=== PATIENT | male | born 1965 | race Caucasian/White ===

== ENCOUNTER 2016-12-02 18:53 | Emergency (ER) | payer OTHER ==
[~2016-12-02] VITALS: Ht 175.3 cm; Wt 75.0 kg
[~2016-12-02 18:53] MED LIST: GABA600T PO; HYDR-3533 PO; LANTINJ SQ
[2016-12-02 18:55] VITALS: BP 154/84; PULSE 89; RESP 20; TEMP 98.2; O2SAT 99
[2016-12-02] MEDS ORDERED: LEVEMIR SQ (23:07)
[2016-12-02] MEDS ORDERED: LYRI200C PO (23:07)
[2016-12-02] MEDS ORDERED: DULO1CAP2 PO (23:07)
--- NOTE | 2016-12-02 23:07 | PD ---
HPI Chief Complaint: Medical Clearance Time Seen by Provider: 22:46 Travel History International Travel<30 days: No Contact w/Intl Traveler<30days: No Traveled to known affect area: No History of Present Illness HPI 51-year-old male requesting refill for Cymbalta, Lyrica, Levemir. Patient has history of diabetes and diabetic neuropathy, cervical stenosis. Patient recently moved to [facility] and does not have a local physician. Patient ran out of his medication for the past 2 days. Patient denies any headache. Patient denies any chest pain or shortness of breath. Patient denies abdominal pain. Patient denies any recent injury. Patient denies any fever chills. PFSH Past Medical History Arthritis: No Asthma: No Autoimmune Disease: No Cardiovascular Problems: No COPD: No Cerebrovascular Accident: No Diabetes: Yes Diminished Hearing: No Gastrointestinal Disorders: No Kidney Stones: No Psychiatric: No Renal Failure: No Seizures: No Sleep Apnea: No PNEUMOCCOCAL Vaccine (Year): 3 Past Surgical History Other Surgery: Yes (RIGHT HAND) Social History Alcohol Use: No (quit last year) Tobacco Use: Yes (0.5 ppd) Substance Use: Yes (marijuana) Allergies-Medications (Allergen,Severity, Reaction): Coded Allergies: White Fish (Verified Allergy, Severe, 02/14/16) Reported Meds & Prescriptions Reported Meds & Active Scripts Active Lortab 5 mg/325 mg (Hydrocodone/Acetaminophen 5 mg/325 mg) 1 Tab 1 Tab PO Q6H PRN Reported Lantus Solostar Pen (Insulin Glargine) 100 Units/Ml Pen 12 Units SQ BID Gabapentin 600 Mg Tab 600 Mg PO BID Review of Systems General / Constitutional: No: Fever Eyes: No: Visual changes HENT: No: Headaches Cardiovascular: No: Chest Pain or Discomfort Respiratory: No: Shortness of Breath Gastrointestinal: No: Abdominal Pain Genitourinary: No: Dysuria Musculoskeletal: No: Pain Skin: No Rash Neurologic: No: Weakness Psychiatric: No: Depression Endocrine: No: Polydipsia Hematologic/Lymphatic: No: Easy Bruising Physical Exam Narrative GENERAL: Well-nourished, well-developed patient. SKIN: Focused skin assessment warm/dry. HEAD: Normocephalic. EYES: No scleral icterus. No injection or drainage. NECK: Supple, trachea midline. No JVD or lymphadenopathy. CARDIOVASCULAR: Regular rate and rhythm without murmurs, gallops, or rubs. RESPIRATORY: Breath sounds equal bilaterally. No accessory muscle use. GASTROINTESTINAL: Abdomen soft, non-tender, nondistended. MUSCULOSKELETAL: No cyanosis, or edema. BACK: Nontender without obvious deformity. No CVA tenderness. Neurologic exam: Patient's awake alert oriented 3. Patient moves all extremity well. Data Data Last Documented VS Vital Signs Date Time Temp Pulse Resp B/P Pulse Ox O2 Delivery O2 Flow Rate FiO2 12/02/16 18:55 98.2 89 20 154/84 99 MDM Medical Decision Making Medical Screen Exam Complete: Yes Emergency Medical Condition: Yes Differential Diagnosis Differential diagnosis including medication refill, hyperglycemia, DKA. Narrative Course 51-year-old male with history diabetes and diabetic neuropathy requesting refill medications. I advised patient that we'll refill 2 weeks of medications for him and advised patient to follow up with local physician for further refill and follow-up. Accu-Chek blood sugar in the ED is 101. Diagnosis Primary Impression: History of diabetes mellitus Additional Impression: Diabetic neuropathy Qualified Code: E08.43 - Diabetic autonomic neuropathy associated with diabetes mellitus due to underlying condition Patient Instructions: General Instructions Med/Other Pt SpecificInfo: Prescription(s) given Scripts Insulin Detemir Inj (Levemir Inj)1,000 unit/ 10 ML Vial16 Units SQ BID #10 VIAL Ref 0 Do not mix with any other Insulin. Prov:Enrique Dominguez MD 12/02/16 Pregabalin (Lyrica)200 Mg Bqw239 Mg PO BID #28 CAP Ref 0 Prov:Enrique Dominguez MD 12/02/[address] 30 Mg Capdr30 Mg PO DAILY #14 CAP Ref 0 Prov:Enrique Dominguez MD 12/02/16 Disposition: 01 DISCHARGE HOME Condition: Stable Enrique Dominguez MD December 02, 2016 23:07
== END 2016-12-02 23:25 | disposition home or self-care (01) ==
LOC: NEPD 18:53
DX: E11.40 Type 2 diabetes mellitus with diabetic neuropathy, unspecified (principal); F17.210 Nicotine dependence, cigarettes, uncomplicated
CPT/HCPCS: 99281

== ENCOUNTER 2017-11-04 11:28 | Inpatient (IN) | payer MEDICARE, MEDICAID ==
[~2017-11-04] VITALS: Ht 180.3 cm; Wt 74.1 kg
[2017-11-04] VITALS (9 sets, daily range): BP systolic 154–213; BP diastolic 75–100; PULSE 74–88; RESP 16–20; TEMP 98.4; O2SAT 94–96
[~2017-11-04 11:28] MED LIST changes: +DULO1CAP2 PO; -LANTINJ SQ; +LEVEMIR SQ; +LYRI200C PO
--- NOTE | 2017-11-04 12:09 | RADRPT ---
EXAM DATE/TIME: 11/04/2017 12:01 [facility] COMPARISON: No previous studies available for comparison. INDICATIONS : Chest pain and shortness of breath. MEDICAL HISTORY : Hypertension. SURGICAL HISTORY : None. ENCOUNTER: Initial ACUITY: 2 weeks PAIN SCORE: 3/10 LOCATION: Bilateral chest FINDINGS: PA and lateral views of the chest demonstrate a normal-sized cardiac silhouette. There is no effusion , consolidation, or pneumothorax. The bones and soft tissues demonstrate no acute abnormality. CONCLUSION: No acute cardiopulmonary abnormality is identified. Mohit Casanova MD on November 04, 2017 at 12:07 Board Certified Radiologist. This report was verified electronically.
[2017-11-04 12:41] LABS: AUTOMATED NEUTROPHIL # 2.3 TH/MM3 (1.8-7.7); BASOPHIL % 0.7 % (0.0-2.0); EOSINOPHIL % 1.1 % (0.0-4.0); HEMOGLOBIN 13.2 GM/DL (13.0-17.0); LYMPH % 20.2 % (9.0-44.0); LYMPHOCYTE # 0.7 TH/MM3 (1.0-4.8); MEAN CELL VOLUME 89.9 FL (80.0-100.0); MEAN CORPUSCULAR HEMOGLOBIN 29.8 PG (27.0-34.0); MEAN CORPUSCULAR HGB CONC 33.1 % (32.0-36.0); MEAN PLATELET VOLUME 9.7 FL (7.0-11.0); MONO % 14.2 % (0.0-8.0); MONOCYTE # 0.5 TH/MM3 (0-0.9); NEUT % 63.8 % (16.0-70.0); PLATELET COUNT 107 TH/MM3 (150-450); RED BLOOD COUNT 4.45 MIL/MM3 (4.50-5.90); RED CELL DISTRIBUTION WIDTH 14.4 % (11.6-17.2); WHITE BLOOD COUNT 3.6 TH/MM3 (4.0-11.0)
[2017-11-04 12:48] LABS: INTERNATIONAL NORMALIZED RATIO 1.1 RATIO
[2017-11-04 13:01] LABS: BICARBONATE 26.4 MEQ/L (21.0-32.0); BLOOD UREA NITROGEN 27 MG/DL (7-18); CALCIUM 8.2 MG/DL (8.5-10.1); CHLORIDE 105 MEQ/L (98-107); CREATININE 1.87 MG/DL (0.60-1.30); GLOMERULAR FILTRATION RATE 38 ML/MIN (>89); GLUCOSE,RANDOM 104 MG/DL (74-106); SODIUM (NA) 138 MEQ/L (136-145)
[2017-11-04 13:04] LABS: TROPONIN I 0.06 NG/ML (0.02-0.05)
--- NOTE | 2017-11-04 13:11 | PD ---
HPI Chief Complaint: Cardiac Complaint Time Seen by Provider: 12:55 Travel History International Travel<30 days: No Contact w/Intl Traveler<30days: No Traveled to known affect area: No History of Present Illness HPI 52-year-old male that presents to the ED for evaluation of chest pain. Patient has had chest pain for the past 2 weeks. Per patient comes and goes but seems to get worse with cough. Per patient he was seen by his primary care doctor today for evaluation of this this is been having cough and congestion and he thought he might just be bronchitis and he needed an antibiotic. Apparently the doctor did an EKG that was abnormal and told to come here. Patient has any history of heart disease. He states that he has had a stress test about a year or more ago. Has no solution designer. Has not taken aspirin today. He does have a history of diabetes and smoking. No recent travel. Pain is mostly to the right side of the chest. Per patient yesterday he had an episode of numbness and tingling to the right side of his body but this has since gone away. Per patient currently she still has chest pain in the chest pain is sharp 7 out of 10. Does not take any nitroglycerin. States having a little cough and congestion which she attributes to the symptoms. No history of headache or blurry vision or double vision. Has an allergy to fish. PFSH Past Medical History Arthritis: Yes Asthma: No Autoimmune Disease: No Cardiovascular Problems: No COPD: No Cerebrovascular Accident: No Diabetes: Yes Patient Takes Glucophage: No Diminished Hearing: No Gastrointestinal Disorders: No Hypertension: Yes Kidney Stones: No Musculoskeletal: Yes Psychiatric: No Renal Failure: No Seizures: No Sleep Apnea: No PNEUMOCCOCAL Vaccine (Year): 3 Past Surgical History Other Surgery: Yes (RIGHT HAND) Social History Alcohol Use: Yes (occu 4 days ago) Tobacco Use: Yes (1/2 ppd) Substance Use: No Allergies-Medications (Allergen,Severity, Reaction): Coded Allergies: Fish Containing Products (Unverified Allergy, Severe, 03/01/17) Reported Meds & Prescriptions Reported Meds & Active Scripts Active Levemir Inj (Insulin Detemir) 1,000 unit/ 10 ML Vial 16 Units SQ BID Do not mix with any other Insulin. Lyrica (Pregabalin) 200 Mg Cap 200 Mg PO BID Duloxetine DR (Duloxetine HCl) 30 Mg Capdr 30 Mg PO DAILY Review of Systems Except as stated in HPI: all other systems reviewed are Neg Physical Exam Narrative GENERAL: SKIN: Warm and dry. HEAD: Atraumatic. Normocephalic. EYES: Pupils equal and round. No scleral icterus. No injection or drainage. ENT: No nasal bleeding or discharge. Mucous membranes pink and moist. Tongue is midline. No uvula deviation. NECK: Trachea midline. No JVD. CARDIOVASCULAR: Regular rate and rhythm. No murmurs, S3, S4. RESPIRATORY: No accessory muscle use. Clear to auscultation. Breath sounds equal bilaterally. GASTROINTESTINAL: Abdomen soft, non-tender, nondistended. Hepatic and splenic margins not palpable. MUSCULOSKELETAL: Extremities without clubbing, cyanosis, or edema. No obvious deformities. Full range of motion of the upper and lower extremities bilaterally. 2+ pulses bilaterally. NEUROLOGICAL: Awake and alert. No obvious cranial nerve deficits. Motor grossly within normal limits. Five out of 5 muscle strength in the arms and legs. Normal speech. PSYCHIATRIC: Appropriate mood and affect; insight and judgment normal. Data Data Last Documented VS Vital Signs Date Time Temp Pulse Resp B/P (MAP) Pulse Ox O2 Delivery O2 Flow Rate FiO2 11/04/17 14:09 176/88 (117) 11/04/17 13:05 80 18 96 Room Air 11/04/17 11:45 98.4 Orders Orders Electrocardiogram (11/04/17 11:49) Complete Blood Count With Diff (11/04/17 11:49) Basic Metabolic Panel (Bmp) (11/04/17 11:49) Ckmb (Isoenzyme) Profile (11/04/17 11:49) Troponin I (11/04/17 11:49) Iv Access Insert/Monitor (11/04/17 11:49) Ecg Monitoring (11/04/17 11:49) Oxygen Administration (11/04/17 11:49) Oximetry (11/04/17 11:49) Chest, Pa & Lat (11/04/17 ) Act Partial Throm Time (Ptt) (11/04/17 11:49) Prothrombin Time / Inr (Pt) (11/04/17 11:49) D-Dimer (11/04/17 13:02) Ct Brain W/O Iv Contrast(Rout) (11/04/17 ) Aspirin (Aspirin) (11/04/17 13:15) CKMB (11/04/17 12:35) CKMB% (11/04/17 12:35) Nitroglycerin Sl (Nitrostat Sl) (11/04/17 13:15) Ventilation & Perfusion Scan (11/04/17 ) Nitroglycerin 2% Oint (Nitroglycerin 2% (11/04/17 13:30) Nitroglycerin-D5w 50 Mg/250 Ml (Nitrogly (11/04/17 14:00) Admit To Inpatient (11/04/17 ) Vital Signs (Adult) Q4H (11/04/17 15:12) Activity Oob Ad Marie (11/04/17 15:12) Hand Ii Blocker / Telemetry .CONTINUOUS (11/04/17 15:12) Intake + Output JACOBO.QSHIFT (11/04/17 15:12) Notify Dr: Other (11/04/17 15:12) Diet Npo (11/04/17 Dinner) Sodium Chloride 0.9% Flush (Ns Flush) (11/04/17 15:15) Sodium Chloride 0.9% Flush (Ns Flush) (11/04/17 21:00) Ondansetron Inj (Zofran Inj) (11/04/17 15:15) Basic Metabolic Panel (Bmp) (11/05/17 06:00) Complete Blood Count With Diff (11/05/17 06:00) Creatine Kinase (Cpk) (11/04/17 15:12) Creatine Kinase (Cpk) (11/04/17 21:12) Troponin I (11/04/17 15:12) Troponin I (11/04/17 21:12) Electrocardiogram (11/04/17 15:12) Electrocardiogram (11/04/17 21:12) Heparin Inj (Heparin Inj) (11/04/17 15:15) Scd Bilateral/Knee High JACOBO.BID (11/04/17 15:12) Naloxone Inj (Narcan Inj) (11/04/17 15:15) Docusate Sodium-Senna (Tasha-Colace) (11/04/17 21:00) Magnesium Hydroxide Liq (Milk Of Magnesi (11/04/17 15:15) Sennosides (Senokot) (11/04/17 15:15) Bisacodyl Supp (Dulcolax Supp) (11/04/17 15:15) Lactulose Liq (Lactulose Liq) (11/04/17 15:15) Inpatient Certification (11/04/17 ) Dulneo Carroll (Reynaldo Carroll) (11/05/17 09:00) Insulin Detemir Inj (Levemir Inj) (11/04/17 21:00) Pregabalin (Lyrica) (11/04/17 21:00) Bedside Glucose JACOBO.CSUGAR (11/04/17 15:15) Blood Glucose Goal (Criteria) (11/04/17 15:15) Hypoglycemia 70 Mg/Dl Or < (11/04/17 15:15) Notify Dr: Other (11/04/17 15:15) Dextrose 50% In Naveed (Vial) Inj (D50w (Vi (11/04/17 15:15) Glucagon Inj (Glucagon Inj) (11/04/17 15:15) Insulin Aspart Supplemtl Scale (Novolog (11/04/17 17:00) Morphine Inj (Morphine Inj) (11/04/17 15:30) Aspirin Ec (Ecotrin Ec) (11/05/17 09:00) Admit Order (Ed Use Only) (11/04/17 15:22) Labs Laboratory Tests Test 11/04/17 12:35 White Blood Count 3.6 TH/MM3 Red Blood Count 4.45 MIL/MM3 Hemoglobin 13.2 GM/DL Hematocrit 40.0 % Mean Corpuscular Volume 89.9 FL Mean Corpuscular Hemoglobin 29.8 PG Mean Corpuscular Hemoglobin Concent 33.1 % Red Cell Distribution Width 14.4 % Platelet Count 107 TH/MM3 Mean Platelet Volume 9.7 FL Neutrophils (%) (Auto) 63.8 % Lymphocytes (%) (Auto) 20.2 % Monocytes (%) (Auto) 14.2 % Eosinophils (%) (Auto) 1.1 % Basophils (%) (Auto) 0.7 % Neutrophils # (Auto) 2.3 TH/MM3 Lymphocytes # (Auto) 0.7 TH/MM3 Monocytes # (Auto) 0.5 TH/MM3 Eosinophils # (Auto) 0.0 TH/MM3 Basophils # (Auto) 0.0 TH/MM3 CBC Comment DIFF FINAL Differential Comment Prothrombin Time 11.0 SEC Prothromb Time International Ratio 1.1 RATIO Activated Partial Thromboplast Time 30.9 SEC D-Dimer Quantitative (PE/DVT) 1.21 MG/L FEU Blood Urea Nitrogen 27 MG/DL Creatinine 1.87 MG/DL Random Glucose 104 MG/DL Calcium Level 8.2 MG/DL Sodium Level 138 MEQ/L Potassium Level 3.8 MEQ/L Chloride Level 105 MEQ/L Carbon Dioxide Level 26.4 MEQ/L Anion Gap 7 MEQ/L Estimat Glomerular Filtration Rate 38 ML/MIN Total Creatine Kinase 207 U/L Creatine Kinase MB 8.5 NG/ML Troponin I 0.06 NG/ML MDM Medical Decision Making Medical Screen Exam Complete: Yes Emergency Medical Condition: Yes Medical Record Reviewed: Yes Interpretation(s) CBC & BMP Diagram 11/04/17 12:35 Calcium Level 8.2 L Last Impressions Head CT 11/04/17 0000 Signed Impressions: Service Date/Time: Saturday, November 04, 2017 13:18 - CONCLUSION: Negative for acute process Santi Melchor MD FACR Chest X-Ray 11/04/17 0000 Signed Impressions: Service Date/Time: Saturday, November 04, 2017 12:01 - CONCLUSION: No acute cardiopulmonary abnormality is identified. Mohit Casanova MD troponin of 0.06 d-dimmer elevated CK WNL EKG shows sinus rhythm with no sign of acute ischemia or arrythmia read by me and attending. some depressions noted. Differential Diagnosis Chest pain versus atypical chest pain versus ACS versus NSTEMI versus STEMI versus bronchitis versus CVA versus PE Narrative Course 52-year-old male that presents to the ED for evaluation of chest pain. Patient was properly examined and was found to have signs and symptoms concerning for ACS. Labs and imaging order. Labs and imaging were positive for positive troponin and d-dimer. VQ scan was ordered. Patient appears to be in acute kidney injury. Recommendation at this time is for admission. My attending evaluated him and recommends nitro drip. Patient already given aspirin and nitroglycerin while patient was in the room. Accommodations for admission further eval. My attending spoke with Dr. Easley who agrees to admission. Patient was admitted. Procedures EKG Prior to Arrival: Yes Diagnosis Primary Impression: Chest pain in adult Additional Impressions: Troponin level elevated Hypertension Qualified Codes: I10 - Essential (primary) hypertension Admitting Information Admitting Physician Requests: Admit Francisco Javier Heard Nov 04, 2017 13:10
[2017-11-04] MEDS ORDERED: NITROGLYCERIN 0.4 MG SL 25 TABS/BTL SL ONE (13:15)
[2017-11-04] MEDS ORDERED: ASPIRIN 325 MG TAB PO ONE (13:15)
--- NOTE | 2017-11-04 13:27 | RADRPT ---
EXAM DATE/TIME: 11/04/2017 13:18 [facility] COMPARISON: No previous studies available for comparison. INDICATIONS : Right sided numbness with dizziness. RADIATION DOSE: 35.53 CTDIvol (mGy) MEDICAL HISTORY : Hypertension. diabetes SURGICAL HISTORY : None. ENCOUNTER: Initial ACUITY: 1 day PAIN SCALE: 0/10 LOCATION: cranial TECHNIQUE: Multiple contiguous axial images were obtained of the head. Using automated exposure control and adj ustment of the mA and/or kV according to patient size, radiation dose was kept as low as reasonably a chievable to obtain optimal diagnostic quality images. DICOM format image data is available electro nically for review and comparison. FINDINGS: CEREBRUM: The ventricles are normal for age. No evidence of midline shift, mass lesion, hemorrhage or acute in farction. No extra-axial fluid collections are seen. POSTERIOR FOSSA: The cerebellum and brainstem are intact. The 4th ventricle is midline. The cerebellopontine angle i s unremarkable. EXTRACRANIAL: The visualized portion of the orbits is intact. SKULL: The calvaria is intact. No evidence of skull fracture. CONCLUSION: Negative for acute process Santi Melchor MD FACR on November 04, 2017 at 13:24 Board Certified Radiologist. This report was verified electronically.
[2017-11-04] MEDS ORDERED: NITROGLYCERIN 2% OINT 1 GM PACKET TOPICAL ONE (13:30)
[2017-11-04] MEDS ORDERED: NITROGLYCERIN-D5W 50 MG/250 ML 250 ML IV PRN ×2 (14:00→16:15)
--- NOTE | 2017-11-04 14:01 | PD ---
Physical Exam Narrative I, Dr. Piper, have reviewed the advance practice practitioner's documentation and am in agreement, met with the patient face to face, made the diagnosis, and the medical decision making was done by me. *My assessment and Findings: ACS vs. Pneumonia vs. bronchitis vs. TIA 52yo M here because he was sent by his doctor's office for abnormal EKG. Pt had chest pain that is across his chest for 2 weeks. Pain is pressure like and constant. Associated with sob and worst with cough, and bending down. Pt also said his right side was weak and numb yesterday but now has improved. Said he had right facial, right arm and right leg weakness and numbness that has resolved. Just a little tingling in right hand. Pt does not have any geoscientist and denies any heart attack or stroke. Labs reviewed, WBC 3.6. Mild thrombocytopenia at 107,000. BUN/creatinine elevated at 27/1.87 which is new from prior. Troponin mildly elevated at 0.06. D-dimer elevated. Unable to do CT angio due to elevated creatinine so VQ scan ordered. CXR negative. CT brain negative. Pt's chest pain is very atypical although EKG is concerning for ischemia. Troponin may be elevated secondary to ROCIO. Will consult cardiology. BP is still very elevated so will place pt on nitroglycerin drip and reevaluate chest pain. Discussed patient with geoscientist Dr. Reeder and he feels the this is LVH pattern. Discussed with Dr. Savage and accepted to her service. Data Data Last Documented VS Vital Signs Date Time Temp Pulse Resp B/P (MAP) Pulse Ox O2 Delivery O2 Flow Rate FiO2 11/04/17 14:09 176/88 (117) 11/04/17 13:05 80 18 96 Room Air 11/04/17 11:45 98.4 Orders Orders Electrocardiogram (11/04/17 11:49) Complete Blood Count With Diff (11/04/17 11:49) Basic Metabolic Panel (Bmp) (11/04/17 11:49) Ckmb (Isoenzyme) Profile (11/04/17 11:49) Troponin I (11/04/17 11:49) Iv Access Insert/Monitor (11/04/17 11:49) Ecg Monitoring (11/04/17 11:49) Oxygen Administration (11/04/17 11:49) Oximetry (11/04/17 11:49) Chest, Pa & Lat (11/04/17 ) Act Partial Throm Time (Ptt) (11/04/17 11:49) Prothrombin Time / Inr (Pt) (11/04/17 11:49) D-Dimer (11/04/17 13:02) Ct Brain W/O Iv Contrast(Rout) (11/04/17 ) Aspirin (Aspirin) (11/04/17 13:15) CKMB (11/04/17 12:35) CKMB% (11/04/17 12:35) Nitroglycerin Sl (Nitrostat Sl) (11/04/17 13:15) Ventilation & Perfusion Scan (11/04/17 ) Nitroglycerin 2% Oint (Nitroglycerin 2% (11/04/17 13:30) Nitroglycerin-D5w 50 Mg/250 Ml (Nitrogly (11/04/17 14:00) Vital Signs (Adult) Q4H (11/04/17 15:12) Activity Oob Ad Marie (11/04/17 15:12) Glass Wool Blanket Machine Feeder / Telemetry .CONTINUOUS (11/04/17 15:12) Intake + Output JACOBO.QSHIFT (11/04/17 15:12) Notify Dr: Other (11/04/17 15:12) Sodium Chloride 0.9% Flush (Ns Flush) (11/04/17 15:15) Sodium Chloride 0.9% Flush (Ns Flush) (11/04/17 21:00) Ondansetron Inj (Zofran Inj) (11/04/17 15:15) Basic Metabolic Panel (Bmp) (11/05/17 06:00) Complete Blood Count With Diff (11/05/17 06:00) Creatine Kinase (Cpk) (11/04/17 15:12) Creatine Kinase (Cpk) (11/04/17 21:12) Troponin I (11/04/17 15:12) Troponin I (11/04/17 21:12) Electrocardiogram (11/04/17 15:12) Electrocardiogram (11/04/17 21:12) Heparin Inj (Heparin Inj) (11/04/17 15:15) Scd Bilateral/Knee High JACOBO.BID (11/04/17 15:12) Naloxone Inj (Narcan Inj) (11/04/17 15:15) Docusate Sodium-Senna (Tasha-Colace) (11/04/17 21:00) Magnesium Hydroxide Liq (Milk Of Magnesi (11/04/17 15:15) Sennosides (Senokot) (11/04/17 15:15) Bisacodyl Supp (Dulcolax Supp) (11/04/17 15:15) Lactulose Liq (Lactulose Liq) (11/04/17 15:15) Duloxetine Dr (Reynaldo Carroll) (11/05/17 09:00) Insulin Detemir Inj (Levemir Inj) (11/04/17 21:00) Pregabalin (Lyrica) (11/04/17 21:00) Bedside Glucose JACOBO.CSUGAR (11/04/17 15:15) Blood Glucose Goal (Criteria) (11/04/17 15:15) Hypoglycemia 70 Mg/Dl Or < (11/04/17 15:15) Notify Dr: Other (11/04/17 15:15) Dextrose 50% In Naveed (Vial) Inj (D50w (Vi (11/04/17 15:15) Glucagon Inj (Glucagon Inj) (11/04/17 15:15) Insulin Aspart Supplemtl Scale (Novolog (11/04/17 17:00) Morphine Inj (Morphine Inj) (11/04/17 15:30) Aspirin Ec (Ecotrin Ec) (11/05/17 09:00) Admit Order (Ed Use Only) (11/04/17 15:22) Labs Laboratory Tests Test 11/04/17 12:35 White Blood Count 3.6 TH/MM3 Red Blood Count 4.45 MIL/MM3 Hemoglobin 13.2 GM/DL Hematocrit 40.0 % Mean Corpuscular Volume 89.9 FL Mean Corpuscular Hemoglobin 29.8 PG Mean Corpuscular Hemoglobin Concent 33.1 % Red Cell Distribution Width 14.4 % Platelet Count 107 TH/MM3 Mean Platelet Volume 9.7 FL Neutrophils (%) (Auto) 63.8 % Lymphocytes (%) (Auto) 20.2 % Monocytes (%) (Auto) 14.2 % Eosinophils (%) (Auto) 1.1 % Basophils (%) (Auto) 0.7 % Neutrophils # (Auto) 2.3 TH/MM3 Lymphocytes # (Auto) 0.7 TH/MM3 Monocytes # (Auto) 0.5 TH/MM3 Eosinophils # (Auto) 0.0 TH/MM3 Basophils # (Auto) 0.0 TH/MM3 CBC Comment DIFF FINAL Differential Comment Prothrombin Time 11.0 SEC Prothromb Time International Ratio 1.1 RATIO Activated Partial Thromboplast Time 30.9 SEC D-Dimer Quantitative (PE/DVT) 1.21 MG/L FEU Blood Urea Nitrogen 27 MG/DL Creatinine 1.87 MG/DL Random Glucose 104 MG/DL Calcium Level 8.2 MG/DL Sodium Level 138 MEQ/L Potassium Level 3.8 MEQ/L Chloride Level 105 MEQ/L Carbon Dioxide Level 26.4 MEQ/L Anion Gap 7 MEQ/L Estimat Glomerular Filtration Rate 38 ML/MIN Total Creatine Kinase 207 U/L Creatine Kinase MB 8.5 NG/ML Troponin I 0.06 NG/ML MDM Supervised Visit with GINGER: Yes Interpretation(s) EKG: NSR 81bpm. Normal axis. 1mm ST elevation V1. Mild ST depression V5, V6. This is new from prior. EKG unchanged from EKG done in clinic. Machelle Piper DO Nov 04, 2017 14:01
[2017-11-04] MEDS ORDERED: NALOXONE HCL 0.4 MG/ML AMP IV PUSH PRN (15:15)
[2017-11-04] MEDS: HEPARIN SODIUM - SQ 10,000 UNITS/ML VIAL SQ SCH (15:15)
[2017-11-04] MEDS ORDERED: GLUCAGON 1 MG/ML VIAL OTHER PRN (15:15)
[2017-11-04] MEDS ORDERED: SODIUM CHLORIDE 0.9% FLUSH 10 ML FLUSH IV FLUSH PRN (15:15)
[2017-11-04] MEDS ORDERED: ONDANSETRON HCL 4 MG/2 ML VIAL IVP PRN (15:15)
[2017-11-04] MEDS ORDERED: BISACODYL 10 MG SUPP RECTAL PRN (15:15)
[2017-11-04] MEDS ORDERED: PHARMACY NEEDS HT/WT ENTERED INTO MEDITECH OTHER SCH (15:15)
[2017-11-04] MEDS ORDERED: MAGNESIUM HYDROXIDE SUSP 30 ML CUP PO PRN (15:15)
[2017-11-04] MEDS ORDERED: LACTULOSE SYRUP 20 GM/30 ML CUP PO PRN (15:15)
[2017-11-04] MEDS ORDERED: SENNOSIDES 8.6 MG TAB PO PRN (15:15)
[2017-11-04] MEDS ORDERED: DEXTROSE 50% IN WATER 50 ML VIAL(D50) IV PUSH PRN (15:15)
--- NOTE | 2017-11-04 15:49 | RADRPT ---
EXAM DATE/TIME: 11/04/2017 14:19 [facility] COMPARISON: CHEST PA & LAT, November 04, 2017, 12:01. INDICATIONS : Right sided chest pain for two weeks with dyspnea. DOSE: 1.2 mCi Tc99m DTPA 8.8 mCi Tc99m MAA MEDICAL HISTORY : Diabetes mellitus type 2. Hypertension. SURGICAL HISTORY : Right hand. ENCOUNTER: Initial ACUITY: 2 weeks PAIN SCALE: 4/10 LOCATION: Right chest TECHNIQUE: Following five minutes of tidal breathing of DTPA aerosol, planar images of the lungs were performed in eight projections. The patient was then injected with MAA, and eight-view perfusion scan was perf ormed. FINDINGS: There is a homogeneous pattern of aerosol delivery to the periphery of both lungs. No focal ventilat ory defects are seen. The perfusion lung scan demonstrates a homogenous pattern of uptake in both lungs. No segmental or s ubsegmental defects are seen. CONCLUSION: Low probability scan for pulmonary embolism Mohit Milan MD on November 04, 2017 at 15:43 Board Certified Radiologist. This report was verified electronically.
[2017-11-04] MEDS: INSULIN ASPART SUPPLEMENTAL SCALE SQ SCH ×2 (16:42→23:19)
[2017-11-04 17:17] LABS: TROPONIN I 0.05 NG/ML (0.02-0.05)
--- NOTE | 2017-11-04 20:00 | HHI.HP ---
[facility] Service [facility] Primary Care Physician Non-Staff Admission Diagnosis chest pain, positive troponin, hypertension Diagnoses: (1) Chest pain Diagnosis: Principal (2) HTN (hypertension) Diagnosis: Principal (3) Abnormal EKG Diagnosis: Principal (4) DM (diabetes mellitus) Diagnosis: Principal (5) Tobacco abuse Diagnosis: Principal Travel History International Travel<30 Days: No Contact w/Intl Traveler <30 Da: No Traveled to Known Affected Are: No History of Present Illness This is a 52-year-old male with a PMH of HTN, DM and Tobacco Abuse who was referred to the ER by his PCP for eval of chest pain and abnormal EKG. Per patient he's had ongoing congestion and non-productive cough for approx 2wks. Symptoms progressive, now associated w/ chest pain. Pain is substernal, 8/10, constant, sharp, worse w/ lying down. Went to PCP to get Rx for Z-pack and had abnormal EKG at which time he was referred to the ER. Reports no improvement w / NTG. No h/o CAD. On arrival, BP 190/91, HR 84, O2 sat 96% on RA, Afebrile. CBC essentially unremarkable, platelets 107, previously 136 on 02/14/2016. Creatinine 1.87, previously 0.84 on 02/14/2016. Troponin 0.06. D-dimer 1.21. INR 1.1. CXR with no acute findings. CT Head negative. V/Q Scan low probability for PE. Review of Systems Except as stated in HPI: all other systems reviewed are Neg ROS: 14 point review of systems otherwise negative. Past Family Social History Past Medical History PMH: HTN, DM and Tobacco Abuse Past Surgical History PAST SURGICAL HISTORY: Right Hand Surgery Allergies: Coded Allergies: Fish Containing Products (Unverified Allergy, Severe, 03/01/17) Family History PAST FAMILY HISTORY: Reviewed. No h/o DM or CAD Social History PAST SOCIAL HISTORY: Occasional alcohol. Smokes 1/2ppd. Negative for drugs. Physical Exam Vital Signs Vital Signs Date Time Temp Pulse Resp B/P (MAP) Pulse Ox O2 Delivery O2 Flow Rate FiO2 4/20/18 16:09 74 18 154/75 (101) 94 Room Air 11/04/17 14:09 176/88 (117) 11/04/17 13:29 196/91 (126) 11/04/17 13:05 80 18 213/100 (137) 96 Room Air 11/04/17 13:05 97 Room Air 11/04/17 11:45 98.4 84 16 190/91 (124) 96 Physical Exam PE: GENERAL: Middle-aged white male in no acute distress. +wet cough. Family at bedside. HEENT: PERRLA, EOMI. No scleral icterus or conjunctival pallor. No lid lag or facial droop. CARDIOVASCULAR: Regular rate and rhythm. No obvious murmurs to auscultation. No chest tenderness to palpation. RESPIRATORY: No obvious rhonchi or wheezing. Clear to auscultation. Breath sounds equal bilaterally. GASTROINTESTINAL: Abdomen soft, non-tender, nondistended. BS normal. MUSCULOSKELETAL: Extremities without clubbing, cyanosis, or edema. No obvious deformities. NEUROLOGICAL: Awake, alert and oriented x4. No focal neurologic deficits. Moving both upper and lower extremities spontaneously. Laboratory Laboratory Tests Test 11/04/17 12:35 11/04/17 16:34 White Blood Count 3.6 Red Blood Count 4.45 Hemoglobin 13.2 Hematocrit 40.0 Mean Corpuscular Volume 89.9 Mean Corpuscular Hemoglobin 29.8 Mean Corpuscular Hemoglobin Concent 33.1 Red Cell Distribution Width 14.4 Platelet Count 107 Mean Platelet Volume 9.7 Neutrophils (%) (Auto) 63.8 Lymphocytes (%) (Auto) 20.2 Monocytes (%) (Auto) 14.2 Eosinophils (%) (Auto) 1.1 Basophils (%) (Auto) 0.7 Neutrophils # (Auto) 2.3 Lymphocytes # (Auto) 0.7 Monocytes # (Auto) 0.5 Eosinophils # (Auto) 0.0 Basophils # (Auto) 0.0 CBC Comment DIFF FINAL Differential Comment Prothrombin Time 11.0 Prothromb Time International Ratio 1.1 Activated Partial Thromboplast Time 30.9 D-Dimer Quantitative (PE/DVT) 1.21 Blood Urea Nitrogen 27 Creatinine 1.87 Random Glucose 104 Calcium Level 8.2 Sodium Level 138 Potassium Level 3.8 Chloride Level 105 Carbon Dioxide Level 26.4 Anion Gap 7 Estimat Glomerular Filtration Rate 38 Total Creatine Kinase 207 172 Creatine Kinase MB 8.5 Troponin I 0.06 0.05 Result Diagram: 11/04/17 1235 11/04/17 1235 Caprinfloyd VTE Risk Assessment Jose Davidrini VTE Risk Assessment: No/Low Risk (score <= 1) Caprini Risk Assessment Model Point Value = 1 Point Value = 2 Point Value = 3 Point Value = 5 Age 41-60 Minor surgery BMI > 25 kg/m2 Swollen legs Varicose veins or History of unexplained or recurrent spontaneous Oral contraceptives or hormone replacement Sepsis (< 1 month) Serious lung disease, including pneumonia (< 1 month) Abnormal pulmonary function Acute myocardial infarction Congestive heart failure (< 1 month) History of inflammatory bowel disease Medical patient at bed rest Age 61-74 Arthroscopic surgery Major open surgery (> 45 min) Laparoscopic surgery (> 45 min) Malignancy Confined to bed (> 72 hours) Immobilizing plaster cast Central venous access Age >= 75 History of VTE Family history of VTE Factor V Leiden Prothrombin [id number] Lupus anticoagulant Anticardiolipin antibodies Elevated serum homocysteine Heparin-induced thrombocytopenia Other congenital or acquired thrombophilia Stroke (< 1 month) Elective arthroplasty Hip, pelvis, or leg fracture Acute spinal cord injury (< 1 month) Prophylaxis Regimen Total Risk Factor Score Risk Level Prophylaxis Regimen 0-1 Low Early ambulation 2 Moderate Order ONE of the following: *Sequential Compression Device (SCD) *Heparin 5000 units SQ BID 3-4 Higher Order ONE of the following medications: *Heparin 5000 units SQ TID *Enoxaparin/Lovenox 40 mg SQ daily (WT < 150 kg, CrCl > 30 mL/min) *Enoxaparin/Lovenox 30 mg SQ daily (WT < 150 kg, CrCl > 10-29 mL/min) *Enoxaparin/Lovenox 30 mg SQ BID (WT < 150 kg, CrCl > 30 mL/min) AND/OR *Sequential Compression Device (SCD) 5 or more Highest Order ONE of the following medications: *Heparin 5000 units SQ TID (Preferred with Epidurals) *Enoxaparin/Lovenox 40 mg SQ daily (WT < 150 kg, CrCl > 30 mL/min) *Enoxaparin/Lovenox 30 mg SQ daily (WT < 150 kg, CrCl > 10-29 mL/min) *Enoxaparin/Lovenox 30 mg SQ BID (WT < 150 kg, CrCl > 30 mL/min) AND *Sequential Compression Device (SCD) Assessment and Plan Problem List: (1) Chest pain ICD Code: R07.9 - Chest pain, unspecified (2) Abnormal EKG ICD Code: R94.31 - Abnormal electrocardiogram [ECG] [EKG] (3) HTN (hypertension) ICD Code: I10 - Essential (primary) hypertension (4) DM (diabetes mellitus) ICD Code: E11.9 - Type 2 diabetes mellitus without complications (5) Tobacco abuse ICD Code: Z72.0 - Tobacco use Assessment and Plan A/P: 1. Chest Pain: w/ associated cough/congestion, worse when lying down, CXR w/ no acute findings, images reviewed by me. Initial trop 0.06, repeat trop 0.05. Will admit for Observation, Telemetry, check serial cardiac enzymes for trend. ASA, Statin, Metoprolol. Check Lipid Profile. Reports no improvement w / NTG and c/o headache, will hold. Morphine prn. 2. Abnormal EKG: referred to ER for abnormal outpatient EKG in PCP office, EKG here w/ some ST depressions, but no elevations to suggest acute ischemia. Will repeat EKG w/ next set of trop. Consult Cardiology for further recommendations in light of chest pain and abnormal EKG. Multiple risk factors including HTN, DM and Tobacco Abuse. 3. HTN: Uncontrolled. BP 200's on arrival, start Metoprolol, monitor BP, antihypertensives as needed. 4. DM: Sliding scale w/ Accu-Cheks. Check Hgb A1c, resume home Insulin. 5. Tobacco Abuse: Pt counselled. Ativan prn if needed. No NicoDerm to avoid vasoconstriction. 6. DVT Prophylaxis: Heparin sq 7. Social work for DC planning as needed. 8. Case discussed at length with the ER physician, lab/record/imaging reviewed by me. Leah Guadarrama MD Nov 04, 2017 20:00
[2017-11-04] MEDS ORDERED: RESP: ALBUTEROL 2.5 MG/IPRATROPIUM 0.5 MG NEB (PRN) NEB (20:15)
[2017-11-04] MEDS: DOCUSATE SODIUM 50 MG/SENNA 8.6 MG TAB PO SCH (21:00)
[2017-11-04 22:56] LABS: TROPONIN I 0.05 NG/ML (0.02-0.05)
[2017-11-04] MEDS: PREGABALIN 100 MG CAP PO SCH (23:17)
[2017-11-04] MEDS: guaiFENesin E.R. 600 MG TAB PO SCH (23:17)
[2017-11-04] MEDS: INSULIN DETEMIR 100 UNITS/ML VIAL SQ SCH (23:18)
[2017-11-04] MEDS: SODIUM CHLORIDE 0.9% FLUSH 10 ML FLUSH IV FLUSH SCH (23:18)
[2017-11-04] MEDS: METOPROLOL TARTRATE 25 MG TAB PO SCH (23:18)
[2017-11-04] MEDS: LORazepam 2 MG/ML VIAL IV PUSH PRN (23:20)
[2017-11-04] MEDS: MORPHINE SULFATE 2 MG/ML SYRINGE IV PUSH PRN (23:20)
[2017-11-05] VITALS (9 sets, daily range): BP systolic 125–165; BP diastolic 60–87; PULSE 67–78; RESP 16–20; TEMP 97.8–98.4; O2SAT 95–96
[2017-11-05] MEDS: INSULIN ASPART SUPPLEMENTAL SCALE SQ SCH ×4 (08:00→20:42)
[2017-11-05 08:31] LABS: AUTOMATED NEUTROPHIL # 2.4 TH/MM3 (1.8-7.7); BASOPHIL % 0.7 % (0.0-2.0); EOSINOPHIL % 0.3 % (0.0-4.0); HEMATOCRIT 36.1 % (39.0-51.0); HEMOGLOBIN 12.1 GM/DL (13.0-17.0); LYMPHOCYTE # 0.8 TH/MM3 (1.0-4.8); MEAN CELL VOLUME 88.1 FL (80.0-100.0); MEAN CORPUSCULAR HEMOGLOBIN 29.6 PG (27.0-34.0); MEAN CORPUSCULAR HGB CONC 33.6 % (32.0-36.0); MEAN PLATELET VOLUME 10.2 FL (7.0-11.0); MONO % 13.6 % (0.0-8.0); MONOCYTE # 0.5 TH/MM3 (0-0.9); NEUT % 64.4 % (16.0-70.0); PLATELET COUNT 97 TH/MM3 (150-450); RED CELL DISTRIBUTION WIDTH 13.9 % (11.6-17.2); WHITE BLOOD COUNT 3.8 TH/MM3 (4.0-11.0)
[2017-11-05 08:52] LABS: BICARBONATE 23.6 MEQ/L (21.0-32.0); BLOOD UREA NITROGEN 26 MG/DL (7-18); CALCIUM 7.8 MG/DL (8.5-10.1); CHLORIDE 107 MEQ/L (98-107); CREATININE 1.95 MG/DL (0.60-1.30); GLOMERULAR FILTRATION RATE 36 ML/MIN (>89); GLUCOSE,RANDOM 136 MG/DL (74-106); SODIUM (NA) 138 MEQ/L (136-145)
[2017-11-05 08:53] LABS: CHOLESTEROL 173 MG/DL (120-200)
[2017-11-05 08:55] LABS: CHOLESTEROL/ HDL RATIO 5.22 RATIO; HDL CHOLESTEROL 33.1 MG/DL (40.0-60.0); LDL CHOLESTEROL 120 MG/DL (0-99); TRIGLYCERIDES 99 MG/DL (42-150)
--- NOTE | 2017-11-05 08:59 | HHI.PR ---
Subjective Remarks The patient is in bed appears in no acute distress at this time. Does not have any chest pain. He feels tired. No shortness of breath no diaphoresis or nausea. Says she feels a little improved. Had headaches overnight however no more headaches at this time. Blood pressure is better controlled. Objective Vitals Vital Signs Date Time Temp Pulse Resp B/P (MAP) Pulse Ox O2 Delivery O2 Flow Rate FiO2 11/05/17 07:53 125/60 (81) 11/05/17 05:00 78 18 156/73 (100) 96 Room Air 11/05/17 03:00 78 20 147/69 (95) 96 Room Air 11/04/17 23:00 84 20 175/81 (112) 95 Room Air 11/04/17 22:30 80 20 185/82 (116) 96 Room Air 11/04/17 20:30 88 20 190/93 (125) 95 Room Air 11/04/17 19:30 82 20 181/84 (116) 96 Room Air 11/04/17 16:09 74 18 154/75 (101) 94 Room Air 11/04/17 14:09 176/88 (117) 11/04/17 13:29 196/91 (126) 11/04/17 13:05 80 18 213/100 (137) 96 Room Air 11/04/17 13:05 97 Room Air 11/04/17 11:45 98.4 84 16 190/91 (124) 96 Result Diagram: 11/05/17 0755 11/05/17 0755 Imaging Last Impressions Lung Scan-V Nuclear Medicine 11/04/17 0000 Signed Impressions: Service Date/Time: Saturday, November 04, 2017 14:19 - CONCLUSION: Low probability scan for pulmonary embolism Mohit Milan MD Head CT 11/04/17 0000 Signed Impressions: Service Date/Time: Saturday, November 04, 2017 13:18 - CONCLUSION: Negative for acute process Santi Melchor MD FACR Chest X-Ray 11/04/17 0000 Signed Impressions: Service Date/Time: Saturday, November 04, 2017 12:01 - CONCLUSION: No acute cardiopulmonary abnormality is identified. Mohit Casanova MD Objective Remarks GENERAL: Middle-aged white male in no acute distress. +wet cough. Family at bedside. HEENT: PERRLA, EOMI. No scleral icterus or conjunctival pallor. No lid lag or facial droop. CARDIOVASCULAR: Regular rate and rhythm. No obvious murmurs to auscultation. No chest tenderness to palpation. RESPIRATORY: No obvious rhonchi or wheezing. Clear to auscultation. Breath sounds equal bilaterally. GASTROINTESTINAL: Abdomen soft, non-tender, nondistended. BS normal. MUSCULOSKELETAL: Extremities without clubbing, cyanosis, or edema. No obvious deformities. NEUROLOGICAL: Awake, alert and oriented x4. No focal neurologic deficits. Moving both upper and lower extremities spontaneously. A/P Problem List: (1) Chest pain ICD Code: R07.9 - Chest pain, unspecified (2) Abnormal EKG ICD Code: R94.31 - Abnormal electrocardiogram [ECG] [EKG] (3) HTN (hypertension) ICD Code: I10 - Essential (primary) hypertension (4) DM (diabetes mellitus) ICD Code: E11.9 - Type 2 diabetes mellitus without complications (5) Tobacco abuse ICD Code: Z72.0 - Tobacco use Assessment and Plan Pleuritic chest pain with associated cough/congestion, worse when lying down CXR reviewed no acute findings Initial trop 0.06, repeat trop 0.05. Telemetry, check serial cardiac enzymes for trend. ASA, Statin, Metoprolol. Lipid Profile. No improvement with NTG and c/o headache, will hold. Morphine prn. Abnormal EKG: referred to ER for abnormal outpatient EKG in PCP office, EKG here w/ some ST depressions, but no elevations to suggest acute ischemia. Repeat EKG w/ next set of trop. Consult Cardiology for further recommendations in light of chest pain and abnormal EKG. Multiple risk factors including HTN, DM and Tobacco Abuse. Hypertensive emergency with ROCIO: Uncontrolled. BP 213/100 on arrival, start Metoprolol, monitor BP, antihypertensives as needed. Might contribute to the cause of elevated trops and CP ROCIO Cr in [facility] 0.5 to 0.8. Cr today at 1.9. Kidney indices worsening today. Will do kidney US, check UA. Consult nephrology. Start gentle IVF.. monitor BP. Avoid nephrotoxic agents. DM2: Sliding scale w/ Accu-Cheks. Check Hgb A1c, resume home Insulin. Tobacco Abuse: Pt counselled. Ativan prn if needed. No NicoDerm to avoid vasoconstriction. DVT Prophylaxis: Heparin sq CM consulted for DC planning as needed. Discussed with the patient, nurse Carmen Deal MD Nov 05, 2017 08:59
[2017-11-05] MEDS: METOPROLOL TARTRATE 25 MG TAB PO SCH (09:33)
[2017-11-05] MEDS: MORPHINE SULFATE 2 MG/ML SYRINGE IV PUSH PRN ×3 (09:35→22:37)
[2017-11-05] MEDS: PREGABALIN 100 MG CAP PO SCH ×2 (09:42→22:27)
[2017-11-05] MEDS: DULoxetine HCl DR 30 MG CAP PO SCH (09:42)
[2017-11-05] MEDS: SODIUM CHLORIDE 0.9% FLUSH 10 ML FLUSH IV FLUSH SCH ×2 (09:42→22:27)
[2017-11-05] MEDS: ASPIRIN EC 325 MG TABEC PO SCH (09:42)
[2017-11-05] MEDS: HEPARIN SODIUM - SQ 10,000 UNITS/ML VIAL SQ SCH ×3 (09:43→22:28)
[2017-11-05] MEDS: DOCUSATE SODIUM 50 MG/SENNA 8.6 MG TAB PO SCH ×2 (09:43→21:00)
[2017-11-05] MEDS: PRAVASTATIN SOD 40 MG TAB PO SCH (09:43)
[2017-11-05] MEDS: guaiFENesin E.R. 600 MG TAB PO SCH ×2 (09:43→22:27)
--- NOTE | 2017-11-05 10:00 | RADRPT ---
EXAM DATE/TIME: 11/05/2017 09:35 [place] COMPARISON: No previous studies available for comparison. INDICATIONS : Increased BUN/Creatnine. MEDICAL HISTORY : Hypertension. Numbness. Left sided abdominal pain. Arthritis. Diabetes. Right elbow fracture. SURGICAL HISTORY : Right elbow surgery. Left shoulder surgery. Right hand surgery. ENCOUNTER: Initial ACUITY: 1 day PAIN SCORE: 0/10 LOCATION: Bilateral flank MEASUREMENTS: RIGHT KIDNEY: 13.2 x 5.7 x 5.5 cm LEFT KIDNEY: 13.1 x 5.2 x 6.1 cm FINDINGS: RIGHT KIDNEY: Renal cortex is normal in thickness and echotexture. No hydronephrosis, stone, or mass. LEFT KIDNEY: Renal cortex is normal in thickness and echotexture. No hydronephrosis, stone, or mass. BLADDER: Within normal limits given the degree of distension. Incidental note of a cystic lesion in the spleen is noted measuring 2.8 x 2.3 cm. The prostate gland is mildly prominent. CONCLUSION: 1. The kidneys are unremarkable appearance with no hydronephrosis. 2. Cystic structure identified in the spleen. 3. Mild prostatic enlargement. Josiah Trevino MD on November 05, 2017 at 9:57 Board Certified Radiologist. This report was verified electronically.
[2017-11-05] MEDS: SODIUM CHLOR 0.9% 1000 ML INJ 1,000 ML IV SCH ×2 (10:11→23:33)
[2017-11-05] MEDS: INSULIN DETEMIR 100 UNITS/ML VIAL SQ SCH ×2 (10:11→22:24)
[2017-11-05 10:30] LABS: BANDS 12 % (0-6); MONOCYTES 5 % (0-8); NEUTROPHIL # MANUAL DIFF 2.6 TH/MM3 (1.8-7.7)
[2017-11-05 10:31] LABS: LYMPHOCYTES 26 % (9-44); POLYS (SEG NEUTROPHILS) 57 % (16-70)
[2017-11-05 10:39] LABS: ALBUMIN 1.8 GM/DL (3.4-5.0); AST (GOT) 33 U/L (15-37); BICARBONATE 23.4 MEQ/L (21.0-32.0); BLOOD UREA NITROGEN 26 MG/DL (7-18); CALCIUM 8.2 MG/DL (8.5-10.1); CHLORIDE 108 MEQ/L (98-107); GLOMERULAR FILTRATION RATE 37 ML/MIN (>89); GLUCOSE,RANDOM 135 MG/DL (74-106); SODIUM (NA) 138 MEQ/L (136-145)
[2017-11-05 10:40] LABS: ALT (GPT) 19 U/L (12-78)
[2017-11-05 10:42] LABS: ALKALINE PHOSPHATASE 84 U/L (45-117); TOTAL BILIRUBIN ADULT 0.2 MG/DL (0.2-1.0); TOTAL PROTEIN 6.7 GM/DL (6.4-8.2)
--- NOTE | 2017-11-05 11:31 | PD.CONS ---
HPI Service Nephrology Consult Requested By Dr. Valverde Reason for Consult Acute kidney injury Primary Care Physician Non-Staff History of Present Illness Patient is a 52 year old male with a past medical history of diabetes for 14 years, fibromyalgia, and neuropathy. Patient presented to the ED after being evaluated by primary care provider for a upper respiratory infection with cough for over 2 weeks. Primary care did a EKG and abnormalities was noted and sent to ER. Found to be hypertensive in the ED with SBP as high as in the 200's. He reports that he does not have a history of hypertension. Nephrology was consulted for acute kidney injury with a creatinine of 1.90. Has a creatinine of 0.84 in January of 2016. Kidney ultrasound done and kidneys are unremarkable with no hydronephrosis. Mild prostatic enlargement noted. NS is infusing at 75 ml/hr. (Lea Tan) Review of Systems Constitutional: COMPLAINS OF: Fatigue Respiratory: COMPLAINS OF: Cough, DENIES: Shortness of breath Cardiovascular: COMPLAINS OF: Chest pain Gastrointestinal: COMPLAINS OF: Abdominal pain, DENIES: Diarrhea Genitourinary: DENIES: Urgency, Hematuria, Dysuria Musculoskeletal: COMPLAINS OF: Joint pain, Muscle aches (Lea Tan) Past Family Social History Allergies: Coded Allergies: Fish Containing Products (Unverified Allergy, Severe, 03/01/17) Past Medical History Diabetes for 14 years Neuropathy Fibromyalgia Past Surgical History Right hand surgery Right elbow surgery Left shoulder pain. Active Ordered Medications Current Medications Medications (Trade) Dose Ordered Sig/Loco Route Start Time Stop Time Status Last Admin (NS Flush) 2 ml UNSCH PRN IV FLUSH 11/04/17 15:15 (NS Flush) 2 ml BID IV FLUSH 11/04/17 21:00 11/05/17 09:42 (Zofran Inj) 4 mg Q6H PRN IVP 11/04/17 15:15 (Heparin Inj) 5,000 units Q12HR SQ 11/04/17 15:15 11/05/17 09:43 (Narcan Inj) 0.4 mg UNSCH PRN IV PUSH 11/04/17 15:15 (Tasha-Colace) 1 tab BID PO 11/04/17 21:00 11/05/17 09:43 (Milk Of Magnesia Liq) 30 ml Q12H PRN PO 11/04/17 15:15 (Senokot) 17.2 mg Q12H PRN PO 11/04/17 15:15 (Dulcolax Supp) 10 mg DAILY PRN RECTAL 11/04/17 15:15 (Lactulose Liq) 30 ml DAILY PRN PO 11/04/17 15:15 (Cymbalta [address]) 30 mg DAILY PO 11/05/17 09:00 11/05/17 09:42 (Levemir Inj) 16 units BID SQ 11/04/17 21:00 11/05/17 10:11 (Lyrica) 200 mg BID PO 11/04/17 21:00 11/05/17 09:42 (D50w (Vial) Inj) 50 ml UNSCH PRN IV PUSH 11/04/17 15:15 (Glucagon Inj) 1 mg UNSCH PRN OTHER 11/04/17 15:15 (NovoLOG SUPPLEMENTAL SCALE) 1 ACHS SLIDING SCALE SQ 11/04/17 17:00 (Morphine Inj) 1 mg Q4H PRN IV PUSH 11/04/17 15:30 11/04/17 23:20 (Ecotrin Ec) 325 mg DAILY PO 11/05/17 09:00 11/05/17 09:42 (Lopressor) 25 mg Q12HR PO 11/04/17 21:00 11/05/17 09:33 (Pravachol) 40 mg DAILY PO 11/05/17 09:00 11/05/17 09:43 (Ativan Inj) 1 mg Q2H PRN IV PUSH 11/04/17 20:00 11/04/17 23:20 (Morphine Inj) 2 mg Q4H PRN IV PUSH 11/04/17 20:15 11/05/17 09:35 (Mucinex Er) 600 mg BID PO 11/04/17 21:00 11/05/17 09:43 (Duoneb Neb) 1 ampule Q4HR NEB PRN NEB 11/04/17 20:15 Sodium Chloride 1,000 ml @ 70 mls/hr [id number] IV 11/05/17 10:00 11/05/17 10:11 Social History Smokes 1 pk of cigarettes per day Drinks 2-3 beers daily Marijuana and cocaine use. Lives with family (Lea Tan) Physical Exam Vital Signs Vital Signs Date Time Temp Pulse Resp B/P (MAP) Pulse Ox O2 Delivery O2 Flow Rate FiO2 11/05/17 07:53 125/60 (81) 11/05/17 05:00 78 18 156/73 (100) 96 Room Air 11/05/17 03:00 78 20 147/69 (95) 96 Room Air 11/04/17 23:00 84 20 175/81 (112) 95 Room Air 11/04/17 22:30 80 20 185/82 (116) 96 Room Air 11/04/17 20:30 88 20 190/93 (125) 95 Room Air 11/04/17 19:30 82 20 181/84 (116) 96 Room Air 11/04/17 16:09 74 18 154/75 (101) 94 Room Air 11/04/17 14:09 176/88 (117) 11/04/17 13:29 196/91 (126) 11/04/17 13:05 80 18 213/100 (137) 96 Room Air 11/04/17 13:05 97 Room Air 11/04/17 11:45 98.4 84 16 190/91 (124) 96 Physical Exam GENERAL: Alert and oriented SKIN: Warm and dry. HEAD: Normocephalic. EYES: No scleral icterus. No injection or drainage. NECK: Supple, trachea midline. No JVD or lymphadenopathy. CARDIOVASCULAR: Regular rate and rhythm. Murmur RESPIRATORY: Breath sounds equal bilaterally. No accessory muscle use. GASTROINTESTINAL: Abdomen soft, nondistended, tenderness noted on palpation. MUSCULOSKELETAL: No cyanosis, or edema. BACK: Nontender without obvious deformity. No CVA tenderness. Laboratory Laboratory Tests Test 11/04/17 12:35 11/04/17 16:34 11/04/17 22:15 11/05/17 07:55 White Blood Count 3.6 3.8 Red Blood Count 4.45 4.10 Hemoglobin 13.2 12.1 Hematocrit 40.0 36.1 Mean Corpuscular Volume 89.9 88.1 Mean Corpuscular Hemoglobin 29.8 29.6 Mean Corpuscular Hemoglobin Concent 33.1 33.6 Red Cell Distribution Width 14.4 13.9 Platelet Count 107 97 Mean Platelet Volume 9.7 10.2 Neutrophils (%) (Auto) 63.8 64.4 Lymphocytes (%) (Auto) 20.2 21.0 Monocytes (%) (Auto) 14.2 13.6 Eosinophils (%) (Auto) 1.1 0.3 Basophils (%) (Auto) 0.7 0.7 Neutrophils # (Auto) 2.3 2.4 Lymphocytes # (Auto) 0.7 0.8 Monocytes # (Auto) 0.5 0.5 Eosinophils # (Auto) 0.0 0.0 Basophils # (Auto) 0.0 0.0 CBC Comment DIFF FINAL AUTO DIFF Differential Comment FINAL DIFF MANUAL Prothrombin Time 11.0 Prothromb Time International Ratio 1.1 Activated Partial Thromboplast Time 30.9 D-Dimer Quantitative (PE/DVT) 1.21 Blood Urea Nitrogen 27 26 Creatinine 1.87 1.90 Random Glucose 104 135 Calcium Level 8.2 8.2 Sodium Level 138 138 Potassium Level 3.8 4.1 Chloride Level 105 108 Carbon Dioxide Level 26.4 23.4 Anion Gap 7 7 Estimat Glomerular Filtration Rate 38 37 Total Creatine Kinase 207 172 156 Creatine Kinase MB 8.5 Troponin I 0.06 0.05 0.05 Differential Total Cells Counted 100 Neutrophils % (Manual) 57 Band Neutrophils % 12 Lymphocytes % 26 Monocytes % 5 Neutrophils # (Manual) 2.6 Platelet Estimate LOW Platelet Morphology Comment NORMAL Red Cell Morphology Comment NORMAL Total Protein 6.7 Albumin 1.8 Alkaline Phosphatase 84 Aspartate Amino Transf (AST/SGOT) 33 Alanine Aminotransferase (ALT/SGPT) 19 Total Bilirubin 0.2 Triglycerides Level 99 Cholesterol Level 173 LDL Cholesterol 120 HDL Cholesterol 33.1 Cholesterol/HDL Ratio 5.22 (Lea Tan) Result Diagram: 11/05/17 0755 11/05/17 0755 Imaging Last Impressions Renal Ultrasound 11/05/17 0000 Signed Impressions: Service Date/Time: Sunday, November 05, 2017 09:35 - CONCLUSION: 1. The kidneys are unremarkable appearance with no hydronephrosis. 2. Cystic structure identified in the spleen. 3. Mild prostatic enlargement. Josiah Trevino MD Lung Scan- Nuclear Medicine 11/04/17 0000 Signed Impressions: Service Date/Time: Saturday, November 04, 2017 14:19 - CONCLUSION: Low probability scan for pulmonary embolism Mohit Milan MD Head CT 11/04/17 0000 Signed Impressions: Service Date/Time: Saturday, November 04, 2017 13:18 - CONCLUSION: Negative for acute process Santi Melchor MD FACR Chest X-Ray 11/04/17 0000 Signed Impressions: Service Date/Time: Saturday, November 04, 2017 12:01 - CONCLUSION: No acute cardiopulmonary abnormality is identified. Mohit Casanova MD (Lea Tan) Assessment and Plan Problem List: (1) Acute kidney injury ICD Codes: N17.9 - Acute kidney failure, unspecified Plan: Acute kidney injury with a creatinine of 1.90. Has a creatinine of 0.84 in January of 2016. ROCIO from possible prerenal from poor intake vs ATN from infection. Kidney ultrasound done and kidneys are unremarkable with no hydronephrosis. Mild prostatic enlargement noted. Plan Continue gentle hydration NS at 75 ml/hr. Avoid nephrotoxins Check UA and urine studies. Monitor urinary output and BMP (2) Hypertension ICD Codes: I10 - Essential (primary) hypertension Status: Acute Plan: On metoprolol Blood pressure has improved will monitor (3) Chest pain in adult ICD Codes: R07.9 - Chest pain, unspecified Status: Acute Plan: Cardiology consulted. Reports chest pain (4) DM (diabetes mellitus) ICD Codes: E11.9 - Type 2 diabetes mellitus without complications Plan: Maintain blood sugars between 140 mg/dl to 180 mg/dl On insulin (Lea Tan) Problem List: (1) Acute kidney injury ICD Codes: N17.9 - Acute kidney failure, unspecified Plan: Acute kidney injury with a creatinine of 1.90. Has a creatinine of 0.84 in January of 2016. ROCIO from possible prerenal from poor intake vs ATN from infection. Kidney ultrasound done and kidneys are unremarkable with no hydronephrosis. Mild prostatic enlargement noted. Plan Continue gentle hydration NS at 75 ml/hr. Avoid nephrotoxins Check UA and urine studies. Monitor urinary output and BMP. Patient seen and examined, agree with above. Has Acute kidney injury, with possible chronic kidney disease. Creatinine was normal in January 2016 but had proteinuria at that time. (2) Hypertension ICD Codes: I10 - Essential (primary) hypertension Status: Acute Plan: On metoprolol Blood pressure has improved will monitor (3) Chest pain in adult ICD Codes: R07.9 - Chest pain, unspecified Status: Acute Plan: Cardiology consulted. Reports chest pain (4) DM (diabetes mellitus) ICD Codes: E11.9 - Type 2 diabetes mellitus without complications Plan: Maintain blood sugars between 140 mg/dl to 180 mg/dl On insulin (Nnamdi Cheney MD) Problem Qualifiers (1) Hypertension: Qualified Codes: I10 - Essential (primary) hypertension Lea Tan Nov 05, 2017 11:31 Nnamdi Cheney MD Nov 06, 2017 14:31
[2017-11-05 13:23] LABS: HEMOGLOBIN A1C 6.1 % (4.3-6.0)
--- NOTE | 2017-11-05 16:57 | EKG ---
Date Performed: 11/04/2017 Time Performed: 16:29:14 PTAGE: 52 years EKG: Sinus rhythm NONSPECIFIC T-WAVE ABNORMALITY BORDERLINE ECG Since the PREVIOUS TRACING , no significant change noted PREVIOUS TRACIN11/04/2017 12.22 DOCTOR: Azael Reeder Interpretating Date/Time 11/05/2017 16:53:17
--- NOTE | 2017-11-05 16:58 | EKG ---
Date Performed: 11/04/2017 Time Performed: 22:26:40 PTAGE: 52 years EKG: Sinus rhythm POSSIBLE LEFT ATRIAL ENLARGEMENT NONSPECIFIC ST & T-WAVE ABNORMALITY ABNORMAL ECG Since the PREVIOUS TRACING , no significant change noted PREVIOUS TRACIN11/04/2017 16.29 DOCTOR: Azael Reeder Interpretating Date/Time 11/05/2017 16:53:25
[2017-11-05 17:01] LABS: BILIRUBIN, URINE NEG (NEG); BLOOD, URINE MOD (NEG); GLUCOSE,URINE 70 mg/dL (NEG); HYALINE CAST, URINE 2 /lpf (RARE); KETONE, URINE NEG (NEG); MUCUS URINE FEW /lpf (OCC); NITRITE,URINE NEG (NEG); PH, URINE 6.5 (5.0-8.5); URINE COLOR YELLOW (YELLW/STRAW); URINE LEUKOCYTE ESTERASE NEG (NEG)
[2017-11-05 17:05] LABS: CREATININE, RANDOM URINE 102.9 MG/DL
--- NOTE | 2017-11-05 18:23 | EKG ---
Date Performed: 11/04/2017 Time Performed: 12:22:51 PTAGE: 52 years EKG: Sinus rhythm WITH SHORT SC INTERVAL NONSPECIFIC T-WAVE ABNORMALITY Compared to previous tracing, ST-T wave abnorm alities new BORDERLINE ECG PREVIOUS TRACING : 10/22/2015 12.45 DOCTOR: Azael Reeder Interpretating Date/Time 11/05/2017 18:23:00
[2017-11-05] MEDS: LORazepam 2 MG/ML VIAL IV PUSH PRN (22:33)
[2017-11-06] VITALS (21 sets, daily range): BP systolic 152–197; BP diastolic 75–106; PULSE 63–106; RESP 14–20; TEMP 97.9–99.8; O2SAT 94–97
[2017-11-06] MEDS: MORPHINE SULFATE 2 MG/ML SYRINGE IV PUSH PRN ×2 (05:25→09:41)
[2017-11-06 07:18] LABS: BASOPHIL % 0.6 % (0.0-2.0); EOSINOPHIL # 0.1 TH/MM3 (0-0.4); EOSINOPHIL % 2.2 % (0.0-4.0); HEMATOCRIT 35.9 % (39.0-51.0); LYMPHOCYTE # 1.2 TH/MM3 (1.0-4.8); MEAN CORPUSCULAR HEMOGLOBIN 29.7 PG (27.0-34.0); MEAN CORPUSCULAR HGB CONC 33.3 % (32.0-36.0); MEAN PLATELET VOLUME 10.6 FL (7.0-11.0); MONO % 12.1 % (0.0-8.0); MONOCYTE # 0.3 TH/MM3 (0-0.9); NEUT % 38.1 % (16.0-70.0); PLATELET COUNT 78 TH/MM3 (150-450); RED BLOOD COUNT 4.03 MIL/MM3 (4.50-5.90); RED CELL DISTRIBUTION WIDTH 14.2 % (11.6-17.2); WHITE BLOOD COUNT 2.5 TH/MM3 (4.0-11.0)
[2017-11-06] MEDS: INSULIN ASPART SUPPLEMENTAL SCALE SQ SCH ×4 (08:24→22:20)
[2017-11-06] MEDS: guaiFENesin E.R. 600 MG TAB PO SCH ×2 (09:37→22:30)
[2017-11-06] MEDS: PRAVASTATIN SOD 40 MG TAB PO SCH (09:38)
[2017-11-06] MEDS: ASPIRIN EC 325 MG TABEC PO SCH (09:38)
[2017-11-06] MEDS: DOCUSATE SODIUM 50 MG/SENNA 8.6 MG TAB PO SCH ×2 (09:38→22:30)
[2017-11-06] MEDS: DULoxetine HCl DR 30 MG CAP PO SCH (09:38)
[2017-11-06] MEDS: SODIUM CHLORIDE 0.9% FLUSH 10 ML FLUSH IV FLUSH SCH ×2 (09:39→20:43)
[2017-11-06] MEDS: PREGABALIN 100 MG CAP PO SCH ×2 (09:39→22:30)
[2017-11-06] MEDS: HEPARIN SODIUM - SQ 10,000 UNITS/ML VIAL SQ SCH ×2 (09:39→22:10)
[2017-11-06] MEDS: INSULIN DETEMIR 100 UNITS/ML VIAL SQ SCH ×2 (09:40→22:31)
--- NOTE | 2017-11-06 12:46 | HHI.NPPN ---
Subjective History of Present Illness 52 year old male with a past medical history of diabetes for 14 years, fibromyalgia, and neuropathy. Patient presented to the ED after being evaluated by primary care provider for a upper respiratory infection with cough for over 2 weeks. Primary care did a EKG and abnormalities was noted and sent to ER. Found to be hypertensive in the ED with SBP as high as in the 200's. He reports that he does not have a history of hypertension. Nephrology was consulted for elevated creatinine of 1.90. Objective Data Data Vital Signs Date Time Temp Pulse Resp B/P (MAP) Pulse Ox O2 Delivery O2 Flow Rate FiO2 11/06/17 06:07 16 11/06/17 05:14 73 16 189/95 (126) 96 11/06/17 00:00 69 16 159/77 (104) 96 11/06/17 00:00 63 11/05/17 23:30 16 11/05/17 20:15 97.8 67 18 162/87 (112) 96 11/05/17 20:15 68 11/05/17 18:00 68 11/05/17 18:00 72 11/05/17 17:00 70 11/05/17 16:00 70 11/05/17 15:00 98.4 72 16 165/86 (112) 95 11/05/17 15:00 72 11/05/17 14:47 147/71 (96) -: 11/06/17 0510 11/05/17 0755 Assessment/Plan Problem List: (1) Acute kidney injury ICD Codes: N17.9 - Acute kidney failure, unspecified Plan: Acute kidney injury with a creatinine of 1.90. Has a creatinine of 0.84 in January of 2016. ROCIO from possible prerenal from poor intake vs ATN from infection. Kidney ultrasound done and kidneys are unremarkable with no hydronephrosis. Mild prostatic enlargement noted. Plan Continue gentle hydration NS at 75 ml/hr. Avoid nephrotoxins Check UA and urine studies. Monitor urinary output and BMP. Patient seen and examined, agree with above. Possibly has an element of Chronic kidney disease also. Creatinine stable, if discharge, will need close out patient follow up. (2) Hypertension ICD Codes: I10 - Essential (primary) hypertension Status: Acute Plan: On metoprolol Blood pressure has improved will monitor (3) Chest pain in adult ICD Codes: R07.9 - Chest pain, unspecified Status: Acute Plan: Cardiology consulted. Reports chest pain (4) DM (diabetes mellitus) ICD Codes: E11.9 - Type 2 diabetes mellitus without complications Plan: Maintain blood sugars between 140 mg/dl to 180 mg/dl On insulin Problem Qualifiers (1) Hypertension: Qualified Codes: I10 - Essential (primary) hypertension Nnamdi Cheney MD Nov 06, 2017 12:46
[2017-11-06] MEDS: SODIUM CHLOR 0.9% 1000 ML INJ 1,000 ML IV SCH (14:36)
[2017-11-06] MEDS ORDERED: ASPI-516 CHEW (14:53)
[2017-11-06] MEDS ORDERED: PRAV40TA PO (14:53)
[2017-11-06] MEDS ORDERED: AZIT250T3 PO (15:05)
[2017-11-06] MEDS ORDERED: cloNIDine HCL 0.1 MG TAB PO ONE (15:45)
[2017-11-06] MEDS ORDERED: ENALAPRILAT 2.5 MG/2 ML VIAL IV PUSH ONE (17:00)
[2017-11-06] MEDS ORDERED: ALPRAZolam 0.25 MG TAB PO ONE (17:00)
--- NOTE | 2017-11-06 17:13 | HHI.DS ---
Discharge Summary Admission Date Nov 05, 2017 at 09:07 Discharge Date: Nov 06, 2017 Admitting Diagnosis chest pain, positive troponin, hypertension (1) Chest pain ICD Code: R07.9 - Chest pain, unspecified (2) Abnormal EKG ICD Code: R94.31 - Abnormal electrocardiogram [ECG] [EKG] (3) HTN (hypertension) ICD Code: I10 - Essential (primary) hypertension (4) DM (diabetes mellitus) ICD Code: E11.9 - Type 2 diabetes mellitus without complications (5) Tobacco abuse ICD Code: Z72.0 - Tobacco use Procedures none Brief History - From Admission This is a 52-year-old male with a PMH of HTN, DM and Tobacco Abuse who was referred to the ER by his PCP for eval of chest pain and abnormal EKG. Per patient he's had ongoing congestion and non-productive cough for approx 2wks. Symptoms progressive, now associated w/ chest pain. Pain is substernal, 8/10, constant, sharp, worse w/ lying down. Went to PCP to get Rx for Z-pack and had abnormal EKG at which time he was referred to the ER. Reports no improvement w / NTG. No h/o CAD. On arrival, BP 190/91, HR 84, O2 sat 96% on RA, Afebrile. CBC essentially unremarkable, platelets 107, previously 136 on 02/14/2016. Creatinine 1.87, previously 0.84 on 02/14/2016. Troponin 0.06. D-dimer 1.21. INR 1.1. CXR with no acute findings. CT Head negative. V/Q Scan low probability for PE. CBC/BMP: 11/06/17 0510 11/05/17 0755 Significant Findings Laboratory Tests Test 11/04/17 12:35 11/04/17 16:34 11/04/17 22:15 11/05/17 07:55 White Blood Count 3.6 TH/MM3 (4.0-11.0) 3.8 TH/MM3 (4.0-11.0) Red Blood Count 4.45 MIL/MM3 (4.50-5.90) 4.10 MIL/MM3 (4.50-5.90) Platelet Count 107 TH/MM3 (150-450) 97 TH/MM3 (150-450) Monocytes (%) (Auto) 14.2 % (0.0-8.0) 13.6 % (0.0-8.0) Lymphocytes # (Auto) 0.7 TH/MM3 (1.0-4.8) 0.8 TH/MM3 (1.0-4.8) Activated Partial Thromboplast Time 30.9 SEC (24.3-30.1) D-Dimer Quantitative (PE/DVT) 1.21 MG/L FEU (0.00-0.50) Blood Urea Nitrogen 27 MG/DL (7-18) 26 MG/DL (7-18) Creatinine 1.87 MG/DL (0.60-1.30) 1.90 MG/DL (0.60-1.30) Calcium Level 8.2 MG/DL (8.5-10.1) 8.2 MG/DL (8.5-10.1) Estimat Glomerular Filtration Rate 38 ML/MIN (>89) 37 ML/MIN (>89) Creatine Kinase MB 8.5 NG/ML (0.5-3.6) Troponin I 0.06 NG/ML (0.02-0.05) Hemoglobin 12.1 GM/DL (13.0-17.0) Hematocrit 36.1 % (39.0-51.0) Band Neutrophils % 12 % (0-6) Platelet Estimate LOW (NORMAL) Random Glucose 135 MG/DL (74-106) Albumin 1.8 GM/DL (3.4-5.0) Chloride Level 108 MEQ/L (98-107) Hemoglobin A1c 6.1 % (4.3-6.0) LDL Cholesterol 120 MG/DL (0-99) HDL Cholesterol 33.1 MG/DL (40.0-60.0) Test 11/05/17 16:00 11/06/17 05:10 Urine Protein 300 mg/dL (NEG-TRACE) Urine Glucose (UA) 70 mg/dL (NEG) Urine Occult Blood MOD (NEG) Urine RBC 43 /hpf (0-3) Urine Mucus FEW /lpf (OCC) Urine Cocaine Screen POS (NEG) Urine Cannabinoids Screen POS (NEG) White Blood Count 2.5 TH/MM3 (4.0-11.0) Red Blood Count 4.03 MIL/MM3 (4.50-5.90) Hemoglobin 12.0 GM/DL (13.0-17.0) Hematocrit 35.9 % (39.0-51.0) Platelet Count 78 TH/MM3 (150-450) Lymphocytes (%) (Auto) 47.0 % (9.0-44.0) Monocytes (%) (Auto) 12.1 % (0.0-8.0) Neutrophils # (Auto) 1.0 TH/MM3 (1.8-7.7) Platelet Estimate LOW (NORMAL) PE at Discharge GENERAL: Middle-aged white male in no acute distress. +wet cough. Family at bedside. HEENT: PERRLA, EOMI. No scleral icterus or conjunctival pallor. No lid lag or facial droop. CARDIOVASCULAR: Regular rate and rhythm. No obvious murmurs to auscultation. No chest tenderness to palpation. RESPIRATORY: No obvious rhonchi or wheezing. Clear to auscultation. Breath sounds equal bilaterally. GASTROINTESTINAL: Abdomen soft, non-tender, nondistended. BS normal. MUSCULOSKELETAL: Extremities without clubbing, cyanosis, or edema. No obvious deformities. NEUROLOGICAL: Awake, alert and oriented x4. No focal neurologic deficits. Moving both upper and lower extremities spontaneously. Hospital Course 52-year-old male with a history of cocaine abuse who presents to the ER with chest pain yesterday. His urine toxicology showed positive cocaine in his system. I spent time explaining to him how cocaine causes vasospasm and can induce chest pain and even cause a heart attack. His troponins were unimpressive, his initial EKG showed some abnormality but follow up EKGs were normal, all fit the picture of cocaine induced vasospasm. He explained to me that it is vitally important that he be discharged today and wanted to go as soon as 4 PM. After offering him stress test and requesting that he wait more time for cardiology patient has still elected to go home. He initially came in for a Z-Tru for his cough and I will discharge him per his wish home with a Z- Tru and supportive meds. 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 I strongly recommended that he never use cocaine again. Pt Condition on Discharge: Good Discharge Disposition: Discharge Home Discharge Time: <= 30 minutes Discharge Instructions DIET: Follow Instructions for: Heart Healthy Diet Activities you can perform: Regular-No Restrictions Ellis Kong MD Nov 06, 2017 17:13
[2017-11-06] MEDS ORDERED: hydrALAZINE HCL 20 MG/ML VIAL IV PUSH ONE ×2 (19:15→20:30)
[2017-11-07] VITALS (18 sets, daily range): BP systolic 114–146; BP diastolic 62–90; PULSE 72–96; RESP 20; TEMP 98.3–99.3; O2SAT 92–94
--- NOTE | 2017-11-07 00:14 | EKG ---
Date Performed: 11/06/2017 Time Performed: 05:03:44 PTAGE: 52 years EKG: Sinus rhythm Lateral T wave changes are nonspecific Borderline ECG PREVIOUS TRACING : 11/04/2017 22.26 Compared to previous tracing, rate has decreased DOCTOR: Renny Gupta Interpretating Date/Time 11/07/2017 00:13:41
[2017-11-07] MEDS: SODIUM CHLOR 0.9% 1000 ML INJ 1,000 ML IV SCH (04:54)
[2017-11-07] MEDS: INSULIN ASPART SUPPLEMENTAL SCALE SQ SCH ×2 (07:56→11:42)
[2017-11-07] MEDS: DOCUSATE SODIUM 50 MG/SENNA 8.6 MG TAB PO SCH ×2 (08:48→08:58)
[2017-11-07] MEDS: SODIUM CHLORIDE 0.9% FLUSH 10 ML FLUSH IV FLUSH SCH (08:48)
[2017-11-07] MEDS: guaiFENesin E.R. 600 MG TAB PO SCH (08:48)
[2017-11-07] MEDS: DULoxetine HCl DR 30 MG CAP PO SCH (08:48)
[2017-11-07] MEDS: PREGABALIN 100 MG CAP PO SCH (08:48)
[2017-11-07] MEDS: PRAVASTATIN SOD 40 MG TAB PO SCH (08:49)
[2017-11-07] MEDS: ASPIRIN EC 325 MG TABEC PO SCH (08:49)
[2017-11-07] MEDS: MORPHINE SULFATE 2 MG/ML SYRINGE IV PUSH PRN (08:50)
[2017-11-07] MEDS: INSULIN DETEMIR 100 UNITS/ML VIAL SQ SCH (08:51)
[2017-11-07] MEDS: HEPARIN SODIUM - SQ 10,000 UNITS/ML VIAL SQ SCH (08:51)
--- NOTE | 2017-11-07 13:14 | HHI.NPPN ---
Subjective History of Present Illness 52 year old male with a past medical history of diabetes for 14 years, fibromyalgia, and neuropathy. Patient presented to the ED after being evaluated by primary care provider for a upper respiratory infection with cough for over 2 weeks. Primary care did a EKG and abnormalities was noted and sent to ER. Found to be hypertensive in the ED with SBP as high as in the 200's. He reports that he does not have a history of hypertension. Nephrology was consulted for elevated creatinine of 1.90. Additional Remarks Reports mild chest discomfort. Cough present. (Lea Tan) Review of Systems Respiratory Lungs: SOB Respiratory Remarks mild (Lea Tan) Cardiovascular Cardiac: Chest Pain (Lea Tan) Gastrointestinal GI Remarks Denies abdominal pain (Lea Tan) Objective Data Data Vital Signs Date Time Temp Pulse Resp B/P (MAP) Pulse Ox O2 Delivery O2 Flow Rate FiO2 11/07/17 12:46 72 11/07/17 11:06 78 11/07/17 11:06 98.8 78 20 114/62 (79) 92 11/07/17 10:01 78 11/07/17 09:50 18 11/07/17 09:00 96 11/07/17 08:59 16 11/07/17 08:01 88 11/07/17 07:57 92 11/07/17 07:57 99.1 92 20 139/75 (96) 94 11/07/17 06:38 78 11/07/17 05:00 86 11/07/17 04:00 84 11/07/17 03:01 99.3 90 20 146/90 (108) 93 11/07/17 03:00 90 11/07/17 02:00 92 11/07/17 01:00 88 11/07/17 00:00 88 11/06/17 23:15 99.8 95 18 190/90 (123) 94 11/06/17 23:00 95 11/06/17 22:00 94 11/06/17 21:00 106 11/06/17 20:49 97.9 80 18 187/92 (123) 96 11/06/17 20:00 82 11/06/17 19:00 79 11/06/17 18:00 75 11/06/17 17:00 79 11/06/17 16:00 98.6 84 18 197/106 (136) 94 11/06/17 16:00 81 11/06/17 15:00 78 11/06/17 14:00 75 (Lea Tan) -: 11/06/17 0510 11/05/17 0755 Imaging Last Impressions Renal Ultrasound 11/05/17 0000 Signed Impressions: Service Date/Time: Sunday, November 05, 2017 09:35 - CONCLUSION: 1. The kidneys are unremarkable appearance with no hydronephrosis. 2. Cystic structure identified in the spleen. 3. Mild prostatic enlargement. Josiah Trevino MD Lung Scan-V Nuclear Medicine 11/04/17 0000 Signed Impressions: Service Date/Time: Saturday, November 04, 2017 14:19 - CONCLUSION: Low probability scan for pulmonary embolism Mohit Milan MD Head CT 11/04/17 0000 Signed Impressions: Service Date/Time: Saturday, November 04, 2017 13:18 - CONCLUSION: Negative for acute process Santi Melchor MD FACR Chest X-Ray 11/04/17 0000 Signed Impressions: Service Date/Time: Saturday, November 04, 2017 12:01 - CONCLUSION: No acute cardiopulmonary abnormality is identified. Mohit Casanova MD (Lea Tan) Physical Exam General Appearance: No Acute Distress, Comfortable (Lea Tan) Pulmonary Resp Exam: Breath Sounds Equal, Rhonchi, Decreased Bases (Lea Tan) Cardiology CV Exam: Regular (Lea Tan) Gastrointestinal/Abdomen GI Exam: Soft, Non-Tender, Bowel Sounds Present (Lea Tan) Genitourinary Exam: Flank Non-Tender (Lea Tan) Integumentary Skin Exam: Clear, Warm (Lea Tan) Extremeties Extremities Exam: No Edema (Lea Tan) Neurologic Neuro Exam: Alert, Awake (Lea Tan) Psychiatric Psych Exam: Appropriate Responses (Lea Tan) Assessment/Plan Problem List: (1) Acute kidney injury ICD Codes: N17.9 - Acute kidney failure, unspecified Plan: Acute kidney injury with a creatinine of 1.90. Has a creatinine of 0.84 in January of 2016. ROCIO from possible prerenal from poor intake vs ATN from infection. Possibly has an element of Chronic kidney disease also. Kidney ultrasound done and kidneys are unremarkable with no hydronephrosis. Mild prostatic enlargement noted. Plan Avoid nephrotoxins Monitor urinary output and BMP. Patient seen and examined, agree with above. Plans for discharge will need close out patient follow up. (2) Hypertension ICD Codes: I10 - Essential (primary) hypertension Status: Acute Plan: On metoprolol Blood pressure has improved will monitor (3) Chest pain in adult ICD Codes: R07.9 - Chest pain, unspecified Status: Acute Plan: Cardiology consulted. Reports chest pain (4) DM (diabetes mellitus) ICD Codes: E11.9 - Type 2 diabetes mellitus without complications Plan: Maintain blood sugars between 140 mg/dl to 180 mg/dl On insulin (Lea Tan) Problem List: (1) Acute kidney injury ICD Codes: N17.9 - Acute kidney failure, unspecified Plan: Acute kidney injury with a creatinine of 1.90. Has a creatinine of 0.84 in January of 2016. ROCIO from possible prerenal from poor intake vs ATN from infection. Possibly has an element of Chronic kidney disease also. Kidney ultrasound done and kidneys are unremarkable with no hydronephrosis. Mild prostatic enlargement noted. Plan Avoid nephrotoxins Monitor urinary output and BMP. Patient seen and examined, agree with above. Plans for discharge will need close out patient follow up. (2) Hypertension ICD Codes: I10 - Essential (primary) hypertension Status: Acute Plan: On metoprolol Blood pressure has improved will monitor (3) Chest pain in adult ICD Codes: R07.9 - Chest pain, unspecified Status: Acute Plan: Cardiology consulted. Reports chest pain (4) DM (diabetes mellitus) ICD Codes: E11.9 - Type 2 diabetes mellitus without complications Plan: Maintain blood sugars between 140 mg/dl to 180 mg/dl On insulin (Nnamdi Cheney MD) Problem Qualifiers (1) Hypertension: Qualified Codes: I10 - Essential (primary) hypertension Lea Tan Nov 07, 2017 13:14 Nnamdi Cheney MD Nov 07, 2017 17:49
== END 2017-11-07 17:21 | disposition home or self-care (01) | DRG 897 ==
LOC: NEPE 11:28 → INTOOBSV 15:23 → NEDA 15:23 → NEDH 20:00 → OBSVTOIN 11-05 09:07 → HCIS 11-05 14:52
PROVIDERS: ADMIT Hospitalist; ATTEND Hospitalist
DX: F14.188 Cocaine abuse with other cocaine-induced disorder (principal); N17.9 Acute kidney failure, unspecified; E11.40 Type 2 diabetes mellitus with diabetic neuropathy, unspecified; D69.6 Thrombocytopenia, unspecified; I16.1 Hypertensive emergency; I20.8 Other forms of angina pectoris; F17.210 Nicotine dependence, cigarettes, uncomplicated; I10 Essential (primary) hypertension; M79.7 Fibromyalgia; N40.0 Benign prostatic hyperplasia without lower urinary tract symptoms; F12.90 Cannabis use, unspecified, uncomplicated; R79.89 Other specified abnormal findings of blood chemistry; R05 Cough; Z79.4 Long term (current) use of insulin
CPT/HCPCS: 70450; 71046; 76775; 78582; 80048; 80053; 80061; 80307; 81001; 82550; 82552; 82570; 82948; 83036; 83935; 84300; 84484; 85007; 85025; 85027; 85379; 85610; 85730; 93005; 96372; 96374; 96375; A9540; A9567; G0378; J0360; J1644; J2060; J2270; J2405; J7030

== ENCOUNTER 2018-03-31 07:35 | Inpatient (IN) ==
[2018-03-31 08:12] LABS: Hematocrit 37.2 % (39.0-51.0); Hemoglobin 12.5 gm/dL (13.0-17.0); Mean Corpuscular HGB Conc 33.5 % (32.0-36.0); Mean Corpuscular Hemoglobin 29.2 pg (27.0-34.0); Mean Corpuscular Volume 87.1 fL (80.0-100.0); Mean Platelet Volume 9.5 fL (7.0-11.0); Platelet Count 111 th/mm3 (150-450); Red Blood Count 4.27 mil/mm3 (4.50-5.90); Red Cell Distribution Width 14.9 % (11.6-17.2); White Blood Count 4.5 th/mm3 (4.0-11.0)
[2018-03-31 08:35] LABS: Albumin 2.2 g/dL (3.4-5.0); Anion Gap 7 meq/L (5-15); Aspartate Aminotransferase 26 U/L (15-37); Blood Urea Nitrogen 30 mg/dL (7-18); Calcium 8.1 mg/dL (8.5-10.1); Carbon Dioxide 25.2 meq/L (21.0-32.0); Chloride 106 meq/L (98-107); Glomerular Filtration Rate 35 mL/min (>89); Glucose,Random 244 mg/dL (74-106); Potassium 3.6 meq/L (3.5-5.1); Sodium 138 meq/L (136-145)
[2018-03-31 08:41] LABS: Alanine Aminotransferase 18 U/L (12-78); Alkaline Phosphatase 83 U/L (45-117); Total Protein 7.1 g/dL (6.4-8.2); Troponin I 0.05 ng/mL (0.02-0.05)
--- NOTE | 2018-03-31 08:58 | ED ---
HPI General Chief Complaint: Chest Pain Stated Complaint: gen weakness Time Seen by Provider: 03/31/18 07:55 Source: patient Mode of arrival: ambulatory Limitations: no limitations History of Present Illness HPI narrative: Patient is a 52-year-old male, past medical history significant for diabetes and neuropathy, who presents with complaint of chest pain that is substernal in nature without radiation. He states that it has started coming on randomly and is intermittent in nature and sometimes occurs with exertion. It does not change with movement. He does have some associated dyspnea but not at this time. No fever nor chills. This has happened before and he states that he was told he had an arrhythmia at that time. No nausea nor vomiting. He does also report left flank pain that is chronic but slightly worse. MD complaint: chest pain STEMI Alert: No Onset (ago): minute(s) Duration: intermittent Onset: during rest Pain location: substernal Severity: moderate Quality: tightness and aching Pain radiation: none Relieving factors: nothing Exacerbating factors: nothing Context: recent illness Associated symptoms: dyspnea Treatments prior to arrival chest pain: none Related Data Home Medications Medication Instructions Recorded Confirmed duloxetine 30 mg PO DAILY 03/31/18 03/31/18 insulin detemir U-100 [Levemir 15 unit SUB-Q BID 03/31/18 03/31/18 U-100 Insulin] pregabalin [Lyrica] 200 mg PO TID 03/31/18 03/31/18 Allergies Allergy/AdvReac Type Severity Reaction Status Date / Time Fish Containing Products Allergy Severe Swelling Verified 03/31/18 07:56 of Lip/Tongue/Throat Review of Systems ROS: all other systems reviewed are negative [facility] Medical History Medical History Cervical radiculopathy due to degenerative joint disease of spine (Acute) Diabetes (Acute) Neuropathy (Acute) Surgical History Surgical History Hx of shoulder surgery (Acute) Social History Social History Substance History: Past History Second Hand Smoke Exposure: Yes Smoking Status: Former smoker Tobacco Type: Cigarettes How Often Do You Have a Drink Containing Alcohol: Monthly or less Recent Travel in [facility] within the Last 8 Weeks: No Recent Out of Country Travel within the Last 8 Weeks: No Substance Abuse Detail Crack/Cocaine: Substance Use Status: Active Substance Frequency: 3 weeks ago Reason for Use: Get High Immunization History Tetanus Immunization: >5 Years Hx Influenza Vaccine This Season: No Exam Narrative Exam Narrative: GENERAL: Well-appearing male in no acute distress SKIN: Focused skin assessment warm/dry. No rashes. HEAD: Atraumatic. Normocephalic. EYES: Pupils equal and round. No scleral icterus. No injection or drainage. ENT: No nasal bleeding or discharge. Mucous membranes pink and moist. NECK: Trachea midline. No JVD. CARDIOVASCULAR: Regular rate and rhythm. No murmur appreciated. Intact and equal peripheral pulses. RESPIRATORY: No accessory muscle use. Clear to auscultation. Breath sounds equal bilaterally. GASTROINTESTINAL: Abdomen soft, non-tender, nondistended. Hepatic and splenic margins not palpable. MUSCULOSKELETAL: No obvious deformities. No clubbing. No cyanosis. No edema. Slight tenderness on palpation of the left paraspinal region NEUROLOGICAL: Awake and alert. No obvious cranial nerve deficits. Motor grossly within normal limits. Normal speech. PSYCHIATRIC: Appropriate mood and affect; insight and judgment normal. Course Initial Documented Vital Signs Temperature 97.6 F 03/31/18 07:35 Pulse Rate 90 03/31/18 07:35 Respiratory Rate 16 03/31/18 07:35 Blood Pressure 139/66 03/31/18 07:35 Pulse Oximetry 99 03/31/18 07:35 Last Documented Vital Signs Temperature 97.9 F 04/03/18 11:33 Pulse Rate 57 L 04/03/18 11:33 Respiratory Rate 18 04/03/18 11:33 Blood Pressure 138/77 04/03/18 11:33 Pulse Oximetry 98 04/03/18 11:33 Clinical Decision Support HEART Score Questions History: Moderately suspicious EKG: Normal Age: 45-64 years Risk Factors: 1-2 Risk Factors Initial Troponin: Normal Limit Heart Score HEART Score: 3 Medical Decision Making MDM Narrative Medical decision making narrative: Patient is a 52-year-old male who presents with complaint of chest pain that has been intermittent and sometimes occurs with exertion. EKG is without acute ischemic changes. His pain was relieved with nitroglycerin. X-ray is unremarkable. Labs revealed baseline chronic kidney disease but have a normal initial troponin. He has been admitted to the chest pain center for observation, serial troponins with EKGs and possible stress test to be determined by the electrical contacts adjuster. Medical Screen Exam Complete: Yes Emergency Medical Condition: Yes Differential Diagnosis Differential Diagnosis: Differential diagnosis includes but is not limited to acute coronary syndrome, pneumonia, pneumothorax, urinary tract infection. Medical Records Medical records reviewed: Yes I reviewed the patient's medical records. Lab Data Lab results reviewed: Yes I reviewed the patient's lab results. Lab results narrative: Labs reveal chronic kidney disease at baseline. Result diagrams: 04/03/18 03:46 04/03/18 03:46 Lab Results 03/31/18 03/31/18 03/31/18 Range/Units 08:02 08:02 09:10 WBC 4.5 (4.0-11.0) th/mm3 RBC 4.27 L (4.50-5.90) mil/mm3 Hgb 12.5 L (13.0-17.0) gm/dL Hct 37.2 L (39.0-51.0) % MCV 87.1 (80.0-100.0) fL MCH 29.2 (27.0-34.0) pg MCHC 33.5 (32.0-36.0) % RDW 14.9 (11.6-17.2) % Plt Count 111 L (150-450) th/mm3 MPV 9.5 (7.0-11.0) fL Prelim Diff (Auto) Neut % (Auto) (16.0-70.0) % Lymph % (Auto) (9.0-44.0) % [place] % (Auto) (0.0-8.0) % Eos % (Auto) (0.0-4.0) % Baso % (Auto) (0.0-2.0) % Neut # (Auto) (1.8-7.7) th/mm3 Lymph # (Auto) (1.0-4.8) th/mm3 [place] # (Auto) (0.0-0.9) th/mm3 Eos # (Auto) (0.0-0.4) th/mm3 Baso # (Auto) (0.0-0.2) th/mm3 WBC Differential Diff Scan Differential Comment Platelet Estimate (Normal) Platelet Morphology (Normal) Spherocytes (None) APTT (24.3-30.1) sec Sodium 138 (136-145) meq/L Potassium 3.6 (3.5-5.1) meq/L Chloride 106 (98-107) meq/L Carbon Dioxide 25.2 (21.0-32.0) meq/L Anion Gap 7 (5-15) meq/L BUN 30 H (7-18) mg/dL Creatinine 2.01 H (0.60-1.30) mg/dL Estimated GFR 35 L (>89) mL/min POC Glucose (68-110) mg/dl Random Glucose 244 H (74-106) mg/dL Calcium 8.1 L (8.5-10.1) mg/dL Total Bilirubin 0.3 (0.2-1.0) mg/dL AST 26 (15-37) U/L ALT 18 (12-78) U/L Alkaline Phosphatase 83 (45-117) U/L Troponin I 0.05 (0.02-0.05) ng/mL Total Protein 7.1 (6.4-8.2) g/dL Albumin 2.2 L (3.4-5.0) g/dL Triglycerides (42-150) mg/dL Cholesterol (120-200) mg/dL LDL Cholesterol, Calc (0-99) mg/dL HDL Cholesterol (40.0-60.0) mg/dL Cholesterol/HDL Ratio Ratio Urine Color Yellow (Yellw/Straw) Urine Clarity Hazy H (Clear) Urine pH 5.0 (5.0-8.5) Ur Specific [place] 1.017 (1.002-1.035) Urine Protein 500 or greater (Neg-Trace) mg/dL Urine Glucose (UA) 50 (Negative) mg/dL Urine Ketones Negative (Negative) mg/dL Urine Occult Blood Moderate H (Negative) Urine Nitrate Negative (Negative) Urine Bilirubin Negative (Negative) Urine Urobilinogen Less than 2 (Less than 2) mg/dL Ur Leukocyte Esterase Negative (Negative) Urine RBC 9 H (0-3) /hpf Urine WBC 2 (0-5) /hpf Ur Squamous Epith Cells <1 (0-5) /hpf Urine Bacteria Occasional H (None) /hpf Hyaline Casts 33 (0-3) /lpf Urine Mucus Few H (Occasional) /lpf Micro UA Comment Culture not ind Ur Microscopic Review Not Reportable Urine Culture Comments Culture not ind Serum Alcohol (0-5) mg/dL Hep Bs Antigen (Nonreactive) 03/31/18 03/31/18 03/31/18 Range/Units 11:20 12:40 14:00 WBC (4.0-11.0) th/mm3 RBC (4.50-5.90) mil/mm3 Hgb (13.0-17.0) gm/dL Hct (39.0-51.0) % MCV (80.0-100.0) fL MCH (27.0-34.0) pg MCHC (32.0-36.0) % RDW (11.6-17.2) % Plt Count (150-450) th/mm3 MPV (7.0-11.0) fL Prelim Diff (Auto) Neut % (Auto) (16.0-70.0) % Lymph % (Auto) (9.0-44.0) % [place] % (Auto) (0.0-8.0) % Eos % (Auto) (0.0-4.0) % Baso % (Auto) (0.0-2.0) % Neut # (Auto) (1.8-7.7) th/mm3 Lymph # (Auto) (1.0-4.8) th/mm3 [place] # (Auto) (0.0-0.9) th/mm3 Eos # (Auto) (0.0-0.4) th/mm3 Baso # (Auto) (0.0-0.2) th/mm3 WBC Differential Diff Scan Differential Comment Platelet Estimate (Normal) Platelet Morphology (Normal) Spherocytes (None) APTT (24.3-30.1) sec Sodium (136-145) meq/L Potassium (3.5-5.1) meq/L Chloride (98-107) meq/L Carbon Dioxide (21.0-32.0) meq/L Anion Gap (5-15) meq/L BUN (7-18) mg/dL Creatinine (0.60-1.30) mg/dL Estimated GFR (>89) mL/min POC Glucose 86 (68-110) mg/dl Random Glucose (74-106) mg/dL Calcium (8.5-10.1) mg/dL Total Bilirubin (0.2-1.0) mg/dL AST (15-37) U/L ALT (12-78) U/L Alkaline Phosphatase (45-117) U/L Troponin I 0.08 H 0.13 H (0.02-0.05) ng/mL Total Protein (6.4-8.2) g/dL Albumin (3.4-5.0) g/dL Triglycerides 204 H (42-150) mg/dL Cholesterol 171 (120-200) mg/dL LDL Cholesterol, Calc 100 H (0-99) mg/dL HDL Cholesterol 30.5 L (40.0-60.0) mg/dL Cholesterol/HDL Ratio 5.60 Ratio Urine Color (Yellw/Straw) Urine Clarity (Clear) Urine pH (5.0-8.5) Ur Specific [place] (1.002-1.035) Urine Protein (Neg-Trace) mg/dL Urine Glucose (UA) (Negative) mg/dL Urine Ketones (Negative) mg/dL Urine Occult Blood (Negative) Urine Nitrate (Negative) Urine Bilirubin (Negative) Urine Urobilinogen (Less than 2) mg/dL Ur Leukocyte Esterase (Negative) Urine RBC (0-3) /hpf Urine WBC (0-5) /hpf Ur Squamous Epith Cells (0-5) /hpf Urine Bacteria (None) /hpf Hyaline Casts (0-3) /lpf Urine Mucus (Occasional) /lpf Micro UA Comment Ur Microscopic Review Urine Culture Comments Serum Alcohol (0-5) mg/dL Hep Bs Antigen (Nonreactive) 03/31/18 04/01/18 04/01/18 Range/Units 14:00 06:45 06:45 WBC 4.0 (4.0-11.0) th/mm3 RBC 4.32 L (4.50-5.90) mil/mm3 Hgb 12.4 L (13.0-17.0) gm/dL Hct 37.7 L (39.0-51.0) % MCV 87.2 (80.0-100.0) fL MCH 28.7 (27.0-34.0) pg MCHC 33.0 (32.0-36.0) % RDW 14.5 (11.6-17.2) % Plt Count 99 L (150-450) th/mm3 MPV 10.3 (7.0-11.0) fL Prelim Diff (Auto) Slide review pending Neut % (Auto) 55.7 (16.0-70.0) % Lymph % (Auto) 32.1 (9.0-44.0) % [place] % (Auto) 7.5 (0.0-8.0) % Eos % (Auto) 3.6 (0.0-4.0) % Baso % (Auto) 1.1 (0.0-2.0) % Neut # (Auto) 2.2 (1.8-7.7) th/mm3 Lymph # (Auto) 1.3 (1.0-4.8) th/mm3 [place] # (Auto) 0.3 (0.0-0.9) th/mm3 Eos # (Auto) 0.1 (0.0-0.4) th/mm3 Baso # (Auto) 0.0 (0.0-0.2) th/mm3 WBC Differential . Diff Scan Auto diff confirmed Differential Comment . Platelet Estimate Low L (Normal) Platelet Morphology Normal (Normal) Spherocytes (None) APTT (24.3-30.1) sec Sodium 144 (136-145) meq/L Potassium 4.0 (3.5-5.1) meq/L Chloride 113 H (98-107) meq/L Carbon Dioxide 23.2 (21.0-32.0) meq/L Anion Gap 8 (5-15) meq/L BUN 33 H (7-18) mg/dL Creatinine 1.62 H (0.60-1.30) mg/dL Estimated GFR 45 L (>89) mL/min POC Glucose (68-110) mg/dl Random Glucose 93 D (74-106) mg/dL Calcium 7.9 L (8.5-10.1) mg/dL Total Bilirubin (0.2-1.0) mg/dL AST (15-37) U/L ALT (12-78) U/L Alkaline Phosphatase (45-117) U/L Troponin I 0.08 H (0.02-0.05) ng/mL Total Protein (6.4-8.2) g/dL Albumin (3.4-5.0) g/dL Triglycerides Cancelled (42-150) mg/dL Cholesterol Cancelled (120-200) mg/dL LDL Cholesterol, Calc Cancelled (0-99) mg/dL HDL Cholesterol Cancelled (40.0-60.0) mg/dL Cholesterol/HDL Ratio Cancelled Ratio Urine Color (Yellw/Straw) Urine Clarity (Clear) Urine pH (5.0-8.5) Ur Specific [place] (1.002-1.035) Urine Protein (Neg-Trace) mg/dL Urine Glucose (UA) (Negative) mg/dL Urine Ketones (Negative) mg/dL Urine Occult Blood (Negative) Urine Nitrate (Negative) Urine Bilirubin (Negative) Urine Urobilinogen (Less than 2) mg/dL Ur Leukocyte Esterase (Negative) Urine RBC (0-3) /hpf Urine WBC (0-5) /hpf Ur Squamous Epith Cells (0-5) /hpf Urine Bacteria (None) /hpf Hyaline Casts (0-3) /lpf Urine Mucus (Occasional) /lpf Micro UA Comment Ur Microscopic Review Urine Culture Comments Serum Alcohol (0-5) mg/dL Hep Bs Antigen (Nonreactive) 04/01/18 04/01/18 04/01/18 Range/Units 08:06 11:53 17:25 WBC (4.0-11.0) th/mm3 RBC (4.50-5.90) mil/mm3 Hgb (13.0-17.0) gm/dL Hct (39.0-51.0) % MCV (80.0-100.0) fL MCH (27.0-34.0) pg MCHC (32.0-36.0) % RDW (11.6-17.2) % Plt Count (150-450) th/mm3 MPV (7.0-11.0) fL Prelim Diff (Auto) Neut % (Auto) (16.0-70.0) % Lymph % (Auto) (9.0-44.0) % [place] % (Auto) (0.0-8.0) % Eos % (Auto) (0.0-4.0) % Baso % (Auto) (0.0-2.0) % Neut # (Auto) (1.8-7.7) th/mm3 Lymph # (Auto) (1.0-4.8) th/mm3 [place] # (Auto) (0.0-0.9) th/mm3 Eos # (Auto) (0.0-0.4) th/mm3 Baso # (Auto) (0.0-0.2) th/mm3 WBC Differential Diff Scan Differential Comment Platelet Estimate (Normal) Platelet Morphology (Normal) Spherocytes (None) APTT (24.3-30.1) sec Sodium (136-145) meq/L Potassium (3.5-5.1) meq/L Chloride (98-107) meq/L Carbon Dioxide (21.0-32.0) meq/L Anion Gap (5-15) meq/L BUN (7-18) mg/dL Creatinine (0.60-1.30) mg/dL Estimated GFR (>89) mL/min POC Glucose 103 102 105 (68-110) mg/dl Random Glucose (74-106) mg/dL Calcium (8.5-10.1) mg/dL Total Bilirubin (0.2-1.0) mg/dL AST (15-37) U/L ALT (12-78) U/L Alkaline Phosphatase (45-117) U/L Troponin I (0.02-0.05) ng/mL Total Protein (6.4-8.2) g/dL Albumin (3.4-5.0) g/dL Triglycerides (42-150) mg/dL Cholesterol (120-200) mg/dL LDL Cholesterol, Calc (0-99) mg/dL HDL Cholesterol (40.0-60.0) mg/dL Cholesterol/HDL Ratio Ratio Urine Color (Yellw/Straw) Urine Clarity (Clear) Urine pH (5.0-8.5) Ur Specific [place] (1.002-1.035) Urine Protein (Neg-Trace) mg/dL Urine Glucose (UA) (Negative) mg/dL Urine Ketones (Negative) mg/dL Urine Occult Blood (Negative) Urine Nitrate (Negative) Urine Bilirubin (Negative) Urine Urobilinogen (Less than 2) mg/dL Ur Leukocyte Esterase (Negative) Urine RBC (0-3) /hpf Urine WBC (0-5) /hpf Ur Squamous Epith Cells (0-5) /hpf Urine Bacteria (None) /hpf Hyaline Casts (0-3) /lpf Urine Mucus (Occasional) /lpf Micro UA Comment Ur Microscopic Review Urine Culture Comments Serum Alcohol (0-5) mg/dL Hep Bs Antigen (Nonreactive) 04/01/18 04/02/18 04/02/18 Range/Units 21:07 06:10 06:10 WBC 3.3 L (4.0-11.0) th/mm3 RBC 4.13 L (4.50-5.90) mil/mm3 Hgb 11.8 L (13.0-17.0) gm/dL Hct 36.1 L (39.0-51.0) % MCV 87.5 (80.0-100.0) fL MCH 28.7 (27.0-34.0) pg MCHC 32.8 (32.0-36.0) % RDW 14.7 (11.6-17.2) % Plt Count 81 L (150-450) th/mm3 MPV 9.6 (7.0-11.0) fL Prelim Diff (Auto) Neut % (Auto) (16.0-70.0) % Lymph % (Auto) (9.0-44.0) % [place] % (Auto) (0.0-8.0) % Eos % (Auto) (0.0-4.0) % Baso % (Auto) (0.0-2.0) % Neut # (Auto) (1.8-7.7) th/mm3 Lymph # (Auto) (1.0-4.8) th/mm3 [place] # (Auto) (0.0-0.9) th/mm3 Eos # (Auto) (0.0-0.4) th/mm3 Baso # (Auto) (0.0-0.2) th/mm3 WBC Differential Diff Scan Differential Comment Platelet Estimate (Normal) Platelet Morphology (Normal) Spherocytes (None) APTT (24.3-30.1) sec Sodium 146 H (136-145) meq/L Potassium 4.0 (3.5-5.1) meq/L Chloride 113 H (98-107) meq/L Carbon Dioxide 24.9 (21.0-32.0) meq/L Anion Gap 8 (5-15) meq/L BUN 31 H (7-18) mg/dL Creatinine 1.69 H (0.60-1.30) mg/dL Estimated GFR 43 L (>89) mL/min POC Glucose 182 H (68-110) mg/dl Random Glucose 95 (74-106) mg/dL Calcium 7.6 L (8.5-10.1) mg/dL Total Bilirubin (0.2-1.0) mg/dL AST (15-37) U/L ALT (12-78) U/L Alkaline Phosphatase (45-117) U/L Troponin I (0.02-0.05) ng/mL Total Protein (6.4-8.2) g/dL Albumin (3.4-5.0) g/dL Triglycerides 118 (42-150) mg/dL Cholesterol 148 (120-200) mg/dL LDL Cholesterol, Calc 97 (0-99) mg/dL HDL Cholesterol 27.5 L (40.0-60.0) mg/dL Cholesterol/HDL Ratio 5.38 Ratio Urine Color (Yellw/Straw) Urine Clarity (Clear) Urine pH (5.0-8.5) Ur Specific [place] (1.002-1.035) Urine Protein (Neg-Trace) mg/dL Urine Glucose (UA) (Negative) mg/dL Urine Ketones (Negative) mg/dL Urine Occult Blood (Negative) Urine Nitrate (Negative) Urine Bilirubin (Negative) Urine Urobilinogen (Less than 2) mg/dL Ur Leukocyte Esterase (Negative) Urine RBC (0-3) /hpf Urine WBC (0-5) /hpf Ur Squamous Epith Cells (0-5) /hpf Urine Bacteria (None) /hpf Hyaline Casts (0-3) /lpf Urine Mucus (Occasional) /lpf Micro UA Comment Ur Microscopic Review Urine Culture Comments Serum Alcohol (0-5) mg/dL Hep Bs Antigen (Nonreactive) 04/02/18 04/02/18 04/02/18 Range/Units 06:10 07:53 12:23 WBC (4.0-11.0) th/mm3 RBC (4.50-5.90) mil/mm3 Hgb (13.0-17.0) gm/dL Hct (39.0-51.0) % MCV (80.0-100.0) fL MCH (27.0-34.0) pg MCHC (32.0-36.0) % RDW (11.6-17.2) % Plt Count (150-450) th/mm3 MPV (7.0-11.0) fL Prelim Diff (Auto) Neut % (Auto) (16.0-70.0) % Lymph % (Auto) (9.0-44.0) % [place] % (Auto) (0.0-8.0) % Eos % (Auto) (0.0-4.0) % Baso % (Auto) (0.0-2.0) % Neut # (Auto) (1.8-7.7) th/mm3 Lymph # (Auto) (1.0-4.8) th/mm3 [place] # (Auto) (0.0-0.9) th/mm3 Eos # (Auto) (0.0-0.4) th/mm3 Baso # (Auto) (0.0-0.2) th/mm3 WBC Differential Diff Scan Differential Comment Platelet Estimate (Normal) Platelet Morphology (Normal) Spherocytes (None) APTT (24.3-30.1) sec Sodium (136-145) meq/L Potassium (3.5-5.1) meq/L Chloride (98-107) meq/L Carbon Dioxide (21.0-32.0) meq/L Anion Gap (5-15) meq/L BUN (7-18) mg/dL Creatinine (0.60-1.30) mg/dL Estimated GFR (>89) mL/min POC Glucose 94 168 H (68-110) mg/dl Random Glucose (74-106) mg/dL Calcium (8.5-10.1) mg/dL Total Bilirubin (0.2-1.0) mg/dL AST (15-37) U/L ALT (12-78) U/L Alkaline Phosphatase (45-117) U/L Troponin I (0.02-0.05) ng/mL Total Protein (6.4-8.2) g/dL Albumin (3.4-5.0) g/dL Triglycerides Cancelled (42-150) mg/dL Cholesterol Cancelled (120-200) mg/dL LDL Cholesterol, Calc Cancelled (0-99) mg/dL HDL Cholesterol Cancelled (40.0-60.0) mg/dL Cholesterol/HDL Ratio Cancelled Ratio Urine Color (Yellw/Straw) Urine Clarity (Clear) Urine pH (5.0-8.5) Ur Specific [place] (1.002-1.035) Urine Protein (Neg-Trace) mg/dL Urine Glucose (UA) (Negative) mg/dL Urine Ketones (Negative) mg/dL Urine Occult Blood (Negative) Urine Nitrate (Negative) Urine Bilirubin (Negative) Urine Urobilinogen (Less than 2) mg/dL Ur Leukocyte Esterase (Negative) Urine RBC (0-3) /hpf Urine WBC (0-5) /hpf Ur Squamous Epith Cells (0-5) /hpf Urine Bacteria (None) /hpf Hyaline Casts (0-3) /lpf Urine Mucus (Occasional) /lpf Micro UA Comment Ur Microscopic Review Urine Culture Comments Serum Alcohol (0-5) mg/dL Hep Bs Antigen (Nonreactive) 04/02/18 04/02/18 04/03/18 Range/Units 17:02 21:43 03:46 WBC 4.1 (4.0-11.0) th/mm3 RBC 3.97 L (4.50-5.90) mil/mm3 Hgb 11.4 L (13.0-17.0) gm/dL Hct 34.8 L (39.0-51.0) % MCV 87.5 (80.0-100.0) fL MCH 28.7 (27.0-34.0) pg MCHC 32.8 (32.0-36.0) % RDW 14.4 (11.6-17.2) % Plt Count 86 L (150-450) th/mm3 MPV 10.3 (7.0-11.0) fL Prelim Diff (Auto) Slide review pending Neut % (Auto) 52.5 (16.0-70.0) % Lymph % (Auto) 34.5 (9.0-44.0) % [place] % (Auto) 8.7 H (0.0-8.0) % Eos % (Auto) 3.9 (0.0-4.0) % Baso % (Auto) 0.4 (0.0-2.0) % Neut # (Auto) 2.1 (1.8-7.7) th/mm3 Lymph # (Auto) 1.4 (1.0-4.8) th/mm3 [place] # (Auto) 0.4 (0.0-0.9) th/mm3 Eos # (Auto) 0.2 (0.0-0.4) th/mm3 Baso # (Auto) 0.0 (0.0-0.2) th/mm3 WBC Differential . Diff Scan Auto diff confirmed Differential Comment . Platelet Estimate Low L (Normal) Platelet Morphology Normal (Normal) Spherocytes 1+ H (None) APTT (24.3-30.1) sec Sodium (136-145) meq/L Potassium (3.5-5.1) meq/L Chloride (98-107) meq/L Carbon Dioxide (21.0-32.0) meq/L Anion Gap (5-15) meq/L BUN (7-18) mg/dL Creatinine (0.60-1.30) mg/dL Estimated GFR (>89) mL/min POC Glucose 123 H 185 H (68-110) mg/dl Random Glucose (74-106) mg/dL Calcium (8.5-10.1) mg/dL Total Bilirubin (0.2-1.0) mg/dL AST (15-37) U/L ALT (12-78) U/L Alkaline Phosphatase (45-117) U/L Troponin I (0.02-0.05) ng/mL Total Protein (6.4-8.2) g/dL Albumin (3.4-5.0) g/dL Triglycerides (42-150) mg/dL Cholesterol (120-200) mg/dL LDL Cholesterol, Calc (0-99) mg/dL HDL Cholesterol (40.0-60.0) mg/dL Cholesterol/HDL Ratio Ratio Urine Color (Yellw/Straw) Urine Clarity (Clear) Urine pH (5.0-8.5) Ur Specific [place] (1.002-1.035) Urine Protein (Neg-Trace) mg/dL Urine Glucose (UA) (Negative) mg/dL Urine Ketones (Negative) mg/dL Urine Occult Blood (Negative) Urine Nitrate (Negative) Urine Bilirubin (Negative) Urine Urobilinogen (Less than 2) mg/dL Ur Leukocyte Esterase (Negative) Urine RBC (0-3) /hpf Urine WBC (0-5) /hpf Ur Squamous Epith Cells (0-5) /hpf Urine Bacteria (None) /hpf Hyaline Casts (0-3) /lpf Urine Mucus (Occasional) /lpf Micro UA Comment Ur Microscopic Review Urine Culture Comments Serum Alcohol (0-5) mg/dL Hep Bs Antigen (Nonreactive) 04/03/18 04/03/18 04/03/18 Range/Units 03:46 08:15 09:09 WBC (4.0-11.0) th/mm3 RBC (4.50-5.90) mil/mm3 Hgb (13.0-17.0) gm/dL Hct (39.0-51.0) % MCV (80.0-100.0) fL MCH (27.0-34.0) pg MCHC (32.0-36.0) % RDW (11.6-17.2) % Plt Count (150-450) th/mm3 MPV (7.0-11.0) fL Prelim Diff (Auto) Neut % (Auto) (16.0-70.0) % Lymph % (Auto) (9.0-44.0) % [place] % (Auto) (0.0-8.0) % Eos % (Auto) (0.0-4.0) % Baso % (Auto) (0.0-2.0) % Neut # (Auto) (1.8-7.7) th/mm3 Lymph # (Auto) (1.0-4.8) th/mm3 [place] # (Auto) (0.0-0.9) th/mm3 Eos # (Auto) (0.0-0.4) th/mm3 Baso # (Auto) (0.0-0.2) th/mm3 WBC Differential Diff Scan Differential Comment Platelet Estimate (Normal) Platelet Morphology (Normal) Spherocytes (None) APTT (24.3-30.1) sec Sodium 144 (136-145) meq/L Potassium 3.9 (3.5-5.1) meq/L Chloride 113 H (98-107) meq/L Carbon Dioxide 23.3 (21.0-32.0) meq/L Anion Gap 8 (5-15) meq/L BUN 30 H (7-18) mg/dL Creatinine 1.39 H (0.60-1.30) mg/dL Estimated GFR 53 L (>89) mL/min POC Glucose 83 (68-110) mg/dl Random Glucose 64 L (74-106) mg/dL Calcium 7.7 L (8.5-10.1) mg/dL Total Bilirubin 0.2 (0.2-1.0) mg/dL AST 27 (15-37) U/L ALT 19 (12-78) U/L Alkaline Phosphatase 77 (45-117) U/L Troponin I (0.02-0.05) ng/mL Total Protein 6.2 L D (6.4-8.2) g/dL Albumin 1.8 L (3.4-5.0) g/dL Triglycerides (42-150) mg/dL Cholesterol (120-200) mg/dL LDL Cholesterol, Calc (0-99) mg/dL HDL Cholesterol (40.0-60.0) mg/dL Cholesterol/HDL Ratio Ratio Urine Color (Yellw/Straw) Urine Clarity (Clear) Urine pH (5.0-8.5) Ur Specific [place] (1.002-1.035) Urine Protein (Neg-Trace) mg/dL Urine Glucose (UA) (Negative) mg/dL Urine Ketones (Negative) mg/dL Urine Occult Blood (Negative) Urine Nitrate (Negative) Urine Bilirubin (Negative) Urine Urobilinogen (Less than 2) mg/dL Ur Leukocyte Esterase (Negative) Urine RBC (0-3) /hpf Urine WBC (0-5) /hpf Ur Squamous Epith Cells (0-5) /hpf Urine Bacteria (None) /hpf Hyaline Casts (0-3) /lpf Urine Mucus (Occasional) /lpf Micro UA Comment Ur Microscopic Review Urine Culture Comments Serum Alcohol Less than 3 (0-5) mg/dL Hep Bs Antigen (Nonreactive) 04/03/18 04/03/18 04/03/18 Range/Units 11:44 13:16 13:16 WBC (4.0-11.0) th/mm3 RBC (4.50-5.90) mil/mm3 Hgb (13.0-17.0) gm/dL Hct (39.0-51.0) % MCV (80.0-100.0) fL MCH (27.0-34.0) pg MCHC (32.0-36.0) % RDW (11.6-17.2) % Plt Count (150-450) th/mm3 MPV (7.0-11.0) fL Prelim Diff (Auto) Neut % (Auto) (16.0-70.0) % Lymph % (Auto) (9.0-44.0) % [place] % (Auto) (0.0-8.0) % Eos % (Auto) (0.0-4.0) % Baso % (Auto) (0.0-2.0) % Neut # (Auto) (1.8-7.7) th/mm3 Lymph # (Auto) (1.0-4.8) th/mm3 [place] # (Auto) (0.0-0.9) th/mm3 Eos # (Auto) (0.0-0.4) th/mm3 Baso # (Auto) (0.0-0.2) th/mm3 WBC Differential Diff Scan Differential Comment Platelet Estimate (Normal) Platelet Morphology (Normal) Spherocytes (None) APTT 29.7 (24.3-30.1) sec Sodium (136-145) meq/L Potassium (3.5-5.1) meq/L Chloride (98-107) meq/L Carbon Dioxide (21.0-32.0) meq/L Anion Gap (5-15) meq/L BUN (7-18) mg/dL Creatinine (0.60-1.30) mg/dL Estimated GFR (>89) mL/min POC Glucose 171 H (68-110) mg/dl Random Glucose (74-106) mg/dL Calcium (8.5-10.1) mg/dL Total Bilirubin (0.2-1.0) mg/dL AST (15-37) U/L ALT (12-78) U/L Alkaline Phosphatase (45-117) U/L Troponin I (0.02-0.05) ng/mL Total Protein (6.4-8.2) g/dL Albumin (3.4-5.0) g/dL Triglycerides (42-150) mg/dL Cholesterol (120-200) mg/dL LDL Cholesterol, Calc (0-99) mg/dL HDL Cholesterol (40.0-60.0) mg/dL Cholesterol/HDL Ratio Ratio Urine Color (Yellw/Straw) Urine Clarity (Clear) Urine pH (5.0-8.5) Ur Specific [place] (1.002-1.035) Urine Protein (Neg-Trace) mg/dL Urine Glucose (UA) (Negative) mg/dL Urine Ketones (Negative) mg/dL Urine Occult Blood (Negative) Urine Nitrate (Negative) Urine Bilirubin (Negative) Urine Urobilinogen (Less than 2) mg/dL Ur Leukocyte Esterase (Negative) Urine RBC (0-3) /hpf Urine WBC (0-5) /hpf Ur Squamous Epith Cells (0-5) /hpf Urine Bacteria (None) /hpf Hyaline Casts (0-3) /lpf Urine Mucus (Occasional) /lpf Micro UA Comment Ur Microscopic Review Urine Culture Comments Serum Alcohol (0-5) mg/dL Hep Bs Antigen Nonreactive (Nonreactive) Imaging Data Attestation: I personally reviewed and interpreted this imaging study as follows : My impression: No acute cardiopulmonary process. Radiologist's impression: Carotid Doppler Study 03/31/18 00:00 CONCLUSION: Atherosclerotic plaque bilaterally without a hemodynamically significant stenosis involving either carotid artery. Antegrade flow involving both vertebral arteries. Chest X-Ray 03/31/18 08:00 CONCLUSION: No acute cardiopulmonary findings. Abdomen/Pelvis CT 04/02/18 00:00 CONCLUSION: 1. Cirrhosis. 2. Probable cyst in the spleen. 3. Atherosclerotic calcifications are seen. 4. Bilateral nonobstructing renal calculi. ECG Data EKG Prior to Arrival: No Attestation: I personally reviewed and interpreted this ECG as follows: (Sinus rhythm at a rate of [address] or T-wave changes.) Discharge Plan Discharge Disposition Patient Disposition: 30 Still Patient Discharge Condition Condition: Stable Discharge Details Diagnosis: Chest pain, rule out acute myocardial infarction Physicians Team ED Provider: Teetee Izaguirre Primary Care Provider: Primary Care Carmen,Roxann Attending Provider: Johnathan Fuentes Other Providers: Johnathan Fuentes ; Azael Reeder ; Asha Christian ; Winifred Gautam Status ED Status: Left Department Discharge Information Discharge Date/Time: 03/31/18 10:30
[2018-03-31 09:20] LABS: Bacteria,Urine Occasional /hpf; Bilirubin,Urine Negative (Negative); Clarity,Urine Hazy (Clear); Color,Urine Yellow (Yellw/Straw); Glucose,Urine (UA) 50 mg/dL (Negative); Hyaline Casts,Urine 33 /lpf (0-3); Leukocyte Esterase,Urine Negative (Negative); Mucus,Urine Few /lpf (Occasional); Nitrite,Urine Negative (Negative); Specific Gravity,Urine 1.017 (1.002-1.035); Squamous Epithelial Cell,Urine <1 /hpf (0-5)
[2018-03-31] MEDS ORDERED: Ketorolac Inj 30 MG/ML (IVP) Vial IV.PUSH ONE (09:29)
[2018-03-31] MEDS ORDERED: Dextrose 50% in Water 50 ML Vial IV.PUSH PRN (10:18)
[2018-03-31 11:48] LABS: Troponin I 0.08 ng/mL (0.02-0.05)
[2018-03-31] MEDS: Insulin NovoLOG Aspart Correctional Sugar Inj SQ SCH ×3 (13:01→22:13)
[2018-03-31 18:23] LABS: Chol/HDL Ratio 5.6 Ratio; HDL Cholesterol 30.5 mg/dL (40.0-60.0)
[2018-03-31] MEDS: Famotidine 20 MG Tablet PO SCH ×2 (18:44→21:57)
[2018-03-31] MEDS: Metoprolol Tartrate 25 MG Tablet PO SCH ×2 (18:44→21:57)
[2018-03-31] MEDS: Sod Chloride 0.9% Inj 1,000 ML IV.CONT SCH (18:45)
[2018-03-31] MEDS: Insulin Detemir Inj 1,000 UNIT/10 ML Vial SQ SCH (21:57)
[2018-03-31] MEDS ORDERED: Zolpidem Tartrate 5 MG Tablet PO ONE (22:23)
[2018-04-01] MEDS: Sod Chloride 0.9% Inj 1,000 ML IV.CONT SCH ×2 (06:07→17:56)
[2018-04-01 07:18] LABS: Baso % (Auto) 1.1 % (0.0-2.0); Eos # (Auto) 0.1 th/mm3 (0.0-0.4); Eos % (Auto) 3.6 % (0.0-4.0); Hematocrit 37.7 % (39.0-51.0); Hemoglobin 12.4 gm/dL (13.0-17.0); Lymph # (Auto) 1.3 th/mm3 (1.0-4.8); Lymph % (Auto) 32.1 % (9.0-44.0); Mean Corpuscular Hemoglobin 28.7 pg (27.0-34.0); Mean Corpuscular Volume 87.2 fL (80.0-100.0); Mean Platelet Volume 10.3 fL (7.0-11.0); Mono # (Auto) 0.3 th/mm3 (0.0-0.9); Mono % (Auto) 7.5 % (0.0-8.0); Neut # (Auto) 2.2 th/mm3 (1.8-7.7); Neut % (Auto) 55.7 % (16.0-70.0); Platelet Count 99 th/mm3 (150-450); Red Blood Count 4.32 mil/mm3 (4.50-5.90); Red Cell Distribution Width 14.5 % (11.6-17.2)
[2018-04-01 07:52] LABS: Calcium 7.9 mg/dL (8.5-10.1); Carbon Dioxide 23.2 meq/L (21.0-32.0); Troponin I 0.08 ng/mL (0.02-0.05)
[2018-04-01] MEDS: Famotidine 20 MG Tablet PO SCH ×2 (08:53→21:10)
[2018-04-01] MEDS: Metoprolol Tartrate 25 MG Tablet PO SCH (08:54)
[2018-04-01] MEDS: Insulin Detemir Inj 1,000 UNIT/10 ML Vial SQ SCH ×2 (08:54→21:21)
[2018-04-01] MEDS: Insulin NovoLOG Aspart Correctional Sugar Inj SQ SCH ×4 (08:55→21:11)
[2018-04-01 09:22] LABS: Platelet Morphology Normal (Normal)
[2018-04-01] MEDS ORDERED: amLODIPine 5 MG Tablet PO SCH (10:15)
--- NOTE | 2018-04-01 10:30 | ECG ---
Date Performed: 03/31/2018 Time Performed: 14:39:44 PTAGE: 52 years EKG: SINUS BRADYCARDIA BORDERLINE ECG PREVIOUS TRACING : 03/31/2018 11.22 Since previous tracing, no significant change noted DOCTOR: Griffin Shearer Interpretating Date/Time 04/01/2018 10:29:44
--- NOTE | 2018-04-01 12:44 | ECHRPT ---
Indication: CHEST PAIN CONCLUSIONS The left ventricular systolic function is normal with an estimated ejection fraction in the range of 60-65%. Normal left ventricular size. Wall thickness is normal. No regional wall motion abnormalities are present. Trace mitral valve regurgitation. There is trace tricuspid valve regurgitation. The estimated pulmonary arterial pressure is 38.1 mmHg. BP: / HR: Rhythm: Sinus MEASUREMENTS (Male / Female) Normal Values Technical Quality:Excellent 2D ECHO LV Diastolic Diameter PLAX 5.3 cm 4.2 - 5.9 / 3.9 - 5.3 cm LV Systolic Diameter PLAX 3.7 cm IVS Diastolic Thickness 1.0 cm 0.6 - 1.0 / 0.6 - 0.9 cm LVPW Diastolic Thickness 1.0 cm 0.6 - 1.0 / 0.6 - 0.9 cm LV Relative Wall Thickness 0.4 RV Internal Dim ED PLAX 2.6 cm LVOT Diameter 2.0 cm LA Systolic Diameter LX 3.9 cm 3.0 - 4.0 / 2.7 - 3.8 cm LV Ejection Fraction MOD 4C 62.1 % LV Ejection Fraction 4C AL 65.3 % M-MODE Aortic Root Diameter MM 2.2 cm LA Systolic Diameter MM 3.9 cm LA Ao Ratio MM 1.8 AV Cusp Separation MM 1.9 cm DOPPLER AV Peak Velocity 84.2 cm/s AV Peak Gradient 2.8 mmHg LVOT Peak Velocity 68.1 cm/s LVOT Peak Gradient 1.9 mmHg AV Area Cont Eq pk 2.5 cm MV Area PHT 1.8 cm Mitral E Point Velocity 56.3 cm/s Mitral A Point Velocity 67.6 cm/s Mitral E to A Ratio 0.8 TR Peak Velocity 265.0 cm/s TR Peak Gradient 28.1 mmHg Right Atrial Pressure 10.0 mmHg Pulmonary Artery Systolic Pressu 38.1 mmHg Right Ventricular Systolic Press 38.1 mmHg PV Peak Velocity 65.2 cm/s PV Peak Gradient 1.7 mmHg FINDINGS LEFT VENTRICLE The left ventricular systolic function is normal with an estimated ejection fraction in the range of 60-65%. Normal left ventricular size. Wall thickness is normal. No regional wall motion abnormalities are present. RIGHT VENTRICLE Normal right ventricular size and systolic function. LEFT ATRIUM The left atrial size is normal. RIGHT ATRIUM The right atrial size is normal. ATRIAL SEPTUM Normal atrial septal thickness without atrial level shunting by limited color doppler interrogation. AORTA The aortic root and proximal ascending aorta are normal in size on limited imaging. MITRAL VALVE Structurally normal mitral valve. Trace mitral valve regurgitation. AORTIC VALVE Trileaflet aortic valve. No aortic valve stenosis or regurgitation. TRICUSPID VALVE Structurally normal tricuspid valve. There is trace tricuspid valve regurgitation. The estimated pulmonary arterial pressure is 38.1 mmHg. PULMONARY VALVE No pulmonary valve regurgitation or stenosis. VESSELS The inferior vena cava is normal in size. PERICARDIUM No pericardial effusion. Irma Griffin MD (Electronically Signed) Final Date:01 April 2018 12:43
[2018-04-01] MEDS: LORazepam 0.5 MG Tablet PO PRN (13:30)
[2018-04-01] MEDS ORDERED: Carvedilol 6.25 MG Tablet PO ONE (14:15)
[2018-04-01] MEDS ORDERED: amLODIPine 5 MG Tablet PO ONE (14:15)
[2018-04-01] MEDS ORDERED: Carvedilol 6.25 MG Tablet PO SCH (21:00)
[2018-04-01] MEDS: Carvedilol 12.5 MG Tablet PO SCH (21:10)
[2018-04-01] MEDS ORDERED: Zolpidem Tartrate 5 MG Tablet PO ONE (22:00)
--- NOTE | 2018-04-01 22:24 | ECG ---
Date Performed: 03/31/2018 Time Performed: 11:22:28 PTAGE: 52 years EKG: SINUS BRADYCARDIA NONSPECIFIC T-WAVE ABNORMALITY PROLONGED QT INTERVAL ABNORMAL ECG PREVIOUS TRACING : 03/31/2018 07.55 DOCTOR: Irma Griffin Interpretating Date/Time 04/01/2018 22:15:07
--- NOTE | 2018-04-01 22:30 | ECG ---
Date Performed: 03/31/2018 Time Performed: 07:55:28 PTAGE: 52 years EKG: Sinus rhythm NORMAL ECG NO PREVIOUS TRACING DOCTOR: Irma Griffin Interpretating Date/Time 04/01/2018 22:22:48
[2018-04-02] MEDS: Sod Chloride 0.9% Inj 1,000 ML IV.CONT SCH ×2 (06:16→18:07)
[2018-04-02 06:54] LABS: Hematocrit 36.1 % (39.0-51.0); Hemoglobin 11.8 gm/dL (13.0-17.0); Mean Corpuscular HGB Conc 32.8 % (32.0-36.0); Mean Corpuscular Hemoglobin 28.7 pg (27.0-34.0); Mean Corpuscular Volume 87.5 fL (80.0-100.0); Mean Platelet Volume 9.6 fL (7.0-11.0); Platelet Count 81 th/mm3 (150-450); Red Blood Count 4.13 mil/mm3 (4.50-5.90); Red Cell Distribution Width 14.7 % (11.6-17.2); White Blood Count 3.3 th/mm3 (4.0-11.0)
[2018-04-02 07:16] LABS: Calcium 7.6 mg/dL (8.5-10.1); Carbon Dioxide 24.9 meq/L (21.0-32.0)
[2018-04-02] MEDS: Insulin NovoLOG Aspart Correctional Sugar Inj SQ SCH ×4 (08:20→21:51)
[2018-04-02] MEDS: Insulin Detemir Inj 1,000 UNIT/10 ML Vial SQ SCH ×2 (08:21→20:41)
[2018-04-02] MEDS: Carvedilol 12.5 MG Tablet PO SCH ×2 (08:22→20:40)
[2018-04-02] MEDS: amLODIPine 10 MG Tablet PO SCH (08:22)
[2018-04-02] MEDS: Famotidine 20 MG Tablet PO SCH ×2 (08:22→20:40)
[2018-04-02] MEDS ORDERED: diazePAM 5 MG Tablet PO SCH (09:45)
[2018-04-02 09:53] LABS: Chol/HDL Ratio 5.38 Ratio; HDL Cholesterol 27.5 mg/dL (40.0-60.0)
[2018-04-03 04:32] LABS: Baso % (Auto) 0.4 % (0.0-2.0); Eos # (Auto) 0.2 th/mm3 (0.0-0.4); Eos % (Auto) 3.9 % (0.0-4.0); Hematocrit 34.8 % (39.0-51.0); Hemoglobin 11.4 gm/dL (13.0-17.0); Lymph # (Auto) 1.4 th/mm3 (1.0-4.8); Lymph % (Auto) 34.5 % (9.0-44.0); Mean Corpuscular HGB Conc 32.8 % (32.0-36.0); Mean Corpuscular Hemoglobin 28.7 pg (27.0-34.0); Mean Corpuscular Volume 87.5 fL (80.0-100.0); Mean Platelet Volume 10.3 fL (7.0-11.0); Mono # (Auto) 0.4 th/mm3 (0.0-0.9); Mono % (Auto) 8.7 % (0.0-8.0); Neut # (Auto) 2.1 th/mm3 (1.8-7.7); Neut % (Auto) 52.5 % (16.0-70.0); Platelet Count 86 th/mm3 (150-450); Red Blood Count 3.97 mil/mm3 (4.50-5.90); Red Cell Distribution Width 14.4 % (11.6-17.2); White Blood Count 4.1 th/mm3 (4.0-11.0)
[2018-04-03] MEDS ORDERED: Metoprolol Tartrate 25 MG Tablet PO SCH (05:00)
[2018-04-03 05:02] LABS: Albumin 1.8 g/dL (3.4-5.0); Anion Gap 8 meq/L (5-15); Aspartate Aminotransferase 27 U/L (15-37); Blood Urea Nitrogen 30 mg/dL (7-18); Calcium 7.7 mg/dL (8.5-10.1); Carbon Dioxide 23.3 meq/L (21.0-32.0); Chloride 113 meq/L (98-107); Glomerular Filtration Rate 53 mL/min (>89); Glucose,Random 64 mg/dL (74-106); Potassium 3.9 meq/L (3.5-5.1); Sodium 144 meq/L (136-145)
[2018-04-03 05:04] LABS: Alanine Aminotransferase 19 U/L (12-78)
[2018-04-03 05:05] LABS: Alkaline Phosphatase 77 U/L (45-117); Total Protein 6.2 g/dL (6.4-8.2)
[2018-04-03 05:43] LABS: Platelet Morphology Normal (Normal); Spherocytes 1+
[2018-04-03] MEDS: Sod Chloride 0.9% Inj 1,000 ML IV.CONT SCH ×5 (06:12→20:48)
[2018-04-03] MEDS ORDERED: Heparin/NS PF Inj 1,500 ML ONE (06:45)
[2018-04-03] MEDS ORDERED: Heparin 10,000 UNITS/10 ML Vial (for IV use) ONE (07:17)
[2018-04-03] MEDS ORDERED: fentaNYL Citrate Inj 100 MCG/2 ML Ampul ONE (07:17)
[2018-04-03] MEDS ORDERED: Misc Info for Pharmacy OTHER ONE (08:43)
--- NOTE | 2018-04-03 08:43 | CATHPROC ---
[employer] HIS Report Study Information Study Number Admission Scheduled Start Study Start [id number] Mar 31 2018 9:48AM 04/03/2018 Apr 03 2018 6:56AM [place] Service Cath Endovascular Study Admit Source Facility Department Emergency department [facility] - Supervisor [employer] Physician and Clinical Staff Initial Azael Crisostomo Steamfitter Supervisor Yahir Martines RN Steamfitter Supervisor Yoan VIEIRA, Kenneth Recorder Kayla, Elyse,LANGUAGE TRANSLATOR TECH2 Scrub Anny Viveros,RT(R) Procedures Performed Procedure Location (Site) Vessel Name Coronary Angiograms LCA Left Coronary Coronary Angiograms RCA Right Coronary L Heart Cath Equipment Time Bobbin Winder Tender Description Size Mfg Part Number Used/Scraped TRANSDUCER, TRUWAVE [id number] 07:14 RODRIGUEZ JONES * Used W/STOCKCOCK *[id number] *[id number] 07:14 MALLINCKRODT SYRINGE, ANGIOMAT 150ML 150ML *[id number] Used 2SUB [id number] 07:14 [employer] BLANKET,WARM AIR CCL * Used *[id number] 07:14 [employer] PACK, CCL CUSTOM * Used *[id number] 07:14 [employer] SUPPORT, ARTERIAL ADULT [id number] *[id number] Used [id number] 07:14 [employer] PACER PEN, SKIN DUAL W/ RULER * Used *[id number] BAND, RADIAL COMPRESSION TR [id number] 08:15 [employer] 24CM Used SHORT 24 *[id number] 08:00 Spotted SHEATH, FR6.5 PRELUDE 11CM FR 6.5 038ACT Used *[id number] 08:00 [employer] WIRE, 3MMJ .035 180CM 180CM Used *[id number] 07:14 [employer] WIRE, EXCHANGE 260CM 3MMJ 260CM Used *[id number] 07:14 NAMIC MANIFOLD, 4 PORT * Used *[id number] 07:14 [employer] OMNIPAQUE, 350 MG, 100ML 100ML [id number] Used 07:14 Paradial JELCO NEEDLE 4056 *[id number] Used CATHETER, FR5 OPTITORQUE [id number] 07:45 [employer] FR 5 Used RADIAL TIG 4.0 *[id number] SHEATH, FR6 TRANSRADIAL [id number] 07:14 [employer] FR 6 Used SLENDER 10CM *[id number] History: Allergies Allergy Reaction Fish Containing Products Swelling of Lip/Tongue/Throat History: Risk Factors Family History of Hypertension Dyslipidemia Previous RI Previous Heart Failure Premature CAD Yes No No No No Prior Valve Prior PCI Prior CABG Surgery No No No Cerebrovascular Peripheral Artery Chronic Lung On Dialysis Diabetes Diabetes Therapy Disease Disease Disease No No No No Yes Insulin History: Risk Factors Selection Items Current Smoker History: Symptoms/Diagnosis Selection Items Chest pain History: Stress Tests Stress or Imaging Studies Performed No History: Other Current Smoker Method Packs a Day Years Used Pack Years No Cigarettes 1 35 35 Labs Hgb (g/dl) Hct (%) WBC (l/cumm) Platelets (thousands) 11.60-17.00 35.00-51.00 4.00-11.00 150.00-450.00 11.4 34.8 4.1 86 Glucose (mg/dl) BUN (mg/dl) Creatinine (mg/dl) BUN:Creatinine (1:x) 74.00-106.00 7.00-18.00 0.50-1.30 10.00-20.00 64 30 1.3 23.1 Na (meq/l) K (meq/l) Cl (meq/l) CO2 (mmol/L) 136.00-145.00 3.50-5.10 98.00-107.00 21.00-32.00 144 3.9 113 23.3 Troponin I (ng/ml) CPK-MB (ng/ML) 0.02-0.05 0.50-3.60 0.08 Not Drawn Medication Medication Total Dose (Bolus/Oral) Medication Total Dosage/Unit 1% XYLOCAINE 5 mL FENTANYL 50 mcg RADIAL COCKTAIL 5 mL (Bolus) VERSED 2 mg Medications (Bolus/Oral) Medication Time Given Dosage/Unit Administered By Reason VERSED 04/03/2018 7:37:54 AM 1 mg Conrad, Yahir 1 mg VERSED given in lab by Yahir Martines RN in Right Antecubital via Peripheral IV. Ordered by Azael Hernandez. FENTANYL 04/03/2018 7:38:15 AM 50 mcg Conrad, Yahir 50 mcg FENTANYL given in lab by Yahir Martines RN in Right Antecubital via Peripheral IV. Ordered by Azael Upton. VERSED 04/03/2018 7:39:23 AM 1 mg Conrad, Yahir 1 mg VERSED given in lab by Yahir Martines RN in Right Antecubital via Peripheral IV. Ordered by Azael Hernandez. 1% XYLOCAINE 04/03/2018 7:39:56 AM 5 mL Kenneth Milton RN 5 mL 1% XYLOCAINE given in lab by Kenneth Milton RN in Right Radial via Subcutaneous. Ordered by Azael Reeder. Ntg 200mcg Verapamil 2.5mg Heparin RADIAL COCKTAIL 04/03/2018 7:44:35 AM 5 mL (Bolus) Azael Reeder 2500U 5 mL (Bolus) RADIAL COCKTAIL given in lab by Azael Reeder in Right Radial via Radial. Using [Solutio n Name]. Ordered by Azael Reeder. Reason: Ntg 200mcg Verapamil 2.5mg Heparin 2500U. Medication (Drip) Medication Time Given Dosage/Unit Concentration/Unit Diluent (ml) Solution IV Solutions 04/03/2018 7:20:15 AM 0 mL (IV) 500 NaCl .9 IV Solutions given in lab by Kenneth Milton RN in Right Antecubital via Peripheral IV. Pump/Drip Flow = 20 ml/hr using NaCl .9. Ordered by Azael Reeder. IV Solutions 04/03/2018 7:23:42 AM 0 mL (IV) 1000 NaCl .9 IV Solutions given in lab by Kenneth Milton RN in Right Antecubital via Peripheral IV. Pump/Drip Flow = 20 ml/hr using NaCl .9. Ordered by Azael Reeder. Initial Case Assessment Cardiovascular HR NIBP 63 209/96 Edema Present Skin color Skin None Normal Warm Dry Circulatory - Right Pulses Dorsalis Pedis Femoral Radial 2 3 3 Scale (0,1,2,3,4,d) Scale (0,1,2,3,4,d) Neurological State Oriented to time-place- Alert Moves all extremities person Respiration - General Respiration Rate SpO2 (%) (B/min) 10 99 Final Case Assessment Cardiovascular HR Rhythm NIBP Chest Pain 59 sr 153/78 0 Circulatory - Right Pulses Dorsalis Pedis Femoral Radial 2 3 3 Scale (0,1,2,3,4,d) Scale (0,1,2,3,4,d) Neurological State Oriented to time-place- Alert Moves all extremities person Respiration - General Respiration Rate SpO2 (%) (B/min) 14 96 Chronological Log Time Study Chronological Log 7:11:06 Patient arrived via Bed. 7:11:08 Patient Name, D.O.B, / Armband Verified By R.N. 7:11:09 Consent signed by the physician and the patient and verified by the Supervisor [employer] staff. 7:11:10 Pre-op and post- op instructions given; patient acknowledges understanding of instructions. 7:14:24 Verbal Stimulation=2 Physical Stimulation=2 Airway=2 Respiration=2 TOTAL=8. (0=absent, 1=li mited, 2=present) 7:14:36 Presedation assessment performed by Supervisor [employer] RN. 7:14:40 Allens test performed on the right radial and ulnar artery. 7:14:42 Patient has been NPO for More than 6Hrs. 7:14:43 NO Skin Breakdown-none 7:14:45 Sen Prominences Protected 7:14:47 A # 20 IV was noted in the Antecubital (left). Grade = 0 Leaks 7:14:49 History and physical on the chart or being dictated. Vitals capture started with the following parameters, Patient=Adult, Interval=5 min, Initial Pre zllqd=459 mmHg, 7:18:05 Deflation Rate=5 mmHg, Cuff placed on Left Arm 7:19:24 HR=63 bpm, PMCE=706/96 mmhg, SpO2=99.0 %, Resp=10 B/min, Pain=0, Richard=10, Zamora=2 7:20:00 A # 18 IV was noted in the Antecubital (right). Grade = 0 IV Solutions given in lab by Kenneth Milton RN in Right Antecubital via Peripheral IV. Pump/Drip F low = 20 ml/hr using 7:20:15 NaCl .9. Ordered by Azael Reeder. Assessment: Initial Case, HR=63 BPM, XCWM=746/96 mmhg, Edema=None, Color=Normal, Skin = Warm, Dr y Right Pulses: Eb Ped=2, Femoral=3, Radial=3 7:20:46 Neurological: State=Alert, Ox3, LYON Respiration: Resp=10 B/min, SpO2=99 % 7:21:29 Reference ECG taken 7:22:45 History and physical on the chart or being dictated. 7:23:40 A # 18 IV was started in the Antecubital (right). Grade = 0 IV Solutions given in lab by Kenneth Milton RN in Right Antecubital via Peripheral IV. Pump/Drip F low = 20 ml/hr using 7:23:42 NaCl .9. Ordered by Azael Reeder. 7:23:59 HR=59 bpm, UOPC=305/103 mmhg, SpO2=98.0 %, Resp=18 B/min 7:29:00 HR=60 bpm, PXEX=432/98 mmhg, SpO2=98.0 %, Resp=16 B/min 7:31:19 MD arrived. 7:31:51 Right groin and right wrist prepped with 2% chlorhexidine, and draped after a 3 min. waiting time. 7:33:59 HR=59 bpm, WRCP=380/97 mmhg, SpO2=98.0 %, Resp=15 B/min 7:34:17 Pressure channel 1 zeroed. Time Out. Correct patient, correct procedure, correct physician, labs, allergies, and equipment verified with engineering lab technician 7:36:28 team present. Fire risk assesment completed (see hard stop sheet for coding). Time Out Concu rred by MD and individual staff in procedure. 7:37:54 1 mg VERSED given in lab by Yahir Martines RN in Right Antecubital via Peripheral IV. Ordered by Azael Reeder. 7:38:15 50 mcg FENTANYL given in lab by Yahir Martines RN in Right Antecubital via Peripheral IV. Ord ered by Azael Reeder. 7:38:56 HR=60 bpm, ACXE=361/100 mmhg, SpO2=97.0 %, Resp=26 B/min 7:39:23 1 mg VERSED given in lab by Yahir Martines RN in Right Antecubital via Peripheral IV. Ordered by Azael Reeder. 7:39:54 Case Start 7:39:56 5 mL 1% XYLOCAINE given in lab by Kenneht Milton RN in Right Radial via Subcutaneous. Ordered by Azael Reeder. 7:43:51 HR=60 bpm, BCUZ=096/71 mmhg, SpO2=96.0 %, Resp=16 B/min 7:44:12 Access site was Right Radial Artery . A SHEATH, FR6 TRANSRADIAL SLENDER 10CM FR 6 was advanced into the Radial (right) using the Vianey caldera 7:44:14 technique. 5 mL (Bolus) RADIAL COCKTAIL given in lab by Azael Reeder in Right Radial via Radial. Using [So lution Name]. 7:44:35 Ordered by Azael Reeder. Reason: Ntg 200mcg Verapamil 2.5mg Heparin 2500U. A CATHETER, FR5 OPTITORQUE RADIAL TIG 4.0 FR 5 was advanced over a wire. OMNIPAQUE, 350 MG, 100M L 100ML 7:44:39 was used for injections. Recorded Pressure: Ao, Ao, HR=61, Condition=Condition 1 7:45:50 (Aorta) Ao 99/53/70, (Aorta) Ao 0/0/0 7:46:36 The LCA was injected and visualized at various angles. OMNIPAQUE, 350 MG, 100ML 100ML used . 7:48:46 HR=62 bpm, VYJH=413/73 mmhg, SpO2=91.0 %, Resp=14 B/min 7:51:43 The RCA was injected and visualized at various angles. OMNIPAQUE, 350 MG, 100ML 100ML used . 7:53:47 HR=61 bpm, WQKD=051/78 mmhg, SpO2=92.0 %, Resp=13 B/min 7:58:52 HR=57 bpm, HTMS=028/70 mmhg, SpO2=93.0 %, Resp=18 B/min 8:03:51 HR=60 bpm, JFOO=331/75 mmhg, SpO2=95.0 %, Resp=16 B/min After removing the current catheter a PIGTAIL ANG. INFINITI CATHETER FR 5 was advanced over a W JUANPABLO, EXCHANGE 8:07:02 260CM 3MMJ 260CM. 8:08:50 HR=58 bpm, XFVP=814/78 mmhg, SpO2=94.0 %, Resp=12 B/min Recorded Pressure: LV, HR=59, Condition=Condition 1 8:10:08 (Left Ventricle) LV 150/5/11 Recorded Pressure: LV, Ao, HR=59, Condition=Condition 1 8:10:29 (Left Ventricle) LV 148/6/9, (Aorta) Ao 147/64/94 8:10:59 Catheter was removed 8:11:22 Case End (Physician broke scrub) Assessment: Final Case, HR=59 BPM, Rhythm=sr, AWWD=341/78 mmhg, Chest Pain=0 Right Pulses: Eb Ped=2, Femoral=3, Radial=3 8:11:29 Neurological: State=Alert, Ox3, LYON Respiration: Resp=14 B/min, SpO2=96 % 8:12:38 Blood drawn for blood alcohol level. 8:13:51 HR=58 bpm, FMJS=028/86 mmhg, SpO2=95.0 %, Resp=14 B/min Radial Compression Device Used. 13 mLs of air placed in BAND, RADIAL COMPRESSION TR SHORT 24 24 CM. Affected 8:14:46 hand 94 % O2 saturation. 8:15:14 No case complications noted. 8:15:14 Cine recording checked. 8:15:16 Bedside Report will be given. 8:18:20 A Left Heart Cath was performed. 8:18:56 HR=59 bpm, ADMR=750/89 mmhg, SpO2=95.0 %, Resp=14 B/min 8:23:21 Vitals capture stopped. 8:23:46 Patient moved to stretcher 8:25:29 Patient transported to DOCU. End Study - Contrast Media Used In Study Contrast Total Opened (mL) Total Used (mL) Total Wasted (mL) Omnipaque 65 65 0 End Study - Maximum Contrast Load Max Contrast Load (mL) 297.2 End Study - Radiation Exposure Fluoro Time (minutes) 3.9 End Study - Sheaths Sheaths Pulled By Sheath Hold Time (min) Anny Viveros End Study - Patient Disposition Complications Transferred To Interventional Outcome No Telemetry Bed No attempt made
[2018-04-03] MEDS ORDERED: Iohexol 350 MG/ML 100 ML Vial (for Cath Lab) IVCONTRAST ONE (08:49)
[2018-04-03] MEDS: Insulin NovoLOG Aspart Correctional Sugar Inj SQ SCH ×4 (09:00→21:40)
[2018-04-03] MEDS: amLODIPine 10 MG Tablet PO SCH (09:12)
[2018-04-03] MEDS: Carvedilol 12.5 MG Tablet PO SCH ×2 (09:12→21:37)
[2018-04-03] MEDS: Famotidine 20 MG Tablet PO SCH ×2 (09:12→21:36)
[2018-04-03] MEDS: Insulin Detemir Inj 1,000 UNIT/10 ML Vial SQ SCH ×2 (09:13→21:56)
[2018-04-03] MEDS ORDERED: Insulin Regular (For Infusion) 100 UNIT in Sodium Chlor 0.9% Inj 99 ML IV.CONT PRN (11:28)
[2018-04-03] MEDS ORDERED: Dextrose 50% in Water 50 ML Vial IV.PUSH PRN (11:28)
[2018-04-03] MEDS ORDERED: Chlorhexidine 4% Topical 120 APPLIC/120 ML Bottle TOPICAL SCH (11:30)
[2018-04-03] MEDS ORDERED: Sodium Chlor 0.9% Inj 77.5 ML, Papaverine Inj 60 MG, Nitroglycerin Inj 100 MCG, dilTIAZ... IRRIGATION SCH ×3 (11:30)
[2018-04-03] MEDS ORDERED: Sodium Chloride 0.9% Irr Bot 500 ML, ceFAZolin Inj 500 MG IRRIGATION SCH ×2 (11:30)
[2018-04-03] MEDS ORDERED: ceFAZolin 2 GM Premix Inj 2 GM/100 ML BAG IV.SIG SCH (11:53)
[2018-04-03] MEDS: Chlorhexidine Gluconate 0.12% Liq 15 ML UDC SWISH-SPIT SCH ×2 (13:06→17:52)
[2018-04-03 14:35] LABS: Hepatitits B Surface Antigen Nonreactive (Nonreactive)
[2018-04-03 15:18] LABS: Hepatitis A IgM Antibody Nonreactive (Nonreactive)
[2018-04-03 15:55] LABS: Hemoglobin A1c 6.3 % (4.3-6.0)
[2018-04-03] MEDS: Temazepam 15 MG Capsule PO PRN (21:56)
[2018-04-04 00:19] LABS: % Iron Saturation 21.9 % (20-50)
[2018-04-04 00:21] LABS: INR 1.1 Ratio; Prothrombin Time 11.4 sec (9.8-11.6)
[2018-04-04 00:44] LABS: Folate 5.3 ng/mL (3.1-17.5)
[2018-04-04] MEDS: Sod Chloride 0.9% Inj 1,000 ML IV.CONT SCH ×3 (06:03→21:44)
[2018-04-04 06:50] LABS: Baso % (Auto) 0.5 % (0.0-2.0); Eos # (Auto) 0.1 th/mm3 (0.0-0.4); Eos % (Auto) 4.7 % (0.0-4.0); Hematocrit 33.9 % (39.0-51.0); Hemoglobin 11.2 gm/dL (13.0-17.0); Lymph # (Auto) 1.1 th/mm3 (1.0-4.8); Lymph % (Auto) 34.8 % (9.0-44.0); Mean Corpuscular HGB Conc 33.2 % (32.0-36.0); Mean Corpuscular Hemoglobin 28.9 pg (27.0-34.0); Mean Corpuscular Volume 87.1 fL (80.0-100.0); Mean Platelet Volume 10.4 fL (7.0-11.0); Mono # (Auto) 0.2 th/mm3 (0.0-0.9); Neut # (Auto) 1.6 th/mm3 (1.8-7.7); Platelet Count 79 th/mm3 (150-450); Red Blood Count 3.89 mil/mm3 (4.50-5.90); Red Cell Distribution Width 14.7 % (11.6-17.2)
[2018-04-04 07:05] LABS: Calcium 7.8 mg/dL (8.5-10.1); Carbon Dioxide 26.4 meq/L (21.0-32.0); Potassium 3.9 meq/L (3.5-5.1)
[2018-04-04 07:42] LABS: Spherocytes 1+
[2018-04-04 07:43] LABS: Platelet Morphology Normal (Normal)
[2018-04-04] MEDS: Famotidine 20 MG Tablet PO SCH ×2 (08:23→21:39)
[2018-04-04] MEDS: amLODIPine 10 MG Tablet PO SCH (08:23)
[2018-04-04] MEDS: Insulin Detemir Inj 1,000 UNIT/10 ML Vial SQ SCH ×2 (08:23→21:40)
[2018-04-04] MEDS: Carvedilol 12.5 MG Tablet PO SCH ×2 (08:24→21:39)
[2018-04-04] MEDS: Insulin NovoLOG Aspart Correctional Sugar Inj SQ SCH ×4 (08:26→21:40)
[2018-04-04] MEDS: Chlorhexidine Gluconate 0.12% Liq 15 ML UDC SWISH-SPIT SCH ×3 (11:47→18:14)
[2018-04-04] MEDS: LORazepam 0.5 MG Tablet PO PRN (21:39)
[2018-04-04] MEDS: Temazepam 15 MG Capsule PO PRN (21:39)
[2018-04-05] MEDS: Sod Chloride 0.9% Inj 1,000 ML IV.CONT SCH ×2 (04:15→16:58)
[2018-04-05 04:24] LABS: Baso % (Auto) 0.5 % (0.0-2.0); Eos # (Auto) 0.2 th/mm3 (0.0-0.4); Eos % (Auto) 4.8 % (0.0-4.0); Hematocrit 33.7 % (39.0-51.0); Hemoglobin 11.1 gm/dL (13.0-17.0); Lymph % (Auto) 31.4 % (9.0-44.0); Mean Corpuscular HGB Conc 32.9 % (32.0-36.0); Mean Corpuscular Hemoglobin 28.7 pg (27.0-34.0); Mean Corpuscular Volume 87.2 fL (80.0-100.0); Mean Platelet Volume 10.1 fL (7.0-11.0); Mono # (Auto) 0.3 th/mm3 (0.0-0.9); Mono % (Auto) 9.2 % (0.0-8.0); Neut # (Auto) 1.7 th/mm3 (1.8-7.7); Neut % (Auto) 54.1 % (16.0-70.0); Platelet Count 80 th/mm3 (150-450); Red Blood Count 3.87 mil/mm3 (4.50-5.90); Red Cell Distribution Width 14.6 % (11.6-17.2); White Blood Count 3.1 th/mm3 (4.0-11.0)
[2018-04-05 04:32] LABS: INR 1.1 Ratio; Prothrombin Time 11.4 sec (9.8-11.6)
[2018-04-05 04:56] LABS: Albumin 1.9 g/dL (3.4-5.0); Anion Gap 6 meq/L (5-15); Aspartate Aminotransferase 32 U/L (15-37); Blood Urea Nitrogen 30 mg/dL (7-18); Calcium 7.6 mg/dL (8.5-10.1); Carbon Dioxide 25.4 meq/L (21.0-32.0); Chloride 111 meq/L (98-107); Glomerular Filtration Rate 57 mL/min (>89); Glucose,Random 62 mg/dL (74-106); Potassium 4.1 meq/L (3.5-5.1); Sodium 142 meq/L (136-145)
[2018-04-05 04:59] LABS: Alanine Aminotransferase 25 U/L (12-78); Alkaline Phosphatase 81 U/L (45-117); Total Protein 6.1 g/dL (6.4-8.2)
[2018-04-05] MEDS: Famotidine 20 MG Tablet PO SCH ×2 (08:56→20:49)
[2018-04-05] MEDS: amLODIPine 10 MG Tablet PO SCH (08:56)
[2018-04-05] MEDS: Carvedilol 12.5 MG Tablet PO SCH ×2 (08:56→20:48)
[2018-04-05] MEDS: Chlorhexidine Gluconate 0.12% Liq 15 ML UDC SWISH-SPIT SCH ×3 (08:57→17:39)
[2018-04-05] MEDS: Insulin NovoLOG Aspart Correctional Sugar Inj SQ SCH ×4 (09:00→20:58)
[2018-04-05] MEDS: Insulin Detemir Inj 1,000 UNIT/10 ML Vial SQ SCH ×2 (09:01→21:34)
[2018-04-05] MEDS: Temazepam 15 MG Capsule PO PRN (20:59)
[2018-04-05] MEDS: LORazepam 0.5 MG Tablet PO PRN (23:39)
[2018-04-06] MEDS ORDERED: Chlorhexidine Gluconate 2% 1 Pack (2 Cloths) TOPICAL ONE (00:25)
[2018-04-06] MEDS ORDERED: Sodium Chlor 0.9% Inj 500 ML IV.SIG SCH (01:00)
[2018-04-06] MEDS: Sod Chloride 0.9% Inj 1,000 ML IV.CONT SCH ×2 (04:05→16:24)
[2018-04-06] MEDS ORDERED: MethylPREDNISolone Sod Succinate Inj 125 MG/2 ML Vial ONE (06:29)
[2018-04-06] MEDS ORDERED: Heparin - SQ 10,000 UNITS/ML Vial ONE ×2 (06:30→06:31)
[2018-04-06] MEDS ORDERED: fentaNYL Citrate Inj 250 MCG/5 ML Ampul ONE ×2 (07:06)
[2018-04-06] MEDS ORDERED: Midazolam Inj 5 MG/ML 1 ML Vial ONE (07:06)
[2018-04-06] MEDS ORDERED: Cardioplegic Irr Soln 2,000 ML IRRIGATION ONE (07:12)
[2018-04-06] MEDS ORDERED: Potassium Chloride Inj 40 MEQ/20 ML Vial ONE (07:14)
[2018-04-06] MEDS ORDERED: Albumin Human 25% Inj 50 ML IV.SIG ONE (07:15)
[2018-04-06] MEDS ORDERED: Heparin 10,000 UNITS/10 ML Vial (for IV use) ONE (07:15)
[2018-04-06] MEDS ORDERED: DEXTROSE 50% ONE (07:27)
[2018-04-06] MEDS ORDERED: Dextrose 50% in Water Syringe 50 ML ONE (07:27)
[2018-04-06] MEDS ORDERED: WATER ONE (07:27)
[2018-04-06] MEDS ORDERED: Tranexamic Acid Inj 1,000 MG/10 ML Ampul IV.PUSH ONE (07:30)
[2018-04-06] MEDS ORDERED: Sod Chloride 0.9% Inj 1,000 ML IV.CONT ONE (07:30)
[2018-04-06] MEDS ORDERED: Sodium Bicarbonate 8.4% Inj 50 MEQ/50 ML Syringe IV.PUSH ONE (08:00)
[2018-04-06] MEDS ORDERED: Heparin - SQ 10,000 UNITS/ML Vial OTHER ONE (09:16)
[2018-04-06] MEDS ORDERED: Calcium Chloride Inj 1 GM/10 ML Syringe IV.PUSH ONE (11:35)
[2018-04-06] MEDS ORDERED: Dexmedetomidine Inj 200 MCG/2 ML Vial IV.CONT ONE (11:45)
[2018-04-06] MEDS ORDERED: Protamine Sulfate Inj 50 MG/5 ML Vial IV.CONT ONE (11:55)
[2018-04-06] MEDS: Insulin NovoLOG Aspart Correctional Sugar Inj SQ SCH ×2 (11:57→13:07)
[2018-04-06] MEDS: Famotidine 20 MG Tablet PO SCH ×2 (11:58→20:40)
[2018-04-06] MEDS: Insulin Detemir Inj 1,000 UNIT/10 ML Vial SQ SCH (11:58)
[2018-04-06] MEDS: Carvedilol 12.5 MG Tablet PO SCH (11:58)
[2018-04-06] MEDS: amLODIPine 10 MG Tablet PO SCH (11:58)
[2018-04-06] MEDS: Chlorhexidine Gluconate 0.12% Liq 15 ML UDC SWISH-SPIT SCH ×3 (11:59→18:18)
[2018-04-06] MEDS ORDERED: RESP: Racemic Epinephrine 2.25% 0.5 ML Neb NEB ONE (12:42)
[2018-04-06] MEDS ORDERED: Potassium Chlor 20 mEq Premix 20 MEQ/100 ML PIGGYBACK IV.SIG PRN ×3 (12:42)
[2018-04-06] MEDS ORDERED: Calcium Chloride Inj 1 GM/10 ML Syringe IV.PUSH PRN (12:42)
[2018-04-06] MEDS ORDERED: Clevidipine Inj 25 MG/50 ML VIAL IV.CONT PRN (12:42)
[2018-04-06] MEDS ORDERED: Dextrose 50% in Water 50 ML Vial IV.PUSH PRN (12:42)
[2018-04-06] MEDS ORDERED: Metoprolol Inj 5 MG/5 ML Vial IV.PUSH PRN (12:42)
[2018-04-06] MEDS ORDERED: Magnesium Sulfate Inj 2 GM in Sodium Chlor 0.9% Inj 96 ML IV.SIG PRN ×4 (12:42)
[2018-04-06] MEDS ORDERED: Insulin Regular (For Infusion) 100 UNIT in Sodium Chlor 0.9% Inj 99 ML IV.CONT PRN (12:42)
[2018-04-06] MEDS ORDERED: Post-op Orders (for Pharmacy) OTHER STA (12:42)
[2018-04-06] MEDS ORDERED: Calcium Chloride Inj 1 GM in Sodium Chlor 0.9% Inj 100 ML IV.SIG PRN (12:42)
[2018-04-06] MEDS: EPINEPHrine (1:1000) Inj 4 MG in Sodium Chlor 0.9% Inj 246 ML IV.CONT PRN (13:08)
[2018-04-06] MEDS ORDERED: FOLIC ACID IV.SIG SCH (15:00)
[2018-04-06] MEDS ORDERED: [UNRECOGNIZED DRUG - OTHER] IV.SIG SCH (15:00)
[2018-04-06] MEDS ORDERED: MULTIVITAMIN IV.SIG SCH (15:00)
[2018-04-06] MEDS ORDERED: THIAMINE IV.SIG SCH (15:00)
[2018-04-06] MEDS: Albumin Human 5% Inj 250 ML IV.SIG PRN (16:22)
[2018-04-06] MEDS: fentaNYL Citrate Inj 100 MCG/2 ML Ampul IV.PUSH PRN ×2 (18:18→22:45)
[2018-04-07] MEDS: fentaNYL Citrate Inj 100 MCG/2 ML Ampul IV.PUSH PRN ×4 (01:07→15:16)
[2018-04-07] MEDS: Sod Chloride 0.9% Inj 1,000 ML IV.CONT SCH ×2 (05:15→17:03)
[2018-04-07 05:30] LABS: Hemoglobin 8.3 gm/dL (13.0-17.0); Mean Corpuscular HGB Conc 33.2 % (32.0-36.0); Mean Corpuscular Volume 87.2 fL (80.0-100.0); Mean Platelet Volume 10.4 fL (7.0-11.0); Platelet Count 84 th/mm3 (150-450); Red Blood Count 2.87 mil/mm3 (4.50-5.90); Red Cell Distribution Width 15.3 % (11.6-17.2); White Blood Count 10.6 th/mm3 (4.0-11.0)
[2018-04-07] MEDS: Albumin Human 5% Inj 250 ML IV.SIG PRN (06:17)
[2018-04-07 07:46] LABS: Calcium 7.7 mg/dL (8.5-10.1); Carbon Dioxide 18.8 meq/L (21.0-32.0); Magnesium 2.8 mg/dL (1.5-2.5); Potassium 5.5 meq/L (3.5-5.1)
[2018-04-07] MEDS ORDERED: Dextrose 50% in Water 50 ML Vial IV.PUSH PRN (08:50)
[2018-04-07] MEDS ORDERED: Sod Phosphate/Sod Biphosphate (Adult) Enema 133 ML Bottle RECTAL PRN (08:50)
[2018-04-07] MEDS ORDERED: Bisacodyl 10 MG Supp RECTAL PRN (08:50)
[2018-04-07] MEDS: Famotidine 20 MG Tablet PO SCH ×2 (08:57→21:31)
[2018-04-07] MEDS ORDERED: Sodium Polystyrene Sulfonate/Sorbitol Liq 15 GM/60 ML UDC PO ONE (09:45)
[2018-04-07] MEDS: Multivitamin/Minerals Therapeutic Tablet PO SCH (10:01)
[2018-04-07] MEDS: Insulin NovoLOG Aspart Correctional Sugar Inj SQ SCH ×4 (10:10→23:22)
[2018-04-07] MEDS: EPINEPHrine (1:1000) Inj 4 MG in Sodium Chlor 0.9% Inj 246 ML IV.CONT PRN ×2 (11:39→15:31)
[2018-04-07 11:43] LABS: Hematocrit 21.5 % (39.0-51.0); Hemoglobin 7.1 gm/dL (13.0-17.0)
[2018-04-07] MEDS ORDERED: DOPamine 400 MG/250 ML Premix 400 MG/250 ML BAG IV.CONT ONE (13:23)
[2018-04-07 19:04] LABS: Calcium 7.8 mg/dL (8.5-10.1); Carbon Dioxide 21.3 meq/L (21.0-32.0); Potassium 4.9 meq/L (3.5-5.1)
[2018-04-07] MEDS: Temazepam 15 MG Capsule PO PRN (21:32)
[2018-04-07] MEDS: Docusate Sodium 100 MG Capsule PO SCH (21:33)
--- NOTE | 2018-04-08 01:00 | ECG ---
Date Performed: 04/07/2018 Time Performed: 06:25:38 PTAGE: 52 years EKG: Sinus rhythm . Anteroseptal ST elevation non-specific Abnormal ECG PREVIOUS TRACING : 04/07/2018 03.36 Compared to previous tracing, previously AV paced DOCTOR: Renny Gupta Interpretating Date/Time 04/08/2018 00:59:55
--- NOTE | 2018-04-08 01:07 | ECG ---
Date Performed: 04/07/2018 Time Performed: 03:36:44 PTAGE: 52 years EKG: A-V sequential pacemaker. Pacemaker rhythm - no further analysis Abnormal ECG PREVIOUS TRACING : 03/31/2018 14.39 Compared to previous tracing, now AV paced DOCTOR: Renny Gupta Interpretating Date/Time 04/08/2018 01:05:47
[2018-04-08] MEDS: fentaNYL Citrate Inj 100 MCG/2 ML Ampul IV.PUSH PRN ×2 (03:14→08:33)
[2018-04-08 05:13] LABS: Baso % (Auto) 0.3 % (0.0-2.0); Eos # (Auto) 0.1 th/mm3 (0.0-0.4); Eos % (Auto) 1.4 % (0.0-4.0); Hematocrit 28.5 % (39.0-51.0); Hemoglobin 9.7 gm/dL (13.0-17.0); Lymph % (Auto) 19.9 % (9.0-44.0); Mean Corpuscular HGB Conc 34.2 % (32.0-36.0); Mean Corpuscular Hemoglobin 30.4 pg (27.0-34.0); Mean Corpuscular Volume 88.9 fL (80.0-100.0); Mean Platelet Volume 10.9 fL (7.0-11.0); Mono # (Auto) 0.4 th/mm3 (0.0-0.9); Neut # (Auto) 3.4 th/mm3 (1.8-7.7); Neut % (Auto) 69.4 % (16.0-70.0); Platelet Count 53 th/mm3 (150-450); Red Cell Distribution Width 15.2 % (11.6-17.2)
[2018-04-08 05:53] LABS: Calcium 7.5 mg/dL (8.5-10.1); Carbon Dioxide 22.6 meq/L (21.0-32.0); Magnesium 2.5 mg/dL (1.5-2.5); Potassium 5.1 meq/L (3.5-5.1)
[2018-04-08] MEDS: Insulin NovoLOG Aspart Correctional Sugar Inj SQ SCH ×5 (06:49→20:27)
[2018-04-08] MEDS: Sod Chloride 0.9% Inj 1,000 ML IV.CONT SCH ×2 (06:50→20:23)
[2018-04-08] MEDS: Docusate Sodium 100 MG Capsule PO SCH ×2 (08:30→20:26)
[2018-04-08] MEDS: Multivitamin/Minerals Therapeutic Tablet PO SCH (08:30)
[2018-04-08] MEDS: Famotidine 20 MG Tablet PO SCH ×2 (08:30→20:25)
[2018-04-08] MEDS ORDERED: Polyethylene Glycol 3350 17 GM Packet PO SCH (09:00)
[2018-04-08] MEDS ORDERED: Bisacodyl 10 MG Supp RECTAL PRN (10:04)
[2018-04-08] MEDS: Metoprolol Tartrate 25 MG Tablet PO SCH (20:25)
[2018-04-09] MEDS: Sod Chloride 0.9% Inj 1,000 ML IV.CONT SCH (05:21)
[2018-04-09 05:28] LABS: Baso % (Auto) 0.1 % (0.0-2.0); Eos # (Auto) 0.1 th/mm3 (0.0-0.4); Eos % (Auto) 1.1 % (0.0-4.0); Hematocrit 26.5 % (39.0-51.0); Hemoglobin 9.1 gm/dL (13.0-17.0); Lymph # (Auto) 1.2 th/mm3 (1.0-4.8); Lymph % (Auto) 17.6 % (9.0-44.0); Mean Corpuscular HGB Conc 34.4 % (32.0-36.0); Mean Corpuscular Hemoglobin 30.5 pg (27.0-34.0); Mean Corpuscular Volume 88.8 fL (80.0-100.0); Mean Platelet Volume 11.2 fL (7.0-11.0); Mono # (Auto) 0.6 th/mm3 (0.0-0.9); Mono % (Auto) 8.6 % (0.0-8.0); Neut # (Auto) 5.1 th/mm3 (1.8-7.7); Neut % (Auto) 72.6 % (16.0-70.0); Platelet Count 55 th/mm3 (150-450); Red Blood Count 2.98 mil/mm3 (4.50-5.90); Red Cell Distribution Width 14.8 % (11.6-17.2); White Blood Count 7.1 th/mm3 (4.0-11.0)
[2018-04-09 05:55] LABS: Calcium 7.2 mg/dL (8.5-10.1); Carbon Dioxide 26.2 meq/L (21.0-32.0)
[2018-04-09 06:09] LABS: Total Protein 5.2 g/dL (6.4-8.2)
[2018-04-09] MEDS: Insulin NovoLOG Aspart Correctional Sugar Inj SQ SCH ×4 (07:51→20:57)
[2018-04-09] MEDS: Multivitamin/Minerals Therapeutic Tablet PO SCH (08:12)
[2018-04-09] MEDS: Polyethylene Glycol 3350 17 GM Packet PO SCH (08:12)
[2018-04-09] MEDS: Docusate Sodium 100 MG Capsule PO SCH ×2 (08:13→20:55)
[2018-04-09] MEDS: Famotidine 20 MG Tablet PO SCH ×2 (08:13→20:55)
[2018-04-09] MEDS: Metoprolol Tartrate 25 MG Tablet PO SCH ×3 (08:14→20:55)
[2018-04-10] MEDS: Insulin NovoLOG Aspart Correctional Sugar Inj SQ SCH ×2 (07:52→11:20)
[2018-04-10] MEDS: Docusate Sodium 100 MG Capsule PO SCH (07:59)
[2018-04-10] MEDS: Multivitamin/Minerals Therapeutic Tablet PO SCH (07:59)
[2018-04-10] MEDS: Metoprolol Tartrate 25 MG Tablet PO SCH (07:59)
[2018-04-10] MEDS: Famotidine 20 MG Tablet PO SCH (07:59)
[2018-04-10] MEDS: Polyethylene Glycol 3350 17 GM Packet PO SCH (08:00)
[2018-04-10 09:51] LABS: Hematocrit 29.4 % (39.0-51.0); Hemoglobin 9.8 gm/dL (13.0-17.0); Mean Corpuscular HGB Conc 33.4 % (32.0-36.0); Mean Corpuscular Hemoglobin 29.9 pg (27.0-34.0); Mean Corpuscular Volume 89.5 fL (80.0-100.0); Mean Platelet Volume 10.6 fL (7.0-11.0); Platelet Count 70 th/mm3 (150-450); Red Blood Count 3.29 mil/mm3 (4.50-5.90); Red Cell Distribution Width 15.3 % (11.6-17.2); White Blood Count 6.3 th/mm3 (4.0-11.0)
[2018-04-10 10:15] LABS: Calcium 7.7 mg/dL (8.5-10.1); Carbon Dioxide 28.1 meq/L (21.0-32.0); Potassium 4.7 meq/L (3.5-5.1)
== END 2018-04-10 17:22 ==
LOC: NEDA 07:35 → NEPE 07:35 → NEDA 10:30 → NEPFCDU 11:12 → HCIS 04-03 07:36 → HCPC 04-04 08:04 → HCVI 04-06 13:22 → HCPC 04-08 15:22
PROVIDERS: ADMIT Hospitalist; ATTEND Hospitalist

== ENCOUNTER 2018-04-28 16:35 | Inpatient (IN) ==
--- NOTE | 2018-04-28 16:47 | ED ---
HPI General Chief Complaint: Syncope Stated Complaint: syncope Time Seen by Provider: 04/28/18 16:46 Source: patient and EMS Mode of arrival: EMS Limitations: no limitations History of Present Illness HPI narrative: Patient is 52 years old and arrives to the ED with a complaint of syncope and fall as well as neck pain and a laceration to the right forearm. The patient underwent CABG here about 2 weeks ago. He lives at the [facility]. Evidently he left his room to say goodbye to his significant other and lost consciousness and fell to the ground. He complains is acute on chronic cervicalgia is worse. He reports last night he had abdominal pain in the left side and evidently was crying out loud according to his daughter; he reports this occurred while he was sleeping. EMS reports systolic blood pressure of 90s on scene. Patient reports feeling his normal state of health over the past few days. MD complaint: Reports loss of consciousness and collapsed Onset (ago): hour(s) (1) -: second(s) Witnessed: yes - by bystander Context: Reports standing up Related Data Home Medications Medication Instructions Recorded Confirmed duloxetine 30 mg PO DAILY 03/31/18 04/28/18 insulin detemir U-100 [Levemir 15 unit SUB-Q BID 03/31/18 04/28/18 U-100 Insulin] pregabalin [Lyrica] 200 mg PO TID 03/31/18 04/28/18 Previous Rx's Medication Instructions Recorded aspirin 81 mg PO DAILY #30 tab 04/10/18 atorvastatin 40 mg PO HS #30 tab 04/10/18 docusate sodium [DOK] 100 mg PO BID #60 cap 04/10/18 hydrocodone-acetaminophen [[place]] 1 tab PO Q6H PRN #30 tab 04/10/18 metoprolol tartrate 25 mg PO BID #60 tab 04/10/18 cephalexin [Keflex] 500 mg PO Q6H 10 Days #40 cap 04/22/18 sulfamethoxazole-trimethoprim 1 tab PO BID 7 Days #14 tab 04/22/18 [Bactrim DS] Allergies Allergy/AdvReac Type Severity Reaction Status Date / Time Fish Containing Products Allergy Severe Swelling Verified 03/31/18 07:56 of Lip/Tongue/Throat Review of Systems ROS: all other systems reviewed are negative Constitutional Denies fever(s) PMFSH Medical History Medical History Cervical radiculopathy due to degenerative joint disease of spine (Acute) Coronary artery disease involving coronary bypass graft (Acute) Diabetes (Acute) Fibromyalgia (Acute) Neuropathy (Acute) Surgical History Surgical History Hx of shoulder surgery (Acute) Social History Social History Substance History: Active Abuse Second Hand Smoke Exposure: Yes Smoking Status: Current every day smoker Tobacco Type: Cigarettes How Often Do You Have a Drink Containing Alcohol: 2 to 4 times a month Exam Narrative Exam Narrative: GENERAL: 52-year-old male well-nourished well-developed no acute distress SKIN: Focused skin assessment warm/dry. HEAD: Atraumatic. Normocephalic. EYES: Pupils equal and round. No scleral icterus. No injection or drainage. ENT: No nasal bleeding or discharge. Mucous membranes pink and moist. NECK: C-collar present. No JVD. CARDIOVASCULAR: Surgical sternotomy scar present without cellulitis. RESPIRATORY: Lungs are clear. No tachypnea. GASTROINTESTINAL: Abdomen soft, non-tender, nondistended. Hepatic and splenic margins not palpable. MUSCULOSKELETAL: No obvious deformities. No clubbing. No cyanosis. No edema. NEUROLOGICAL: Awake and alert. No obvious cranial nerve deficits. Motor grossly within normal limits. Normal speech. PSYCHIATRIC: Appropriate mood and affect; insight and judgment normal. Course Initial Documented Vital Signs Temperature 98.5 F 04/28/18 16:45 Pulse Rate 78 04/28/18 16:45 Respiratory Rate 18 04/28/18 16:45 Blood Pressure 119/62 04/28/18 16:45 Pulse Oximetry 93 L 04/28/18 16:45 Last Documented Vital Signs Temperature 98.5 F 04/28/18 16:45 Pulse Rate 80 04/28/18 16:51 Respiratory Rate 18 04/28/18 16:51 Blood Pressure 110/66 04/28/18 16:51 Pulse Oximetry 96 04/28/18 16:51 Medical Decision Making MDM Narrative Medical decision making narrative: The patient is 52 years old and arrives by EMS following a syncope with fall event. Workup reveals a left lung base pneumonia. The patient underwent CABG about 3-1/2 weeks ago. There is concern for healthcare associated pneumonia. Antibiotic started. Blood cultures drawn. Patient has remained hemodynamically stable here in the ED. Case discussed with the family medicine residents. Patient was admitted to Dr. Gilmore. Medical Screen Exam Complete: Yes Emergency Medical Condition: Yes Medical Records Medical records reviewed: Yes I reviewed the patient's medical records. Lab Data Result diagrams: 04/28/18 16:55 04/28/18 16:55 Lab Results 04/28/18 04/28/18 Range/Units 16:55 16:55 WBC 6.4 (4.0-11.0) th/mm3 RBC 3.33 L (4.50-5.90) mil/mm3 Hgb 10.1 L (13.0-17.0) gm/dL Hct 29.7 L (39.0-51.0) % MCV 89.1 (80.0-100.0) fL MCH 30.4 (27.0-34.0) pg MCHC 34.1 (32.0-36.0) % RDW 15.7 (11.6-17.2) % Plt Count 249 (150-450) th/mm3 MPV 9.4 (7.0-11.0) fL Neut % (Auto) 57.8 (16.0-70.0) % Lymph % (Auto) 24.5 (9.0-44.0) % [place] % (Auto) 11.8 H (0.0-8.0) % Eos % (Auto) 5.1 H (0.0-4.0) % Baso % (Auto) 0.8 (0.0-2.0) % Neut # (Auto) 3.7 (1.8-7.7) th/mm3 Lymph # (Auto) 1.6 (1.0-4.8) th/mm3 [place] # (Auto) 0.8 (0.0-0.9) th/mm3 Eos # (Auto) 0.3 (0.0-0.4) th/mm3 Baso # (Auto) 0.1 (0.0-0.2) th/mm3 WBC Differential . Differential Comment Auto diff final Sodium 139 (136-145) meq/L Potassium 4.4 (3.5-5.1) meq/L Chloride 110 H (98-107) meq/L Carbon Dioxide 21.3 (21.0-32.0) meq/L Anion Gap 8 (5-15) meq/L BUN 38 H (7-18) mg/dL Creatinine 2.22 H (0.60-1.30) mg/dL Estimated GFR 31 L (>89) mL/min Random Glucose 117 H (74-106) mg/dL Calcium 7.8 L (8.5-10.1) mg/dL Serum Alcohol Less than 3 (0-5) mg/dL Imaging Data Radiologist's impression: Cervical Spine CT 04/28/18 16:54 CONCLUSION: 1. No acute bony injury is seen. 2. Degenerative change. Chest X-Ray 04/28/18 16:54 CONCLUSION: Left lower lobe infiltrate with tiny effusion. ECG Data EKG Prior to Arrival: Yes Attestation: I personally reviewed and interpreted this ECG as follows: (EKG shows a sinus rhythm with a rate of 78 no preexcitation or acute ischemic injury pattern) Discharge Plan Discharge Disposition Patient Disposition: 30 Still Patient Discharge Details Diagnosis: Syncope and collapse Physicians Team ED Provider: Tom Gupta Primary Care Provider: Tina Mccracken, Rxs /Orders / Referrals /Forms Prescriptions: No Action pregabalin [Lyrica] 200 mg Capsule 200 mg PO TID RF: 0 insulin detemir U-100 [Levemir U-100 Insulin] 100 unit/mL Solution 15 unit SUB-Q BID RF: 0 duloxetine 30 mg Capsule,Delayed Release(Dr/Ec) 30 mg PO DAILY RF: 0 atorvastatin 40 mg Tablet 40 mg PO HS Qty: 30 RF: 0 aspirin 81 mg Tablet,Chewable 81 mg PO DAILY Qty: 30 RF: 0 metoprolol tartrate 25 mg Tablet 25 mg PO BID Qty: 60 RF: 0 docusate sodium [DOK] 100 mg Capsule 100 mg PO BID Qty: 60 RF: 0 hydrocodone-acetaminophen [[place]] 5-325 mg Tablet 1 tab PO Q6H PRN (Reason: Acute Pain) Qty: 30 RF: 0 cephalexin [Keflex] 500 mg capsule 500 mg PO Q6H 10 Days Qty: 40 RF: 0 sulfamethoxazole-trimethoprim [Bactrim DS] 800-160 mg tablet 1 tab PO BID 7 Days Qty: 14 RF: 0 Status ED Status: With Doctor
[2018-04-28] MEDS ORDERED: Acetaminophen 325 MG Tablet PO ONE (16:54)
[2018-04-28 17:28] LABS: Baso # (Auto) 0.1 th/mm3 (0.0-0.2); Baso % (Auto) 0.8 % (0.0-2.0); Eos # (Auto) 0.3 th/mm3 (0.0-0.4); Eos % (Auto) 5.1 % (0.0-4.0); Hematocrit 29.7 % (39.0-51.0); Hemoglobin 10.1 gm/dL (13.0-17.0); Lymph # (Auto) 1.6 th/mm3 (1.0-4.8); Lymph % (Auto) 24.5 % (9.0-44.0); Mean Corpuscular HGB Conc 34.1 % (32.0-36.0); Mean Corpuscular Hemoglobin 30.4 pg (27.0-34.0); Mean Corpuscular Volume 89.1 fL (80.0-100.0); Mean Platelet Volume 9.4 fL (7.0-11.0); Mono # (Auto) 0.8 th/mm3 (0.0-0.9); Mono % (Auto) 11.8 % (0.0-8.0); Neut # (Auto) 3.7 th/mm3 (1.8-7.7); Neut % (Auto) 57.8 % (16.0-70.0); Platelet Count 249 th/mm3 (150-450); Red Blood Count 3.33 mil/mm3 (4.50-5.90); Red Cell Distribution Width 15.7 % (11.6-17.2); White Blood Count 6.4 th/mm3 (4.0-11.0)
--- NOTE | 2018-04-28 17:46 | XR ---
EXAM DATE: 04/28/2018 4:54 PM EDT AGE/SEX: 52 years / Male INDICATIONS: Chest pain, CLINICAL DATA: This is the patient's initial encounter. Patient reports that signs and symptoms have been present for 2 days and indicates a pain score of 3/10. MEDICAL/SURGICAL HISTORY: Diabetes. Coronary artery disease. CABG. COMPARISON: [facility] [place]ST 1V SINGLE AP, 04/07/2018. . FINDINGS: A single AP view of the chest demonstrates a consolidation involving the left lung base which is new from the prior study. Tiny left effusion. Right lung is clear. Heart is normal in size. Median sterno toma wires noted. CONCLUSION: Left lower lobe infiltrate with tiny effusion. Electronically signed by: Rudi Dean MD 04/28/2018 5:44 PM EDT
--- NOTE | 2018-04-28 18:26 | CT ---
EXAM DATE: 04/28/2018 5:01 PM EDT AGE/SEX: 52 years / Male INDICATIONS: Fall. Syncopal episode. CABG three weeks ago. CLINICAL DATA: This is the patient's initial encounter. Patient reports that signs and symptoms have been present for 1 day and indicates a pain score of 6/10. MEDICAL/SURGICAL HISTORY: Diabetes. Congestive heart failure. Hypertension. Kidney disease. CABG. RADIATION DOSE: 16.35 CTDI (mGy) COMPARISON: No prior exams available for comparison. TECHNIQUE: Contiguous axial images were obtained using helical multirow detector technique. The vol umetric data was post-processed with multiplanar reconstruction in oblique axial, sagittal, and coron al planes. Using automated exposure control and adjustment of the mA and/or kV according to patient s ize, radiation dose was kept as low as reasonably achievable to obtain optimal diagnostic quality juliette ges. DICOM format image data is available electronically for review and comparison. FINDINGS: Vertebrae: Normal vertebral body height. Alignment: Normal. No subluxation. There is mild reversal of normal C-spine lordosis. C2-3: The bony spinal canal is normal in size. No evidence of disc bulge or herniation. The neural foramina are bilaterally patent. There is left facet hypertrophy. C3-4: The bony spinal canal is normal in size. No evidence of disc bulge or herniation. There is b ilateral facet hypertrophy being worse in the right. There is mild narrowing of the right neural fora becca. Left neural foramina is patent. C4-5: Minimal disc bulge without definite significant stenosis. Mild posterior osteophytic ridging s een. The neural foramina are grossly patent. C5-6: The disc demonstrates decreased height. There is mild diffuse disc bulge. There is osteophytic ridging. There is uncovertebral hypertrophy. The neural foramina are grossly patent. Anterior margin al osteophytes are seen. C6-7: The disc demonstrates decreased height. A significant impression on thecal sac is not clearly seen. There is uncovertebral hypertrophy being worse on the right. There is narrowing of the right ne ural foramina. The left neural foramina is patent. C7-T1: The disc demonstrates decreased height. There is a vacuum phenomenon. A significant impressio n on thecal sac is not seen. The neural foramina are grossly patent. CONCLUSION: 1. No acute bony injury is seen. 2. Degenerative change. Electronically signed by: Mohit Kincaid MD 04/28/2018 6:25 PM EDT
[2018-04-28 18:28] LABS: Anion Gap 8 meq/L (5-15); Blood Urea Nitrogen 38 mg/dL (7-18); Calcium 7.8 mg/dL (8.5-10.1); Carbon Dioxide 21.3 meq/L (21.0-32.0); Chloride 110 meq/L (98-107); Glomerular Filtration Rate 31 mL/min (>89); Glucose,Random 117 mg/dL (74-106); Potassium 4.4 meq/L (3.5-5.1); Sodium 139 meq/L (136-145)
[2018-04-28] MEDS ORDERED: Vancomycin Inj 1 GM/200 ML PIGGYBACK IV.SIG ONE (18:53)
--- NOTE | 2018-04-28 19:39 | P.HPFP ---
History of Present Illness Primary Care Physician: Tina Mccracken Chief Complaint: syncope History of Present Illness: 52-year-old male with PMH of diabetes on insulin, chronic pain syndrome and, CKD , and a recent CABG x4 surgery performed on , presented to the emergency department after a syncopal episode. Patient states that he was talking to his ex girlfriend while standing on the outside door of his hotel room and all of a sudden fell to the floor. Patient does not remember this episode. The last thing he remembers is talking and then sitting on the floor getting help. Patient has lacerations on his right arm. During ED workup, patient was found to have pneumonia on chest x-ray. Due to his recent hospitalization patient qualifies for hospital-acquired pneumonia. Patient denies fevers, states his has been feeling cold/chills, no night sweats. Patient currently has a cough, productive in nature, bringing white sputum. Patient denies chest pain, order done from his prior surgery. Patient denies any shortness of breath, but endorses dizziness this last couple of days. He denies headaches, nausea or vomiting. PMH: Diabetes on insulin, chronic pain syndrome, fibromyalgia, cervical spine disease, CKD, history of a non-STEMI, hypertension, history of cocaine abuse, hep C positive Surgery history: CABG x4 on 04/06, shoulder surgery Medications: Duloxetine, Lyrica, aspirin, atorvastatin, metoprolol, Levemir, and recently [place] 5/325 for surgical pain Social: Patient reports difficult current living situations. He was evicted from his apartment during his last hospitalizations and is now living at in a [place]. He reports only eating 1 meal a day. States he continues to smokes but now only half a pack a day. Reports not more use of cocaine or other drugs. Denies drinking or any alcohol related issues in the past. - Diagnosis (1) Hospital acquired PNA (2) Syncope and collapse (3) S/P CABG x 4 (4) Hypertension (5) Tobacco abuse (6) Nutrition, metabolism, and development symptoms Inpatient Certification: I certify that the inpatient services were ordered in accordance with Medicare regulations governing the order. This includes certification that hospital inpatient services are reasonable and necessary and in the case of services not specified as inpatient-only under 42 CFR 419.22(n), that they are appropriately provided as inpatient services in accordance to with the 2-midnight benchmark under 43 CFR 412.3(e) Estimated Total Length of Stay (Days): 2 Plans for Post Hospital Care: Not yet determined Review of Systems Constitutional: Reports chills, Denies fever(s), Denies night sweats Ears, Nose, Mouth, and Throat: Reports dizziness, Denies sore throat Cardiovascular: Reports chest pain, Reports fainting, Denies shortness of breath Respiratory: Reports cough Gastrointestinal: Denies abdominal pain, Denies nausea, Denies vomiting PMFSH - History History Provided By: Patient - Medical History Medical History: Medical History (Last Reviewed 04/29/18 @ 02:40 by Elodia Chino MD, R1 ) Cervical radiculopathy due to degenerative joint disease of spine Coronary artery disease involving coronary bypass graft Diabetes Fibromyalgia Neuropathy - Surgical History Surgical History: Surgical History (Last Updated 04/29/18 @ 02:40 by Elodia Chino MD, R1 ) Hx of CABG Hx of shoulder surgery - Social History I have reviewed the patient's Social History: Yes - Tobacco History Second Hand Smoke Exposure: Yes Tobacco Use In Past 30 Days: Yes Smoking Status: Current every day smoker Tobacco Type: Cigarettes - Alcohol History How Often Do You Have a Drink Containing Alcohol: 2 to 4 times a month - Substance Use History Substance History: Active Abuse - Substance Use Type Marijuana Status: Active - Immunization History Tetanus Immunization: <5 Years Medications and Allergies Active Medications: Active Medications Hydrocodone Bitart/Acetaminophen (Rich[place] 5/325) 1 tab PO Q4H PRN PRN Reason: PAIN SCALE 1 TO 10 Heparin Sodium (Porcine) (Heparin Inj) 5,000 units SQ Q12H JOSE Vancomycin HCl 1,000 mg/ (Sodium Chloride) 250 mls @ 250 mls/hr IV.SIG ONCE ONE Stop: 04/28/18 20:59 Ondansetron HCl (Zofran Inj) 4 mg IV.PUSH Q6H PRN PRN Reason: NAUSEA OR VOMITING Senna/Docusate Sodium (Tasha-Colace) 1 tab PO BID JOSE Allergies Allergy/AdvReac Type Severity Reaction Status Date / Time Fish Containing Products Allergy Severe Swelling Verified 03/31/18 07:56 of Lip/Tongue/Throat Home Medications Medication Instructions Recorded Confirmed Type duloxetine 30 mg PO DAILY 03/31/18 04/28/18 History insulin detemir U-100 [Levemir 15 unit SUB-Q BID 03/31/18 04/28/18 History U-100 Insulin] pregabalin [Lyrica] 200 mg PO TID 03/31/18 04/28/18 History Exam Vital signs: Vital Signs 04/28/18 16:45 04/28/18 16:51 Temperature 98.5 F Pulse Rate 78 80 Respiratory Rate 18 18 Blood Pressure 119/62 110/66 Pulse Oximetry 93 L 96 Intake & Output 04/28/18 04/28/18 04/29/18 06:59 18:59 06:59 Weight 77.111 kg Results - Labs Result diagrams: 04/28/18 16:55 04/28/18 16:55 Abnormal lab results 04/28/18 04/28/18 Range/Units 16:55 16:55 RBC 3.33 L (4.50-5.90) mil/mm3 Hgb 10.1 L (13.0-17.0) gm/dL Hct 29.7 L (39.0-51.0) % Crosby % (Auto) 11.8 H (0.0-8.0) % Eos % (Auto) 5.1 H (0.0-4.0) % Chloride 110 H (98-107) meq/L BUN 38 H (7-18) mg/dL Creatinine 2.22 H (0.60-1.30) mg/dL Estimated GFR 31 L (>89) mL/min Random Glucose 117 H (74-106) mg/dL Calcium 7.8 L (8.5-10.1) mg/dL Short CBC 04/28/18 Range/Units 16:55 WBC 6.4 (4.0-11.0) th/mm3 Hgb 10.1 L (13.0-17.0) gm/dL Hct 29.7 L (39.0-51.0) % Plt Count 249 (150-450) th/mm3 BMP 04/28/18 16:55 Sodium 139 Potassium 4.4 Chloride 110 H Carbon Dioxide 21.3 BUN 38 H Creatinine 2.22 H Calcium 7.8 L - Imaging Impressions Cervical Spine CT 04/28/18 16:54 CONCLUSION: 1. No acute bony injury is seen. 2. Degenerative change. Chest X-Ray 04/28/18 16:54 CONCLUSION: Left lower lobe infiltrate with tiny effusion. Caprini VTE Risk Assessment Caprini VTE Risk Assessment: Moderate/High Risk (score >= 2) Caprini Risk Assessment Model: Point Value = 1 Point Value = 2 Point Value = 3 Point Value = 5 Age 41-60 Minor surgery BMI > 25 kg/m2 Swollen legs Varicose veins or History of unexplained or recurrent spontaneous Oral contraceptives or hormone replacement Sepsis (< 1 month) Serious lung disease, including pneumonia (< 1 month) Abnormal pulmonary function Acute myocardial infarction Congestive heart failure (< 1 month) History of inflammatory bowel disease Medical patient at bed rest Age 61-74 Arthroscopic surgery Major open surgery (> 45 min) Laparoscopic surgery (> 45 min) Malignancy Confined to bed (> 72 hours) Immobilizing plaster cast Central venous access Age >= 75 History of VTE Family history of VTE Factor V Leiden Prothrombin [id number] Lupus anticoagulant Anticardiolipin antibodies Elevated serum homocysteine Heparin-induced thrombocytopenia Other congenital or acquired thrombophilia Stroke (< 1 month) Elective arthroplasty Hip, pelvis, or leg fracture Acute spinal cord injury (< 1 month) Prophylaxis Regimen: Total Risk Factor Score Risk Level Prophylaxis Regimen 0-1 Low Early ambulation 2 Moderate Order ONE of the following: *Sequential Compression Device (SCD) *Heparin 5000 units SQ BID 3-4 Higher Order ONE of the following medications: *Heparin 5000 units SQ TID *Enoxaparin/Lovenox 40 mg SQ daily (WT < 150 kg, CrCl > 30 mL/min) *Enoxaparin/Lovenox 30 mg SQ daily (WT < 150 kg, CrCl > 10-29 mL/min) *Enoxaparin/Lovenox 30 mg SQ BID (WT < 150 kg, CrCl > 30 mL/min) AND/OR *Sequential Compression Device (SCD) 5 or more Highest Order ONE of the following medications: *Heparin 5000 units SQ TID (Preferred with Epidurals) *Enoxaparin/Lovenox 40 mg SQ daily (WT < 150 kg, CrCl > 30 mL/min) *Enoxaparin/Lovenox 30 mg SQ daily (WT < 150 kg, CrCl > 10-29 mL/min) *Enoxaparin/Lovenox 30 mg SQ BID (WT < 150 kg, CrCl > 30 mL/min) AND *Sequential Compression Device (SCD) Assessment and Plan - Assessment (1) Hospital acquired PNA Code(s): J18.9 - Pneumonia, unspecified organism Status: Acute (2) Syncope and collapse Code(s): R55 - Syncope and collapse Status: Acute (3) S/P CABG x 4 Code(s): Z95.1 - Presence of aortocoronary bypass graft Status: Acute (4) Hypertension Code(s): I10 - Essential (primary) hypertension Status: Acute (5) Tobacco abuse Code(s): Z72.0 - Tobacco use Status: Acute (6) Nutrition, metabolism, and development symptoms Code(s): R63.8 - Other symptoms and signs concerning food and fluid intake Status: Acute - Assessment and Plan 52 yr old male presenting to the ED after a syncopal episode found to have pneumonia. Pt recently underwent CABG on 04/06, qualifying this as Hospital Acquired Pneumonia. Pt received one dose of Vancomycin and one dose of cefepime in ED. VS wnl, no leukocytosis. Plan: Hospital Acquired Pneumonia - Continue Cefepime 2g q 8hr - Vancomycin renally dosed at 1,500mg q 24 hr - pharmacy consulted and dosing - Albuterol 2.5mg NEB q2 hr PRN for shortness of breath - Blood cultures pending - Incentive Spirometry - Tylenol PRN for fever Hx of CABGx4 on 04/06 Continue Aspirin 81mg daily Continue [place] 5/325mg po PRN q4 Continue to monitor incision for signs of infection Diabetes on insulin Continue Levemir SQ BID 15 Units Low insulin SS Diabetic Diet Hypertension Continue Metoprolol 25mg BID CKD Avoid nephrotoxic medications Fibromyalgia Continue Lyrica 200mg po BID Continue Cymbalta 30mg daily Hyperlipidemia Continue home atorvastatin 40mg daily FEN/DVT Cardiac and diabetic 1999 ADA diet PO hydration Electrolytes: monitor and replace as needed DVT Heparin 5000 BID
[2018-04-28] MEDS ORDERED: Vancomycin Inj 1,000 MG in Sodium Chlor 0.9% Inj 250 ML IV.SIG ONE ×2 (20:00→22:30)
[2018-04-28] MEDS: Senna/Docusate Sodium 8.6/50 MG Tablet PO SCH (21:02)
[2018-04-28] MEDS ORDERED: Vancomycin Consult Pharmacy OTHER PRN (21:57)
[2018-04-28] MEDS: Heparin - SQ 10,000 UNITS/ML Vial SQ SCH (22:07)
[2018-04-28] MEDS ORDERED: Sodium Chloride 0.9% 2 ML Flush PRN IV.FLUSH (22:09)
[2018-04-28 22:39] LABS: Amphetamine Screen,Urine Neg (Neg); Barbiturate Screen,Urine Neg (Neg); Cannabinoid Screen,Urine Pos (Neg); Cocaine Screen,Urine Neg (Neg)
[2018-04-28 22:47] LABS: Opiate Screen,Urine Neg (Neg)
[2018-04-29] MEDS ORDERED: Dextrose 50% in Water 50 ML Vial IV.PUSH PRN (02:58)
[2018-04-29] MEDS ORDERED: Acetaminophen 325 MG Tablet PO PRN (02:59)
[2018-04-29 06:36] LABS: Baso # (Auto) 0.1 th/mm3 (0.0-0.2); Baso % (Auto) 1.1 % (0.0-2.0); Eos # (Auto) 0.5 th/mm3 (0.0-0.4); Eos % (Auto) 11.2 % (0.0-4.0); Hematocrit 33.5 % (39.0-51.0); Lymph # (Auto) 1.6 th/mm3 (1.0-4.8); Lymph % (Auto) 34.6 % (9.0-44.0); Mean Corpuscular HGB Conc 32.9 % (32.0-36.0); Mean Corpuscular Hemoglobin 29.2 pg (27.0-34.0); Mean Corpuscular Volume 88.9 fL (80.0-100.0); Mean Platelet Volume 9.8 fL (7.0-11.0); Mono # (Auto) 0.5 th/mm3 (0.0-0.9); Mono % (Auto) 9.8 % (0.0-8.0); Neut % (Auto) 43.3 % (16.0-70.0); Platelet Count 229 th/mm3 (150-450); Red Blood Count 3.76 mil/mm3 (4.50-5.90); Red Cell Distribution Width 15.6 % (11.6-17.2); White Blood Count 4.7 th/mm3 (4.0-11.0)
[2018-04-29 07:08] LABS: Albumin 1.7 g/dL (3.4-5.0); Anion Gap 7 meq/L (5-15); Aspartate Aminotransferase 113 U/L (15-37); Blood Urea Nitrogen 42 mg/dL (7-18); Carbon Dioxide 23.9 meq/L (21.0-32.0); Chloride 109 meq/L (98-107); Glomerular Filtration Rate 35 mL/min (>89); Glucose,Random 101 mg/dL (74-106); Potassium 3.9 meq/L (3.5-5.1); Sodium 140 meq/L (136-145)
[2018-04-29 07:09] LABS: Alanine Aminotransferase 98 U/L (12-78)
[2018-04-29 07:12] LABS: Alkaline Phosphatase 204 U/L (45-117); Total Protein 7.3 g/dL (6.4-8.2)
[2018-04-29] MEDS: Insulin NovoLOG Aspart Correctional Sugar Inj SQ SCH ×4 (07:32→21:07)
[2018-04-29] MEDS: Metoprolol Tartrate 25 MG Tablet PO SCH ×2 (08:22→21:03)
[2018-04-29] MEDS: Insulin Detemir Inj 1,000 UNIT/10 ML Vial SQ SCH ×2 (08:22→21:04)
[2018-04-29] MEDS: Senna/Docusate Sodium 8.6/50 MG Tablet PO SCH ×2 (08:22→21:03)
[2018-04-29] MEDS: Sodium Chloride 0.9% 2 ML Flush BID IV.FLUSH SCH ×2 (08:26→21:06)
[2018-04-29] MEDS: Heparin - SQ 10,000 UNITS/ML Vial SQ SCH ×2 (08:26→21:05)
[2018-04-29] MEDS ORDERED: Benzonatate 100 MG Capsule PO PRN (10:22)
--- NOTE | 2018-04-29 10:29 | XR ---
EXAM DATE: 04/29/2018 12:00 AM EDT AGE/SEX: 52 years / Male INDICATIONS: . Cough. CLINICAL DATA: This is the patient's initial encounter. Patient reports that signs and symptoms have been present for 1 day and indicates a pain score of 7/10. MEDICAL/SURGICAL HISTORY: . Diabetes. Congestive heart failure. Hypertension. Kidney disease. CABG. CABG. COMPARISON: [facility] [place], CHEST 1V SINGLE AP, 04/28/2018. [facility] [place], CHEST 1V SINGLE AP, 04/07/2018. [facility] [place], CT A BDOMEN & PELVIS W/O CONTRAST, 04/02/2018. . FINDINGS: AP lateral views of the chest demonstrate increased opacification and obscuration of the left hemidia phragm concerning for a worsening subpulmonic pleural effusion. The over lying lung appears grossly c lear. Right hemithorax is clear. Heart size is normal. Intact median sternotomy wires. There is a non displaced fracture involving the lateral aspect of the left eighth rib. Adjacent healing callus forma tion. CONCLUSION: Overall worsening lung exam with increased obscuration of the left hemidiaphragm and airspace opacity involving the left lower lobe concerning for worsening subpulmonic fluid collection. Given the adjac ent rib fracture this may represent a large subpulmonic hematoma. Electronically signed by: Simran Early MD 04/29/2018 10:28 AM EDT
--- NOTE | 2018-04-29 12:52 | P.HPFP ---
History of Present Illness Primary Care Physician: Tina Mccracken Chief Complaint: syncope History of Present Illness: 52-year-old male evaluated with resident physicians on rounds this morning. He continues to complain of some anterior chest discomfort that he has had since his CABG surgery on 04/06. He has some left-sided chest discomfort from his recent fall as well but states that it is relatively well controlled with his pain medication. He denies any acute worsening of his chest pain, denies palpitations, denies fevers or chills, denies coughing or sputum production. He states that he is feeling relatively well and has not had any episodes of lightheadedness or dizziness since arrival to the hospital. In summary, this is a 52-year-old male status post recent CABG x4 vessels on who presents to [place] after a syncopal episode. Patient states that he was talking to his ex- when he suddenly collapsed. He does not remember this episode. He recalls waking up and being assisted while on the floor. He did sustain a laceration to his right arm and [facility] was called to transport him to the hospital. In the emergency department, he was noted to have new findings on chest x-ray indicative of a left lower lobe pneumonia. - Diagnosis (1) Hospital acquired PNA (2) Syncope and collapse (3) S/P CABG x 4 (4) Hypertension (5) Chronic kidney disease (CKD) (6) Diabetes mellitus, insulin dependent (IDDM), uncontrolled (7) Tobacco abuse (8) Nutrition, metabolism, and development symptoms Inpatient Certification: I certify that the inpatient services were ordered in accordance with Medicare regulations governing the order. This includes certification that hospital inpatient services are reasonable and necessary and in the case of services not specified as inpatient-only under 42 CFR 419.22(n), that they are appropriately provided as inpatient services in accordance to with the 2-midnight benchmark under 43 CFR 412.3(e) Estimated Total Length of Stay (Days): 2 Plans for Post Hospital Care: Not yet determined PMFSH - History History Provided By: Patient - Medical History Medical History: Medical History (Last Reviewed 04/29/18 @ 07:51 by Bettie Laboy) Cervical radiculopathy due to degenerative joint disease of spine Coronary artery disease involving coronary bypass graft Diabetes Fibromyalgia Neuropathy - Surgical History Surgical History: Surgical History (Last Reviewed 04/29/18 @ 07:51 by Bettie Laboy) Hx of CABG Hx of shoulder surgery - Tobacco History Second Hand Smoke Exposure: Yes Tobacco Use In Past 30 Days: Yes Smoking Status: Current every day smoker Tobacco Type: Cigarettes - Alcohol History How Often Do You Have a Drink Containing Alcohol: 2 to 4 times a month - Substance Use History Substance History: Active Abuse - Substance Use Type Marijuana Status: Active - Immunization History Tetanus Immunization: <5 Years Hx Influenza Vaccine This Season: No Medications and Allergies Active Medications: Active Medications Acetaminophen (Tylenol) 650 mg PO Q4H PRN PRN Reason: FEVER Hydrocodone Bitart/Acetaminophen ([place] 5/325) 1 tab PO Q4H PRN PRN Reason: PAIN SCALE 1 TO 10 Last Admin: 04/29/18 12:30 Dose: 1 tab Albuterol (Albuterol Neb (Prn)) 2.5 mg NEB Q2HR NEB PRN PRN Reason: SHORTNESS OF BREATH Aspirin (Aspirin Chew) 81 mg PO DAILY [facility] Last Admin: 04/29/18 08:21 Dose: 81 mg Atorvastatin Calcium (Lipitor) 40 mg PO HS [facility] Benzonatate (Tessalon Perles) 100 mg PO Q8H PRN PRN Reason: COUGH Dextrose (D50w Vial) 50 ml IV.PUSH UNSCH PRN PRN Reason: PER HYPOGLYCEMIA PROTOCOL Duloxetine HCl (Cymbalta) 30 mg PO DAILY [facility] Last Admin: 04/29/18 08:21 Dose: 30 mg Glucagon (Glucagon Inj) 1 mg OTHER PRN PRN PRN Reason: for Hypoglycemia Protocol Heparin Sodium (Porcine) (Heparin Inj) 5,000 units SQ Q12H [facility] Last Admin: 04/29/18 08:26 Dose: 5,000 units Levofloxacin/Dextrose (Levaquin 750 Mg Premix Inj) 150 mls @ 100 mls/hr IV.SIG Q48H [facility] Insulin Aspart (Novolog Insulin Correctional Sugar Inj) 0 unit SQ ACHS [facility]; Protocol Last Admin: 04/29/18 12:33 Dose: Not Given Insulin Detemir (Levemir Inj) 15 unit SQ BID [facility] Last Admin: 04/29/18 08:22 Dose: 15 unit Metoprolol Tartrate (Lopressor) 25 mg PO BID [facility] Last Admin: 04/29/18 08:22 Dose: 25 mg Miscellaneous Information ([facility] Ordered Lab Info) 1 each OTHER ONCE ONE Stop: 04/30/18 21:46 Ondansetron HCl (Zofran Inj) 4 mg IV.PUSH Q6H PRN PRN Reason: NAUSEA OR VOMITING Pregabalin (Lyrica) 200 mg PO TID [facility] Last Admin: 04/29/18 12:30 Dose: 200 mg Senna/Docusate Sodium (Tasha-Colace) 1 tab PO BID [facility] Last Admin: 04/29/18 08:22 Dose: 1 tab Sodium Chloride (Ns Flush) 2 ml IV.FLUSH BID [facility] Last Admin: 04/29/18 08:26 Dose: 2 ml Sodium Chloride (Ns Flush) 2 ml IV.FLUSH PRN PRN PRN Reason: FLUSH AFTER USING IV ACCESS Allergies Allergy/AdvReac Type Severity Reaction Status Date / Time Fish Containing Products Allergy Severe Swelling Verified 03/31/18 07:56 of Lip/Tongue/Throat Home Medications Medication Instructions Recorded Confirmed Type duloxetine 30 mg PO DAILY 03/31/18 04/28/18 History insulin detemir U-100 [Levemir 15 unit SUB-Q BID 03/31/18 04/28/18 History U-100 Insulin] pregabalin [Lyrica] 200 mg PO TID 03/31/18 04/28/18 History Exam Vital signs: Vital Signs 04/28/18 16:45 04/28/18 16:51 04/28/18 19:47 Temperature 98.5 F Pulse Rate 78 80 83 Respiratory Rate 18 18 Blood Pressure 119/62 110/66 Pulse Oximetry 93 L 96 04/28/18 19:48 04/28/18 20:00 04/28/18 22:25 Temperature 97.5 F L Pulse Rate 77 76 Respiratory Rate 18 Blood Pressure 141/81 H Pulse Oximetry 97 96 04/28/18 23:31 04/29/18 00:00 04/29/18 04:00 Temperature 97.6 F 97.8 F Pulse Rate 77 79 Respiratory Rate 18 17 18 Blood Pressure 152/81 H 165/94 H Pulse Oximetry 96 96 04/29/18 05:13 04/29/18 08:00 04/29/18 09:00 Temperature 97.8 F Pulse Rate 88 84 Respiratory Rate 18 16 Blood Pressure 159/78 H Pulse Oximetry 94 L 04/29/18 10:43 04/29/18 10:44 Temperature Pulse Rate 69 73 Respiratory Rate Blood Pressure 151/76 H 124/64 Pulse Oximetry Intake & Output 04/28/18 04/29/18 04/29/18 18:59 06:59 18:59 Intake Total 350 / 350 Output Total 600 / 600 Balance -250 / -250 Weight 77.111 kg 77.111 kg Intake: IV 350 / 350 Maxipime Inj 2,000 MG In NS Inj 100 / 100 100 ML @ 200 mls/hr IV.SIG ONCE ONE Rx#:[id number] Vancomycin Inj 1,000 MG In NS 250 / 250 Inj 250 ML @ 250 mls/hr IV.SIG ONCE ONE Rx#:[id number] Output: Urine 600 / 600 Other: # Voids 4 Date of Last Bowel Movement 04/28/18 04/28/18 Weight On Admission 77.111 kg Narrative: General: Frail-appearing, thin male mildly uncomfortable sitting up in bed Skin: Anterior chest with well-healing sternal incision without evidence of erythema or drainage Chest: Tender to palpation anterolateral chest bilaterally HEENT: Extraocular muscles intact, pupils equal, round, and reactive CV: Regular rate and rhythm without murmur Lungs: Decreased breath sounds in left lower lobe without overt crackles or rhonchi MSK: Right arm wrapped in Vijay bandage, otherwise no obvious lesions NEUROLOGICAL: Awake and alert. No obvious cranial nerve deficits. Motor grossly within normal limits. Normal speech. PSYCHIATRIC: Appropriate mood and affect; insight and judgment normal. Results - Labs Result diagrams: 04/29/18 04:57 04/29/18 04:57 Abnormal lab results 04/28/18 04/28/18 04/28/18 Range/Units 16:55 16:55 22:00 RBC 3.33 L (4.50-5.90) mil/mm3 Hgb 10.1 L (13.0-17.0) gm/dL Hct 29.7 L (39.0-51.0) % [place] % (Auto) 11.8 H (0.0-8.0) % Eos % (Auto) 5.1 H (0.0-4.0) % Eos # (Auto) (0.0-0.4) th/mm3 Chloride 110 H (98-107) meq/L BUN 38 H (7-18) mg/dL Creatinine 2.22 H (0.60-1.30) mg/dL Estimated GFR 31 L (>89) mL/min POC Glucose (68-110) mg/dl Random Glucose 117 H (74-106) mg/dL Calcium 7.8 L (8.5-10.1) mg/dL AST (15-37) U/L ALT (12-78) U/L Alkaline Phosphatase (45-117) U/L Albumin (3.4-5.0) g/dL U Cannabinoids Screen Pos H (Neg) 04/29/18 04/29/18 04/29/18 Range/Units 04:57 04:57 07:29 RBC 3.76 L (4.50-5.90) mil/mm3 Hgb 11.0 L (13.0-17.0) gm/dL Hct 33.5 L (39.0-51.0) % [place] % (Auto) 9.8 H (0.0-8.0) % Eos % (Auto) 11.2 H (0.0-4.0) % Eos # (Auto) 0.5 H (0.0-0.4) th/mm3 Chloride 109 H (98-107) meq/L BUN 42 H (7-18) mg/dL Creatinine 2.00 H (0.60-1.30) mg/dL Estimated GFR 35 L (>89) mL/min POC Glucose 126 H (68-110) mg/dl Random Glucose (74-106) mg/dL Calcium 8.0 L (8.5-10.1) mg/dL AST 113 H (15-37) U/L ALT 98 H (12-78) U/L Alkaline Phosphatase 204 H (45-117) U/L Albumin 1.7 L (3.4-5.0) g/dL U Cannabinoids Screen (Neg) Short CBC 04/28/18 04/29/18 Range/Units 16:55 04:57 WBC 6.4 4.7 (4.0-11.0) th/mm3 Hgb 10.1 L 11.0 L (13.0-17.0) gm/dL Hct 29.7 L 33.5 L (39.0-51.0) % Plt Count 249 229 (150-450) th/mm3 BMP 04/28/18 04/29/18 16:55 04:57 Sodium 139 140 Potassium 4.4 3.9 Chloride 110 H 109 H Carbon Dioxide 21.3 23.9 BUN 38 H 42 H Creatinine 2.22 H 2.00 H Calcium 7.8 L 8.0 L Liver Function 04/29/18 Range/Units 04:57 Total Bilirubin 0.3 (0.2-1.0) mg/dL AST 113 H (15-37) U/L ALT 98 H (12-78) U/L Alkaline Phosphatase 204 H (45-117) U/L Albumin 1.7 L (3.4-5.0) g/dL - Imaging Impressions Cervical Spine CT 04/28/18 16:54 CONCLUSION: 1. No acute bony injury is seen. 2. Degenerative change. Chest X-Ray 04/28/18 16:54 CONCLUSION: Left lower lobe infiltrate with tiny effusion. Chest X-Ray 04/29/18 00:00 CONCLUSION: Overall worsening lung exam with increased obscuration of the left hemidiaphragm and airspace opacity involving the left lower lobe concerning for worsening subpulmonic fluid collection. Given the adjacent rib fracture this may represent a large subpulmonic hematoma. Caprini VTE Risk Assessment Caprini VTE Risk Assessment: Moderate/High Risk (score >= 2) Caprini Risk Assessment Model: Point Value = 1 Point Value = 2 Point Value = 3 Point Value = 5 Age 41-60 Minor surgery BMI > 25 kg/m2 Swollen legs Varicose veins or History of unexplained or recurrent spontaneous Oral contraceptives or hormone replacement Sepsis (< 1 month) Serious lung disease, including pneumonia (< 1 month) Abnormal pulmonary function Acute myocardial infarction Congestive heart failure (< 1 month) History of inflammatory bowel disease Medical patient at bed rest Age 61-74 Arthroscopic surgery Major open surgery (> 45 min) Laparoscopic surgery (> 45 min) Malignancy Confined to bed (> 72 hours) Immobilizing plaster cast Central venous access Age >= 75 History of VTE Family history of VTE Factor V Leiden Prothrombin [id number] Lupus anticoagulant Anticardiolipin antibodies Elevated serum homocysteine Heparin-induced thrombocytopenia Other congenital or acquired thrombophilia Stroke (< 1 month) Elective arthroplasty Hip, pelvis, or leg fracture Acute spinal cord injury (< 1 month) Prophylaxis Regimen: Total Risk Factor Score Risk Level Prophylaxis Regimen 0-1 Low Early ambulation 2 Moderate Order ONE of the following: *Sequential Compression Device (SCD) *Heparin 5000 units SQ BID 3-4 Higher Order ONE of the following medications: *Heparin 5000 units SQ TID *Enoxaparin/Lovenox 40 mg SQ daily (WT < 150 kg, CrCl > 30 mL/min) *Enoxaparin/Lovenox 30 mg SQ daily (WT < 150 kg, CrCl > 10-29 mL/min) *Enoxaparin/Lovenox 30 mg SQ BID (WT < 150 kg, CrCl > 30 mL/min) AND/OR *Sequential Compression Device (SCD) 5 or more Highest Order ONE of the following medications: *Heparin 5000 units SQ TID (Preferred with Epidurals) *Enoxaparin/Lovenox 40 mg SQ daily (WT < 150 kg, CrCl > 30 mL/min) *Enoxaparin/Lovenox 30 mg SQ daily (WT < 150 kg, CrCl > 10-29 mL/min) *Enoxaparin/Lovenox 30 mg SQ BID (WT < 150 kg, CrCl > 30 mL/min) AND *Sequential Compression Device (SCD) Assessment and Plan - Assessment (1) Hospital acquired PNA Code(s): J18.9 - Pneumonia, unspecified organism Status: Acute Plan: Recent hospitalization left lower lobe pneumonia on x-ray Antibiotics: Levaquin 750 mg IV daily -Started on cefepime in the emergency department for suspected healthcare associated pneumonia however patient has not required recent antibiotics Repeat chest x-ray ordered for this morning Incentive spirometer to bedside Blood cultures ordered and pending Monitor pulse ox and supplemental oxygen as needed to keep O2 sats greater than 93% (2) Syncope and collapse Code(s): R55 - Syncope and collapse Status: Acute Plan: Unknown source of syncope, possibly due to infection with pneumonia versus arrhythmia Repeat chest x-ray ordered for further evaluation Consider 2D echocardiogram Monitor on telemetry for arrhythmias EKG reviewed, no acute changes (3) S/P CABG x 4 Code(s): Z95.1 - Presence of aortocoronary bypass graft Status: Acute Plan: Consider cardiothoracic consult if patient deteriorates (4) Hypertension Code(s): I10 - Essential (primary) hypertension Status: Acute Plan: Continue Metoprolol 25mg BID (5) Chronic kidney disease (CKD) Code(s): N18.9 - Chronic kidney disease, unspecified Status: Acute Plan: Avoid nephrotoxic medications Monitor with daily labs (6) Diabetes mellitus, insulin dependent (IDDM), uncontrolled Code(s): E10.65 - Type 1 diabetes mellitus with hyperglycemia Status: Acute Plan: Continue Levemir SQ BID 15 Units Low insulin SS Diabetic Diet (7) Tobacco abuse Code(s): Z72.0 - Tobacco use Status: Acute Plan: Strongly recommend smoking cessation (8) Nutrition, metabolism, and development symptoms Code(s): R63.8 - Other symptoms and signs concerning food and fluid intake Status: Acute Plan: Cardiac and diabetic 2000 ADA diet PO hydration Electrolytes: monitor and replace as needed DVT Heparin 5000 BID H&P: Quality - VTE Deep Vein Thrombosis/Pulmonary Embolism Present on Admission: No (4) Hypertension Qualifiers: Hypertension type: essential hypertension Qualified Code(s): I10 - Essential (primary) hypertension
--- NOTE | 2018-04-29 12:56 | ECG ---
Date Performed: 04/28/2018 Time Performed: 16:46:10 PTAGE: 52 years EKG: Sinus rhythm POSSIBLE LEFT ATRIAL ENLARGEMENT NONSPECIFIC T-WAVE ABNORMALITY BORDERLINE ECG Compared to PREVIOUS TRACING , ST-T changes slightly more prominent, otherwise no significant change. PREVIOUS TRACIN04/07/2018 06.25 DOCTOR: Griffin Shearer Interpretating Date/Time 04/29/2018 12:55:18
[2018-04-29] MEDS ORDERED: Vancomycin Inj 1,500 MG in Sodium Chlor 0.9% Inj 500 ML IV.SIG SCH (22:00)
[2018-04-30 05:32] LABS: Hematocrit 33.3 % (39.0-51.0); Hemoglobin 10.9 gm/dL (13.0-17.0); Mean Corpuscular HGB Conc 32.8 % (32.0-36.0); Mean Corpuscular Hemoglobin 29.2 pg (27.0-34.0); Mean Corpuscular Volume 89.2 fL (80.0-100.0); Mean Platelet Volume 9.7 fL (7.0-11.0); Platelet Count 222 th/mm3 (150-450); Red Blood Count 3.73 mil/mm3 (4.50-5.90); Red Cell Distribution Width 15.2 % (11.6-17.2); White Blood Count 4.9 th/mm3 (4.0-11.0)
[2018-04-30 06:01] LABS: Calcium 7.8 mg/dL (8.5-10.1); Potassium 4.4 meq/L (3.5-5.1)
[2018-04-30] MEDS ORDERED: hydrALAZINE HCl Inj 20 MG/ML Vial IV.PUSH PRN (08:07)
[2018-04-30] MEDS: Insulin NovoLOG Aspart Correctional Sugar Inj SQ SCH ×4 (09:35→19:59)
[2018-04-30] MEDS: Sodium Chloride 0.9% 2 ML Flush BID IV.FLUSH SCH ×2 (09:39→19:59)
[2018-04-30] MEDS: Heparin - SQ 10,000 UNITS/ML Vial SQ SCH ×2 (09:54→19:59)
[2018-04-30] MEDS: Metoprolol Tartrate 25 MG Tablet PO SCH ×2 (09:56→19:59)
[2018-04-30] MEDS: Insulin Detemir Inj 1,000 UNIT/10 ML Vial SQ SCH ×2 (09:57→20:24)
[2018-04-30] MEDS: Senna/Docusate Sodium 8.6/50 MG Tablet PO SCH ×2 (09:57→19:59)
--- NOTE | 2018-04-30 12:19 | P.PNFP ---
Subjective Interval history: Patient was seen and evaluated this morning. He experienced an episode of dizziness associated with blood glucose in the 60s prior to the encounter. Patient feels better after having some orange juice and crackers. Patient continues to experience chest pain, along his sternum; unchanged from the previous day. He denies shortness of breath, nausea, vomiting, diarrhea and constipation. All questions were answered. <Evelyn Rodríguez - 04/30/18 12:18> Results - Labs Result diagrams: 04/30/18 04:11 04/30/18 04:11 <Deacon Gilmore - 04/30/18 14:24> Abnormal lab results 04/29/18 04/29/18 04/30/18 Range/Units 16:30 19:51 04:11 RBC 3.73 L (4.50-5.90) mil/mm3 Hgb 10.9 L (13.0-17.0) gm/dL Hct 33.3 L (39.0-51.0) % BUN (7-18) mg/dL Creatinine (0.60-1.30) mg/dL Estimated GFR (>89) mL/min POC Glucose 134 H 123 H (68-110) mg/dl Random Glucose (74-106) mg/dL Calcium (8.5-10.1) mg/dL 04/30/18 04/30/18 04/30/18 Range/Units 04:11 07:41 08:00 RBC (4.50-5.90) mil/mm3 Hgb (13.0-17.0) gm/dL Hct (39.0-51.0) % BUN 40 H (7-18) mg/dL Creatinine 1.54 H (0.60-1.30) mg/dL Estimated GFR 47 L (>89) mL/min POC Glucose 63 L 60 L (68-110) mg/dl Random Glucose 64 L (74-106) mg/dL Calcium 7.8 L (8.5-10.1) mg/dL 04/30/18 04/30/18 Range/Units 08:59 11:21 RBC (4.50-5.90) mil/mm3 Hgb (13.0-17.0) gm/dL Hct (39.0-51.0) % BUN (7-18) mg/dL Creatinine (0.60-1.30) mg/dL Estimated GFR (>89) mL/min POC Glucose 165 H 134 H (68-110) mg/dl Random Glucose (74-106) mg/dL Calcium (8.5-10.1) mg/dL Short CBC 04/30/18 Range/Units 04:11 WBC 4.9 (4.0-11.0) th/mm3 Hgb 10.9 L (13.0-17.0) gm/dL Hct 33.3 L (39.0-51.0) % Plt Count 222 (150-450) th/mm3 BMP 04/30/18 04:11 Sodium 139 Potassium 4.4 Chloride 107 Carbon Dioxide 24.0 BUN 40 H Creatinine 1.54 H Calcium 7.8 L <Deacon Gilmore - 04/30/18 14:24> Abnormal lab results 04/29/18 04/29/18 04/29/18 Range/Units 12:32 16:30 19:51 RBC (4.50-5.90) mil/mm3 Hgb (13.0-17.0) gm/dL Hct (39.0-51.0) % BUN (7-18) mg/dL Creatinine (0.60-1.30) mg/dL Estimated GFR (>89) mL/min POC Glucose 181 H 134 H 123 H (68-110) mg/dl Random Glucose (74-106) mg/dL Calcium (8.5-10.1) mg/dL 04/30/18 04/30/18 04/30/18 Range/Units 04:11 04:11 07:41 RBC 3.73 L (4.50-5.90) mil/mm3 Hgb 10.9 L (13.0-17.0) gm/dL Hct 33.3 L (39.0-51.0) % BUN 40 H (7-18) mg/dL Creatinine 1.54 H (0.60-1.30) mg/dL Estimated GFR 47 L (>89) mL/min POC Glucose 63 L (68-110) mg/dl Random Glucose 64 L (74-106) mg/dL Calcium 7.8 L (8.5-10.1) mg/dL 04/30/18 04/30/18 04/30/18 Range/Units 08:00 08:59 11:21 RBC (4.50-5.90) mil/mm3 Hgb (13.0-17.0) gm/dL Hct (39.0-51.0) % BUN (7-18) mg/dL Creatinine (0.60-1.30) mg/dL Estimated GFR (>89) mL/min POC Glucose 60 L 165 H 134 H (68-110) mg/dl Random Glucose (74-106) mg/dL Calcium (8.5-10.1) mg/dL Short CBC 04/30/18 Range/Units 04:11 WBC 4.9 (4.0-11.0) th/mm3 Hgb 10.9 L (13.0-17.0) gm/dL Hct 33.3 L (39.0-51.0) % Plt Count 222 (150-450) th/mm3 BMP 04/30/18 04:11 Sodium 139 Potassium 4.4 Chloride 107 Carbon Dioxide 24.0 BUN 40 H Creatinine 1.54 H Calcium 7.8 L <Evelyn Rodríguez - 04/30/18 12:18> Physical Exam Vital signs: Vital Signs 04/29/18 16:00 04/29/18 20:00 04/29/18 21:33 Temperature 98 F 97.8 F Pulse Rate 76 84 Respiratory Rate 14 17 18 Blood Pressure 170/78 H 195/93 H Pulse Oximetry 94 L 96 04/30/18 00:00 04/30/18 00:30 04/30/18 04:00 Temperature 97.4 F L 97.5 F L Pulse Rate 66 64 78 Respiratory Rate 17 16 Blood Pressure 135/63 182/88 H Pulse Oximetry 92 L 95 04/30/18 04:47 04/30/18 06:37 04/30/18 08:00 Temperature 97.3 F L Pulse Rate 73 74 Respiratory Rate 18 18 Blood Pressure 164/77 H Pulse Oximetry 95 04/30/18 12:00 Temperature 97.8 F Pulse Rate 77 Respiratory Rate 16 Blood Pressure 159/62 H Pulse Oximetry 96 Intake & Output 04/29/18 04/30/18 04/30/18 18:59 06:59 18:59 Intake Total 240 / 240 630 / 630 Output Total 800 / 800 Balance 240 / 240 -170 / -170 Intake: IV 150 / 150 Levaquin 750 mg Premix Inj 150 150 / 150 ML @ 100 mls/hr IV.SIG Q48H [facility] Rx#:[id number] Oral 240 / 240 480 / 480 Output: Urine 800 / 800 Other: Date of Last Bowel Movement 04/28/18 04/28/18 04/28/18 <Deacon Gilmore - 04/30/18 14:24> Vital Signs 04/29/18 12:00 04/29/18 16:00 04/29/18 20:00 Temperature 97.7 F 98 F 97.8 F Pulse Rate 69 76 84 Respiratory Rate 16 14 17 Blood Pressure 151/76 H 170/78 H 195/93 H Pulse Oximetry 96 94 L 96 04/29/18 21:33 04/30/18 00:00 04/30/18 00:30 Temperature 97.4 F L Pulse Rate 66 64 Respiratory Rate 18 17 Blood Pressure 135/63 Pulse Oximetry 92 L 04/30/18 04:00 04/30/18 04:47 04/30/18 06:37 Temperature 97.5 F L Pulse Rate 78 73 Respiratory Rate 16 18 Blood Pressure 182/88 H Pulse Oximetry 95 04/30/18 08:00 Temperature 97.3 F L Pulse Rate 74 Respiratory Rate 18 Blood Pressure 164/77 H Pulse Oximetry 95 <Evelyn Rodríguez - 04/30/18 12:18> Narrative: General: Frail-appearing, thin male in no acute distress. Skin: Anterior chest with well-healing sternal incision without evidence of erythema or drainage. Chest: Tender to palpation anterolateral chest bilaterally. HEENT: Extraocular muscles intact. CV: Regular rate and rhythm without murmur. Lungs: Decreased breath sounds in left lower lobe without overt crackles or rhonchi. MSK: Right arm wrapped in Vijay bandage, otherwise no obvious lesions. NEUROLOGICAL: Awake and alert. No obvious cranial nerve deficits. Motor grossly within normal limits. Normal speech. PSYCHIATRIC: Appropriate mood and affect; insight and judgment appropriate. <Evelyn Rodríguez - 04/30/18 12:18> Assessment and Plan - Assessment (1) Hematoma Code(s): T14.8XXA - Other injury of unspecified body region, initial encounter Status: Acute (2) Hospital acquired PNA Code(s): J18.9 - Pneumonia, unspecified organism Status: Ruled-out (3) Syncope and collapse Code(s): R55 - Syncope and collapse Status: Acute (4) S/P CABG x 4 Code(s): Z95.1 - Presence of aortocoronary bypass graft Status: Chronic (5) Hypertension Code(s): I10 - Essential (primary) hypertension Status: Chronic (6) Chronic kidney disease (CKD) Code(s): N18.9 - Chronic kidney disease, unspecified Status: Chronic (7) Diabetes mellitus, insulin dependent (IDDM), uncontrolled Code(s): E10.65 - Type 1 diabetes mellitus with hyperglycemia Status: Chronic (8) Tobacco abuse Code(s): Z72.0 - Tobacco use Status: Chronic (9) Nutrition, metabolism, and development symptoms Code(s): R63.8 - Other symptoms and signs concerning food and fluid intake Status: Acute (10) DVT prophylaxis Status: Acute (11) Closed rib fracture Code(s): S22.39XA - Fracture of one rib, unspecified side, initial encounter for closed fracture Status: Acute <Deaocn Gilmore - 04/30/18 14:24> (1) Hematoma Code(s): T14.8XXA - Other injury of unspecified body region, initial encounter Status: Acute Plan: Repeat x-ray (2V AP&LAT) with increased obscuration of the left hemidiaphragm and airspace opacity involving the left lower lobe concerning for worsening subpulmonic fluid collection; given the adjacent rib fracture this may represent a large subpulmonic hematoma. Blood culture with no growth to date. Incentive spirometer at bedside. Monitor pulse ox and supplemental oxygen as needed to keep O2 sats greater than 93%. CT surgery consulted; possible drainage of hematoma. (2) Hospital acquired PNA Code(s): J18.9 - Pneumonia, unspecified organism Status: Ruled-out Plan: Recent hospitalization. Initial x-ray in ED with evidence of left lower love infiltrate with tiny effusion. * Started on cefepime in the emergency department for suspected healthcare associated pneumonia. * Switched to Levaquin 750 mg IV daily. Repeat x-ray (2V AP&LAT) with increased obscuration of the left hemidiaphragm and airspace opacity involving the left lower lobe concerning for worsening subpulmonic fluid collection; given the adjacent rib fracture this may represent a large subpulmonic hematoma. Blood culture with no growth to date. * Patient has also been afebrile and without leukocytosis. Thus, antibiotics dc' ed 04/30. (3) Syncope and collapse Code(s): R55 - Syncope and collapse Status: Acute Plan: Unknown source of syncope, possible dehydration/malnutrition versus hypoglycemia versus arrhythmia. EKG 04/28: Sinus rhythm. ECHO 04/01: The left ventricular systolic function is normal with an estimated ejection fraction in the range of 60-65%. Normal left ventricular size. Wall thickness is normal. No regional wall motion abnormalities are present. Trace mitral valve regurgitation. There is trace tricuspid valve regurgitation. The estimated pulmonary arterial pressure is 38.1 mmHg. Carotid US 03/31: Atherosclerotic plaque bilaterally without a hemodynamically significant stenosis involving either carotid artery. Antegrade flow involving both vertebral arteries. CT head pending. Monitor on telemetry for arrhythmias. (4) S/P CABG x 4 Code(s): Z95.1 - Presence of aortocoronary bypass graft Status: Chronic Plan: CT surgery consulted as above. (5) Hypertension Code(s): I10 - Essential (primary) hypertension Status: Chronic Plan: Continue Metoprolol 25mg BID. Vasotec 1.25mg IV q6hr PRN SBP > or = 180, DBP > or = 100. (6) Chronic kidney disease (CKD) Code(s): N18.9 - Chronic kidney disease, unspecified Status: Chronic Plan: Cr. 1.54; improved. Avoid nephrotoxic medications Monitor with daily labs. (7) Diabetes mellitus, insulin dependent (IDDM), uncontrolled Code(s): E10.65 - Type 1 diabetes mellitus with hyperglycemia Status: Chronic Plan: Hypoglycemic episode this a.m. POC Glucose as low as 60. Decreased Levemir from 15 units SQ BID to 10 Units SQ BID. Low insulin SS. Diabetic Diet with Glucerna supplementation. (8) Tobacco abuse Code(s): Z72.0 - Tobacco use Status: Chronic Plan: Patient with history of tobacco use. Strongly recommend smoking cessation. (9) Nutrition, metabolism, and development symptoms Code(s): R63.8 - Other symptoms and signs concerning food and fluid intake Status: Acute Plan: Fluid: * Tolerates PO. Electrolytes: * Monitor and replete as necessary. Nutrition: * Cardiac and diabetic 2000 ADA diet. * Glucerna supplementation. (10) DVT prophylaxis Status: Acute Plan: Heparin 5,000 units SQ q12hr. <Evelyn Rodríguez - 04/30/18 11:49> - Assessment and Plan Discharge Planning: Pending clinical improvement. <Evelyn Rodríguez - 04/30/18 12:18> - Attending Attestation Pt. examined and case discussed with resident physicians. I have read the above note and agree with the assessment and plan as discussed with me. I was involved in all medical decision making for this patient. Deacon Gilmore MD <Deacon Gilmore - 04/30/18 14:24> <Evelyn Rodríguez - Last Filed: 04/30/18 11:49> (5) Hypertension Qualifiers: Hypertension type: essential hypertension Qualified Code(s): I10 - Essential (primary) hypertension <Deacon Gilmore - Last Filed: 04/30/18 14:24> (5) Hypertension Qualifiers: Hypertension type: essential hypertension Qualified Code(s): I10 - Essential (primary) hypertension <Evelyn Rodríguez - Last Filed: 04/30/18 11:49> (5) Hypertension Qualifiers: Hypertension type: essential hypertension Qualified Code(s): I10 - Essential (primary) hypertension <Deacon Gilmore - Last Filed: 04/30/18 14:24> (5) Hypertension Qualifiers: Hypertension type: essential hypertension Qualified Code(s): I10 - Essential (primary) hypertension
[2018-04-30] MEDS ORDERED: Acetaminophen 325 MG Tablet PO PRN (15:02)
[2018-04-30] MEDS ORDERED: Naloxone Inj 0.4 MG/ML Vial IV.PUSH PRN (15:02)
--- NOTE | 2018-04-30 21:00 | CT ---
EXAM DATE: 04/30/2018 8:40 PM EDT AGE/SEX: 52 years / Male INDICATIONS: Dizziness. CLINICAL DATA: This is the patient's initial encounter. Patient reports that signs and symptoms have been present for 1 day and indicates a pain score of 0/10. MEDICAL/SURGICAL HISTORY: Diabetes. Cardiovascular disease. CABG. RADIATION DOSE: 49.35 CTDI (mGy) COMPARISON: [facility] – [place], CT BRAIN W/O CONTRAST, 11/04/2017. . TECHNIQUE: CT of the head without contrast. Using automated exposure control and adjustment of the mA and/or kV according to patient size, radiation dose was kept as low as reasonably achievable to ob tain optimal diagnostic quality images. DICOM format image data is available electronically for revi ew and comparison. FINDINGS: Cerebrum: The ventricles are normal for age. No evidence of midline shift, mass lesion, hemorrhage or acute infarction. No extraaxial fluid collections are seen. Posterior Fossa: The cerebellum and brainstem are intact. The 4th ventricle is midline. The cerebe llopontine angle is unremarkable. Extracranial: The visualized portion of the orbits is intact. Skull: The calvaria is intact. No evidence of skull fracture. CONCLUSION: 1. Negative for an acute process . Electronically signed by: Santi Melchor MD 04/30/2018 8:59 PM EDT
[2018-04-30] MEDS ORDERED: Pharmacy Ordered Lab Info OTHER ONE (21:45)
[2018-05-01 07:09] LABS: Hematocrit 32.2 % (39.0-51.0); Hemoglobin 10.5 gm/dL (13.0-17.0); Mean Corpuscular HGB Conc 32.6 % (32.0-36.0); Mean Corpuscular Hemoglobin 29.2 pg (27.0-34.0); Mean Corpuscular Volume 89.4 fL (80.0-100.0); Mean Platelet Volume 9.8 fL (7.0-11.0); Platelet Count 207 th/mm3 (150-450); Red Cell Distribution Width 15.3 % (11.6-17.2); White Blood Count 5.7 th/mm3 (4.0-11.0)
[2018-05-01 07:37] LABS: Calcium 8.2 mg/dL (8.5-10.1); Carbon Dioxide 22.9 meq/L (21.0-32.0); Potassium 4.6 meq/L (3.5-5.1)
[2018-05-01] MEDS: Insulin NovoLOG Aspart Correctional Sugar Inj SQ SCH ×2 (08:18→12:15)
[2018-05-01] MEDS: Heparin - SQ 10,000 UNITS/ML Vial SQ SCH (08:42)
[2018-05-01] MEDS: Insulin Detemir Inj 1,000 UNIT/10 ML Vial SQ SCH (08:42)
[2018-05-01] MEDS: Sodium Chloride 0.9% 2 ML Flush BID IV.FLUSH SCH (08:42)
[2018-05-01] MEDS: Metoprolol Tartrate 25 MG Tablet PO SCH (08:42)
[2018-05-01] MEDS: Senna/Docusate Sodium 8.6/50 MG Tablet PO SCH (08:42)
--- NOTE | 2018-05-01 09:51 | P.PNFP ---
Subjective Interval history: Doing well, minimal complaint of pain, is controlled. No chest pain, SOB, or weakness. Wants to go home. States he does not have a way to check his sugars at home. <DevinMervinRupinder N - 05/01/18 11:09> Results - Labs Result diagrams: 05/01/18 05:50 05/01/18 05:57 <Deacon Gilmore - 05/01/18 21:14> Abnormal lab results 05/01/18 05/01/18 Range/Units 05:50 05:57 RBC 3.60 L (4.50-5.90) mil/mm3 Hgb 10.5 L (13.0-17.0) gm/dL Hct 32.2 L (39.0-51.0) % Chloride 109 H (98-107) meq/L BUN 45 H (7-18) mg/dL Creatinine 1.66 H (0.60-1.30) mg/dL Estimated GFR 44 L (>89) mL/min Calcium 8.2 L (8.5-10.1) mg/dL Short CBC 05/01/18 Range/Units 05:50 WBC 5.7 (4.0-11.0) th/mm3 Hgb 10.5 L (13.0-17.0) gm/dL Hct 32.2 L (39.0-51.0) % Plt Count 207 (150-450) th/mm3 BMP 05/01/18 05:57 Sodium 140 Potassium 4.6 Chloride 109 H Carbon Dioxide 22.9 BUN 45 H Creatinine 1.66 H Calcium 8.2 L <Deacon Gilmore - 05/01/18 21:14> Abnormal lab results 04/30/18 04/30/18 04/30/18 Range/Units 11:21 16:25 19:51 RBC (4.50-5.90) mil/mm3 Hgb (13.0-17.0) gm/dL Hct (39.0-51.0) % Chloride (98-107) meq/L BUN (7-18) mg/dL Creatinine (0.60-1.30) mg/dL Estimated GFR (>89) mL/min POC Glucose 134 H 135 H 159 H (68-110) mg/dl Calcium (8.5-10.1) mg/dL 05/01/18 05/01/18 Range/Units 05:50 05:57 RBC 3.60 L (4.50-5.90) mil/mm3 Hgb 10.5 L (13.0-17.0) gm/dL Hct 32.2 L (39.0-51.0) % Chloride 109 H (98-107) meq/L BUN 45 H (7-18) mg/dL Creatinine 1.66 H (0.60-1.30) mg/dL Estimated GFR 44 L (>89) mL/min POC Glucose (68-110) mg/dl Calcium 8.2 L (8.5-10.1) mg/dL Short CBC 05/01/18 Range/Units 05:50 WBC 5.7 (4.0-11.0) th/mm3 Hgb 10.5 L (13.0-17.0) gm/dL Hct 32.2 L (39.0-51.0) % Plt Count 207 (150-450) th/mm3 BMP 05/01/18 05:57 Sodium 140 Potassium 4.6 Chloride 109 H Carbon Dioxide 22.9 BUN 45 H Creatinine 1.66 H Calcium 8.2 L <Rupinder Beltran N - 05/01/18 09:51> - Imaging Impressions Head CT 04/30/18 00:00 CONCLUSION: 1. Negative for an acute process . <Rupinder Beltran N - 05/01/18 09:51> Physical Exam Vital signs: Vital Signs 05/01/18 00:00 05/01/18 00:21 05/01/18 01:01 Temperature 97.7 F Pulse Rate 73 76 Respiratory Rate 18 18 Blood Pressure 169/86 H Pulse Oximetry 95 05/01/18 03:41 05/01/18 05:45 05/01/18 08:00 Temperature 97.9 F 98.1 F Pulse Rate 79 80 Respiratory Rate 20 18 18 Blood Pressure 162/79 H 167/87 H Pulse Oximetry 94 L 97 05/01/18 12:00 Temperature 97.5 F L Pulse Rate 74 Respiratory Rate 17 Blood Pressure 131/67 Pulse Oximetry 98 Intake & Output 05/01/18 05/01/18 05/02/18 06:59 18:59 06:59 Intake Total 100 / 100 Balance 100 / 100 Weight 73.3 kg Intake: IV 100 / 100 Other: # Voids 3 Date of Last Bowel Movement 04/28/18 05/01/18 <Deacon Gilmore - 05/01/18 21:14> Vital Signs 04/30/18 12:00 04/30/18 16:00 04/30/18 19:59 Temperature 97.8 F 97.9 F Pulse Rate 77 75 80 Respiratory Rate 16 18 Blood Pressure 159/62 H 141/66 H Pulse Oximetry 96 92 L 04/30/18 20:00 05/01/18 00:00 05/01/18 00:21 Temperature 98.1 F 97.7 F Pulse Rate 80 73 76 Respiratory Rate 19 18 Blood Pressure 158/75 H 169/86 H Pulse Oximetry 96 95 05/01/18 01:01 05/01/18 03:41 05/01/18 05:45 Temperature 97.9 F Pulse Rate 79 Respiratory Rate 18 20 18 Blood Pressure 162/79 H Pulse Oximetry 94 L 05/01/18 08:00 Temperature 98.1 F Pulse Rate 80 Respiratory Rate 18 Blood Pressure 167/87 H Pulse Oximetry 97 Intake & Output 04/30/18 05/01/18 05/01/18 18:59 06:59 18:59 Intake Total 1220 / 1220 100 / 100 Balance 1220 / 1220 100 / 100 Weight 73.3 kg Intake: IV 100 / 100 Oral 1220 / 1220 Other: # Voids 4 3 Date of Last Bowel Movement 04/28/18 04/28/18 05/01/18 <Rupinder Beltran N - 05/01/18 09:51> Narrative: General: Frail-appearing, thin male in no acute distress. Skin: Anterior chest with well-healing sternal incision without evidence of erythema or drainage. Chest: Tender to palpation anterolateral chest bilaterally. HEENT: Extraocular muscles intact. CV: Regular rate and rhythm without murmur. Lungs: Decreased breath sounds in left lower lobe without overt crackles or rhonchi. MSK: Right arm wrapped in Vijay bandage, otherwise no obvious lesions. NEUROLOGICAL: Awake and alert. No obvious cranial nerve deficits. Motor grossly within normal limits. Normal speech. PSYCHIATRIC: Appropriate mood and affect; insight and judgment appropriate. <Rupinder Beltran N - 05/01/18 11:09> Assessment and Plan - Assessment (1) Syncope and collapse Code(s): R55 - Syncope and collapse Status: Acute (2) Diabetes mellitus, insulin dependent (IDDM), uncontrolled Code(s): E10.65 - Type 1 diabetes mellitus with hyperglycemia Status: Chronic (3) Hematoma Code(s): T14.8XXA - Other injury of unspecified body region, initial encounter Status: Acute (4) S/P CABG x 4 Code(s): Z95.1 - Presence of aortocoronary bypass graft Status: Chronic (5) Hypertension Code(s): I10 - Essential (primary) hypertension Status: Chronic (6) Chronic kidney disease (CKD) Code(s): N18.9 - Chronic kidney disease, unspecified Status: Chronic (7) Tobacco abuse Code(s): Z72.0 - Tobacco use Status: Chronic (8) Nutrition, metabolism, and development symptoms Code(s): R63.8 - Other symptoms and signs concerning food and fluid intake Status: Acute (9) DVT prophylaxis Status: Acute (10) Closed rib fracture Code(s): S22.39XA - Fracture of one rib, unspecified side, initial encounter for closed fracture Status: Acute <Deacon Gilmore - 05/01/18 21:14> (1) Syncope and collapse Code(s): R55 - Syncope and collapse Status: Acute Plan: Unknown source of syncope, possible dehydration/malnutrition versus hypoglycemia. EKG 04/28: Sinus rhythm. ECHO 04/01: The left ventricular systolic function is normal with an estimated ejection fraction in the range of 60-65%. Normal left ventricular size. Wall thickness is normal. No regional wall motion abnormalities are present. Trace mitral valve regurgitation. There is trace tricuspid valve regurgitation. The estimated pulmonary arterial pressure is 38.1 mmHg. Carotid US 03/31: Atherosclerotic plaque bilaterally without a hemodynamically significant stenosis involving either carotid artery. Antegrade flow involving both vertebral arteries. CT head w/o abnormalities. No arrhythmia on tele. DC tele today. Glucose meds adjusted. Will need glucometer for regular BG checks outpatient. (2) Diabetes mellitus, insulin dependent (IDDM), uncontrolled Code(s): E10.65 - Type 1 diabetes mellitus with hyperglycemia Status: Chronic Plan: BG wnl for inpatient hospitalization. Con't Levemir 10 Units SQ daily, reduced from BID to prevent episodes of hypoglycemia (episode x1 in the last 2 days). Low insulin SS. Regular diet. (3) Hematoma Code(s): T14.8XXA - Other injury of unspecified body region, initial encounter Status: Acute Plan: Repeat x-ray (2V AP&LAT) with increased obscuration of the left hemidiaphragm and airspace opacity involving the left lower lobe concerning for worsening subpulmonic fluid collection; given the adjacent rib fracture this may represent a large subpulmonic hematoma. Blood culture with no growth to date. Incentive spirometer at bedside. Monitor pulse ox and supplemental oxygen as needed to keep O2 sats greater than 93%. CT surgery consulted; possible drainage of hematoma. Will touch base today to see if that will be a possibility outpatient. (4) S/P CABG x 4 Code(s): Z95.1 - Presence of aortocoronary bypass graft Status: Chronic Plan: CT surgery consulted as above. (5) Hypertension Code(s): I10 - Essential (primary) hypertension Status: Chronic Plan: Controlled. Continue Metoprolol 25mg BID. Vasotec 1.25mg IV q6hr PRN SBP > or = 180, DBP > or = 100. (6) Chronic kidney disease (CKD) Code(s): N18.9 - Chronic kidney disease, unspecified Status: Chronic Plan: Cr. 1.66. May be secondary to dehydration v meds. Avoid nephrotoxic medications Monitor with daily labs. Ensure adequate hydration. (7) Tobacco abuse Code(s): Z72.0 - Tobacco use Status: Chronic Plan: Patient with history of tobacco use. Strongly recommend smoking cessation. (8) Nutrition, metabolism, and development symptoms Code(s): R63.8 - Other symptoms and signs concerning food and fluid intake Status: Acute Plan: Fluid: * Tolerates PO. Electrolytes: * Monitor and replete as necessary. Nutrition: * Regular diet. * Glucerna supplementation. (9) DVT prophylaxis Status: Acute Plan: Heparin 5,000 units SQ q12hr. (10) Closed rib fracture Code(s): S22.39XA - Fracture of one rib, unspecified side, initial encounter for closed fracture Status: Acute <Rupinder Beltran N - 05/01/18 16:36> - Assessment and Plan 52 yr old male presenting to the ED after a syncopal episode found to have pneumonia. Pt recently underwent CABG on 04/06, qualifying this as Hospital Acquired Pneumonia. Pt received one dose of Vancomycin and one dose of cefepime in ED. VS wnl, no leukocytosis. Plan: DC today w/home health care (teaching DM managment) and glucometer. Needs to f/u outpatient. Hematoma of the lung - CT surg consulted. await recs Hx of CABGx4 on 04/06 Continue Aspirin 81mg daily Continue [place] 5/325mg po PRN q4 Continue to monitor incision for signs of infection Diabetes on insulin Continue Levemir SQ BID 10 Units Low insulin SS Regular Diet to obtain adequate number of calories and sugar (due to episode of hypoglycemia) Hypertension Continue Metoprolol 25mg BID CKD Avoid nephrotoxic medications Fibromyalgia Continue Lyrica 200mg po BID Continue Cymbalta 30mg daily Hyperlipidemia Continue home atorvastatin 40mg daily FEN/DVT Cardiac and diabetic 1999 ADA diet recommended outpatient PO hydration Electrolytes: monitor and replace as needed DVT Heparin 5000 BID <Rupinder Beltran N - 05/01/18 11:09> - Attending Attestation Pt. examined and case discussed with resident physicians. I have read the above note and agree with the assessment and plan as discussed with me. I was involved in all medical decision making for this patient. Deacon Gilmore MD <Deacon Gilmore - 05/01/18 21:14> <Rupinder Beltran N - Last Filed: 05/01/18 16:36> (5) Hypertension Qualifiers: Hypertension type: essential hypertension Qualified Code(s): I10 - Essential (primary) hypertension <Deacon Gilmore - Last Filed: 05/01/18 21:14> (5) Hypertension Qualifiers: Hypertension type: essential hypertension Qualified Code(s): I10 - Essential (primary) hypertension <Rupinder Beltran - Last Filed: 05/01/18 16:36> (5) Hypertension Qualifiers: Hypertension type: essential hypertension Qualified Code(s): I10 - Essential (primary) hypertension <Deacon Gilmore - Last Filed: 05/01/18 21:14> (5) Hypertension Qualifiers: Hypertension type: essential hypertension Qualified Code(s): I10 - Essential (primary) hypertension
--- NOTE | 2018-05-01 11:47 | P.DCO ---
- Home Health Nursing Order: Medical education, Signs/symptoms of disease process, Diabetic education - Case Management Consult Yes - Certification I have seen patient Connor Gilmore on 05/01/18. My clinical findings support the need for the requested home health care services because: Medication compliance is questionable, Limited ability to care for self, Injectable medication education/administration I certify that my clinical findings support that this patient is homebound because: Unsafe to leave home unassisted
[2018-05-01 13:06] VITALS: BP 131/67; PULSE 74; RESP 17; TEMP 97.5; O2SAT 98
--- NOTE | 2018-05-01 20:19 | P.DS ---
Date of admission: 04/28/18 19:17 Primary care physician: Tina Mccracken Brief History from admission: 52-year-old male evaluated with resident physicians on rounds this morning. He continues to complain of some anterior chest discomfort that he has had since his CABG surgery on 04/06. He has some left-sided chest discomfort from his recent fall as well but states that it is relatively well controlled with his pain medication. He denies any acute worsening of his chest pain, denies palpitations, denies fevers or chills, denies coughing or sputum production. He states that he is feeling relatively well and has not had any episodes of lightheadedness or dizziness since arrival to the hospital. In summary, this is a 52-year-old male status post recent CABG x4 vessels on who presents to [place] after a syncopal episode. Patient states that he was talking to his ex- when he suddenly collapsed. He does not remember this episode. He recalls waking up and being assisted while on the floor. He did sustain a laceration to his right arm and [facility] was called to transport him to the hospital. In the emergency department, he was noted to have new findings on chest x-ray indicative of a left lower lobe pneumonia. DS: Medications - Discharge Medications Prescriptions: blood glucose strip-disp meter #1 each blood-glucose meter #1 each insulin detemir U-100 [Levemir U-100 Insulin] 10 unit SUBCUT BID 30 Days #6 ml DS: Summary Hospital Course: This is a 52-year-old male with history of CABG x4 performed on 04/06/18, diabetes, chronic pain syndrome, and CKD, presented to the emergency department for syncopal episode. CT head was negative, EKG showed normal sinus rhythm, cardiac telemetry throughout hospital stay showed no arrhythmias, and no significant electrolyte abnormalities were noted. Chest x-ray showed possible pneumonia and due to recent hospital stay for CABG, less than 1 month ago, was qualified as hospital-acquired pneumonia and patient was started on cefepime and vancomycin in the ED. Due to lack of recent antibiotic treatment, patient was changed to Levaquin IV on hospital day 2. Patient did not have an elevated white blood cell count throughout hospital stay, blood cultures were negative and Levaquin was terminated on discharge. Patient also experienced hypoglycemic episode overnight on 04/29, on home regimen of Levemir 15 units twice daily. This was decreased to Levemir 10 units twice daily, without further hypoglycemic episodes. Patient admitted to not having a glucometer and thus an inability to check his blood glucose levels at home. Due to hypoglycemic episode on current insulin regimen while in hospital, it is likely that his this was the cause of his prior syncopal episode. Patient discharged home with home health care on 05/01/18 in good condition with prescription for Levemir and glucometer kit. - Time Spent with Patient Total time spent providing and/or coordinating discharge services: Greater than 30 minutes - Quality: VTE Deep Vein Thrombosis/Pulmonary Embolism Present on Admission: No Exam Vital signs: Vital Signs 05/01/18 00:00 05/01/18 00:21 05/01/18 01:01 Temperature 97.7 F Pulse Rate 73 76 Respiratory Rate 18 18 Blood Pressure 169/86 H Pulse Oximetry 95 05/01/18 03:41 05/01/18 05:45 05/01/18 08:00 Temperature 97.9 F 98.1 F Pulse Rate 79 80 Respiratory Rate 20 18 18 Blood Pressure 162/79 H 167/87 H Pulse Oximetry 94 L 97 05/01/18 12:00 Temperature 97.5 F L Pulse Rate 74 Respiratory Rate 17 Blood Pressure 131/67 Pulse Oximetry 98 Intake & Output 05/01/18 05/01/18 05/02/18 06:59 18:59 06:59 Intake Total 100 / 100 Balance 100 / 100 Weight 73.3 kg Intake: IV 100 / 100 Other: # Voids 3 Date of Last Bowel Movement 04/28/18 05/01/18 Narrative: Narrative: 05/01/18 General: Frail-appearing, thin male in no acute distress. Skin: Anterior chest with well-healing sternal incision without evidence of erythema or drainage. Chest: Tender to palpation anterolateral chest bilaterally. HEENT: Extraocular muscles intact. CV: Regular rate and rhythm without murmur. Lungs: Decreased breath sounds in left lower lobe without overt crackles or rhonchi. MSK: Right arm wrapped in Vijay bandage, otherwise no obvious lesions. NEUROLOGICAL: Awake and alert. No obvious cranial nerve deficits. Motor grossly within normal limits. Normal speech. PSYCHIATRIC: Appropriate mood and affect; insight and judgment appropriate. Results Procedures completed during hospitalization: none Labs on day of discharge: Labs from last 24 hours 05/01/18 05/01/18 05/01/18 12:13 08:16 05:57 WBC RBC Hgb Hct MCV MCH MCHC RDW Plt Count MPV Sodium 140 Potassium 4.6 Chloride 109 H Carbon Dioxide 22.9 Anion Gap 8 BUN 45 H Creatinine 1.66 H Estimated GFR 44 L POC Glucose 105 69 Random Glucose 79 Calcium 8.2 L 05/01/18 05:50 WBC 5.7 RBC 3.60 L Hgb 10.5 L Hct 32.2 L MCV 89.4 MCH 29.2 MCHC 32.6 RDW 15.3 Plt Count 207 MPV 9.8 Sodium Potassium Chloride Carbon Dioxide Anion Gap BUN Creatinine Estimated GFR POC Glucose Random Glucose Calcium Preliminary micro results at discharge 04/28/18 19:30 Aerobic Blood Culture - Preliminary Blood - Peripheral No growth in 3 days Anaerobic Blood Culture - Preliminary No growth in 3 days 04/28/18 19:40 Aerobic Blood Culture - Preliminary Blood - Peripheral No growth in 3 days Anaerobic Blood Culture - Preliminary No growth in 3 days - Impressions ITS Impressions Cervical Spine CT 04/28/18 16:54 CONCLUSION: 1. No acute bony injury is seen. 2. Degenerative change. Chest X-Ray 04/29/18 00:00 CONCLUSION: Overall worsening lung exam with increased obscuration of the left hemidiaphragm and airspace opacity involving the left lower lobe concerning for worsening subpulmonic fluid collection. Given the adjacent rib fracture this may represent a large subpulmonic hematoma. Head CT 04/30/18 00:00 CONCLUSION: 1. Negative for an acute process . Discharge Plan - Discharge Disposition Patient Disposition: W/Home Health Service - Discharge Condition Condition: Stable - Discharge Order Discharge Orders: Discharge Order (Routine); Ordered 05/01/18 Ordered By: Mackenzie Luo - Discharge Details Anticipated Discharge Date: 05/01/18 - Physicians Team Primary Care Provider: Tina Mccracken, Attending Provider: Deacon Gilmore Other Providers: [facility]
== END 2018-05-01 13:50 | disposition home health service (06) ==
LOC: NEPE 16:35 → NEDA 19:17 → N06 21:07
PROVIDERS: ADMIT Family Medicine; ATTEND Family Medicine

== ENCOUNTER 2018-05-26 14:07 | Observation (INO) ==
[2018-05-26] MEDS ORDERED: Aspirin 325 MG Tablet PO ONE (14:36)
[2018-05-26 15:09] LABS: Baso % (Auto) 0.6 % (0.0-2.0); Eos # (Auto) 0.5 th/mm3 (0.0-0.4); Eos % (Auto) 10.1 % (0.0-4.0); Hematocrit 34.9 % (39.0-51.0); Hemoglobin 11.7 gm/dL (13.0-17.0); Lymph # (Auto) 1.3 th/mm3 (1.0-4.8); Lymph % (Auto) 28.2 % (9.0-44.0); Mean Corpuscular HGB Conc 33.5 % (32.0-36.0); Mean Corpuscular Volume 89.6 fL (80.0-100.0); Mono # (Auto) 0.4 th/mm3 (0.0-0.9); Mono % (Auto) 8.6 % (0.0-8.0); Neut # (Auto) 2.5 th/mm3 (1.8-7.7); Neut % (Auto) 52.5 % (16.0-70.0); Platelet Count 169 th/mm3 (150-450); Red Cell Distribution Width 17.2 % (11.6-17.2); White Blood Count 4.8 th/mm3 (4.0-11.0)
--- NOTE | 2018-05-26 15:17 | XR ---
EXAM DATE: 05/26/2018 3:13 PM EST AGE/SEX: 52 years / Male INDICATIONS: Chest pain. CLINICAL DATA: This is the patient's initial encounter. Patient reports that signs and symptoms have been present for 1 week and indicates a pain score of 5/10. MEDICAL/SURGICAL HISTORY: . Cervical radiculopathy. Coronary artery disease. Diabetes. Fibromya lgia. Neuropathy. . Coronary artery bypass graft. Shoulder. COMPARISON: [facility] [place], CHEST 2V AP&LAT, 04/29/2018. . FINDINGS: A single AP view of the chest demonstrates the lungs to be symmetrically aerated without evidence of mass, infiltrate or effusion. Stable median sternotomy wires. The cardiomediastinal contours are unre markable. Osseous structures are intact. CONCLUSION: 1. No acute cardiopulmonary disease. Electronically signed by: Wally Dobson MD 05/26/2018 3:16 PM EST
[2018-05-26 15:24] LABS: Alanine Aminotransferase 50 U/L (12-78); Albumin 2.3 g/dL (3.4-5.0); Anion Gap 8 meq/L (5-15); Aspartate Aminotransferase 50 U/L (15-37); Blood Urea Nitrogen 37 mg/dL (7-18); Calcium 8.1 mg/dL (8.5-10.1); Carbon Dioxide 25.7 meq/L (21.0-32.0); Chloride 107 meq/L (98-107); Glomerular Filtration Rate 42 mL/min (>89); Glucose,Random 154 mg/dL (74-106); Lipase 207 U/L (73-393); Sodium 141 meq/L (136-145)
[2018-05-26 15:27] LABS: Alkaline Phosphatase 141 U/L (45-117); Total Protein 7.9 g/dL (6.4-8.2)
[2018-05-26] MEDS ORDERED: Morphine Inj 4 MG/ML Vial IV.PUSH ONE ×2 (16:32→21:46)
[2018-05-26 16:54] LABS: Bilirubin,Urine Negative (Negative); Clarity,Urine Hazy (Clear); Color,Urine Yellow (Yellw/Straw); Glucose,Urine (UA) 50 mg/dL (Negative); Hyaline Casts,Urine 11 /lpf (0-3); Leukocyte Esterase,Urine Negative (Negative); Nitrite,Urine Negative (Negative); Specific Gravity,Urine 1.017 (1.002-1.035)
--- NOTE | 2018-05-26 17:04 | XR ---
EXAM DATE: 05/26/2018 5:02 PM EST AGE/SEX: 52 years / Male INDICATIONS: Pelvic pain, no known injury. CLINICAL DATA: This is the patient's initial encounter. Patient reports that signs and symptoms have been present for 1 day and indicates a pain score of 2/10. MEDICAL/SURGICAL HISTORY: . Diabetes. Cardiovascular disease. CABG. COMPARISON: No prior exams available for comparison. FINDINGS: Examination of the pelvis demonstrates no evidence of fracture or dislocation. Bony mineralization i s normal. There is no widening of the sacroiliac joints. No foreign body is identified. CONCLUSION: Negative examination. Electronically signed by: Sam Kenney MD 05/26/2018 5:03 PM EST
[2018-05-26 17:11] LABS: Amphetamine Screen,Urine Neg (Neg); Barbiturate Screen,Urine Neg (Neg); Cannabinoid Screen,Urine Pos (Neg); Cocaine Screen,Urine Neg (Neg); Opiate Screen,Urine Neg (Neg)
--- NOTE | 2018-05-26 17:56 | ED ---
HPI General Chief Complaint: Chest Pain Stated Complaint: Chest/Side Pain Complaint Time Seen by Provider: 05/26/18 14:43 Source: patient Mode of arrival: ambulatory Limitations: no limitations History of Present Illness HPI narrative: 52 YO M with PMH of CAD s/p CABG x 4, HTN, CKD, DM, neuropathy, cocaine abuse, current smoker presents to the ED for evaluation of 8/10 sharp pain of the precordium. Rated 8/10. Gradual onset. Constant. No alleviating or exacerbating factors reported. Patient gestures to the peristernal area to indicate the location of the pain. He denies SOB, diaphoresis, N/V, palpitations. He also complains of bilateral flank pain. He denies abdominal pain, dysuria, hematuria, increased urinary frequency. He denies known injury to the hips. He denies recent overuse or physical exertion. He states this pain has been chronic for a few months now. Denies back pain, radiation of the pain, weakness of the legs. Endorses chronic numbness in the feet secondary to neuropathy. Patient states that he has been noncompliant with his medications for the last few weeks. He attributes this to transportation issues. He came to the emergency room today after going to the [facility] for follow-up appointment. When he complained of chest pain he was sent here. He denies any recent illicit drug use. He continues to smoke. Related Data Home Medications Medication Instructions Recorded Confirmed duloxetine 30 mg PO DAILY 03/31/18 05/26/18 pregabalin [Lyrica] 200 mg PO TID 03/31/18 05/26/18 insulin detemir U-100 [Levemir 16 unit SUBCUT BID 05/26/18 05/26/18 U-100 Insulin] Previous Rx's Medication Instructions Recorded aspirin 81 mg PO DAILY #30 tab 04/10/18 atorvastatin 40 mg PO HS #30 tab 04/10/18 docusate sodium [DOK] 100 mg PO BID #60 cap 04/10/18 hydrocodone-acetaminophen [Mazama] 1 tab PO Q6H PRN #30 tab 04/10/18 metoprolol tartrate 25 mg PO BID #60 tab 04/10/18 blood glucose strip-disp meter #1 each 05/01/18 blood-glucose meter #1 each 05/01/18 Allergies Allergy/AdvReac Type Severity Reaction Status Date / Time Fish Containing Products Allergy Severe Swelling Verified 05/26/18 14:28 of Lip/Tongue/Throat Review of Systems ROS: all other systems reviewed are negative PMFSH Social History Social History Substance History: Past History Second Hand Smoke Exposure: Yes Smoking Status: Current every day smoker Tobacco Type: Cigarettes How Often Do You Have a Drink Containing Alcohol: 2 to 4 times a month Recent Travel in [facility] within the Last 8 Weeks: No Recent Out of Country Travel within the Last 8 Weeks: No Immunization History Tetanus Immunization: Unsure Exam Narrative Exam Narrative: GENERAL: Well-nourished, well-developed, nontoxic-appearing white male in no acute distress. I think that SKIN: Focused skin assessment warm/dry. Well-healing scar of the midline chest without signs of infection. HEAD: Atraumatic. Normocephalic. EYES: Pupils equal and round. No scleral icterus. No injection or drainage. ENT: No nasal bleeding or discharge. Mucous membranes pink and moist. NECK: Trachea midline. No JVD. CARDIOVASCULAR: Regular rate and rhythm. No murmur appreciated. CHEST: Nontender throughout without deformity or crepitus. No retractions. RESPIRATORY: No accessory muscle use. Clear to auscultation. Breath sounds equal bilaterally. GASTROINTESTINAL: Abdomen soft, non-tender, nondistended. Hepatic and splenic margins not palpable. MUSCULOSKELETAL: No obvious deformities. No clubbing. No cyanosis. No edema. NEUROLOGICAL: Awake and alert. No obvious cranial nerve deficits. Motor grossly within normal limits. Normal speech. PSYCHIATRIC: Appropriate mood and affect; insight and judgment normal. Course Initial Documented Vital Signs Temperature 97.7 F 05/26/18 14:26 Pulse Rate 99 H 05/26/18 14:26 Respiratory Rate 20 05/26/18 14:26 Blood Pressure 163/86 H 05/26/18 14:26 Pulse Oximetry 99 05/26/18 14:26 Last Documented Vital Signs Temperature 97.6 F 05/27/18 11:39 Pulse Rate 61 05/27/18 11:39 Respiratory Rate 16 05/27/18 11:39 Blood Pressure 156/75 H 05/27/18 11:39 Pulse Oximetry 98 05/27/18 11:39 Medical Decision Making GINGER Attestation GINGER supervised visit: Yes Attestation: I, Dr. Dominguez, have reviewed the advance practice practitioner's documentation and am in agreement, met with the patient face to face, made the diagnosis, and the medical decision making was done by me. *My assessment and Findings: Chest pain MDM Narrative Medical decision making narrative: 52 YO M with PMH of CAD s/p CABG x 4, HTN, CKD, DM, neuropathy, cocaine abuse, current smoker presents to the ED for evaluation of 8/10 sharp pain of the precordium. Also complains of some chronic pain in the bilateral flanks. States that he has not taken any of his medications in about 2 weeks. Heart rate 99, BP 163/86 on presentation. Physical exam without acute findings. Patient was placed on continuous monitoring, IV was established. EKG without acute findings. Cardiac enzymes negative x1. CXR without acute findings. X-ray of the pelvis without acute findings. Lab work shows BUN of 37, creatinine 1.73. Chronic per chart review. Calcium is 8.1. Albumin 2.3. No culture indicated of the UA. Tox screen positive for cannabinoids. Given his significant risk factors will admit to the chest pain center. Patient's agreeable to this plan. Please see chest pain center notes for disposition. Medical Screen Exam Complete: Yes Emergency Medical Condition: Yes Differential Diagnosis Differential Diagnosis: Chest pain versus musculaoskeletal pain versus noncompliance versus ACS versus malingering versus other Lab Data Result diagrams: 05/26/18 14:55 05/26/18 14:55 Lab Results 05/26/18 05/26/18 05/26/18 Range/Units 14:55 14:55 16:37 WBC 4.8 (4.0-11.0) th/mm3 RBC 3.90 L (4.50-5.90) mil/mm3 Hgb 11.7 L (13.0-17.0) gm/dL Hct 34.9 L (39.0-51.0) % MCV 89.6 (80.0-100.0) fL MCH 30.0 (27.0-34.0) pg MCHC 33.5 (32.0-36.0) % RDW 17.2 (11.6-17.2) % Plt Count 169 (150-450) th/mm3 MPV 9.0 (7.0-11.0) fL Neut % (Auto) 52.5 (16.0-70.0) % Lymph % (Auto) 28.2 (9.0-44.0) % Villalba % (Auto) 8.6 H (0.0-8.0) % Eos % (Auto) 10.1 H (0.0-4.0) % Baso % (Auto) 0.6 (0.0-2.0) % Neut # (Auto) 2.5 (1.8-7.7) th/mm3 Lymph # (Auto) 1.3 (1.0-4.8) th/mm3 Villalba # (Auto) 0.4 (0.0-0.9) th/mm3 Eos # (Auto) 0.5 H (0.0-0.4) th/mm3 Baso # (Auto) 0.0 (0.0-0.2) th/mm3 WBC Differential . Differential Comment Auto diff final Sodium 141 (136-145) meq/L Potassium 4.0 (3.5-5.1) meq/L Chloride 107 (98-107) meq/L Carbon Dioxide 25.7 (21.0-32.0) meq/L Anion Gap 8 (5-15) meq/L BUN 37 H (7-18) mg/dL Creatinine 1.73 H (0.60-1.30) mg/dL Estimated GFR 42 L (>89) mL/min POC Glucose (68-110) mg/dl Random Glucose 154 H (74-106) mg/dL Calcium 8.1 L (8.5-10.1) mg/dL Total Bilirubin 0.2 (0.2-1.0) mg/dL AST 50 H (15-37) U/L ALT 50 (12-78) U/L Alkaline Phosphatase 141 H (45-117) U/L Total Creatine Kinase (39-308) U/L Troponin I Less than 0.02 L (0.02-0.05) ng/mL Total Protein 7.9 (6.4-8.2) g/dL Albumin 2.3 L (3.4-5.0) g/dL Lipase 207 (73-393) U/L Urine Color (Yellw/Straw) Urine Clarity (Clear) Urine pH (5.0-8.5) Ur Specific [place] (1.002-1.035) Urine Protein (Neg-Trace) mg/dL Urine Glucose (UA) (Negative) mg/dL Urine Ketones (Negative) mg/dL Urine Occult Blood (Negative) Urine Nitrate (Negative) Urine Bilirubin (Negative) Urine Urobilinogen (Less than 2) mg/dL Ur Leukocyte Esterase (Negative) Urine RBC (0-3) /hpf Hyaline Casts (0-3) /lpf Micro UA Comment Ur Microscopic Review Urine Culture Comments Urine Opiates Screen Neg (Neg) Ur Barbiturates Screen Neg (Neg) Ur Amphetamines Screen Neg (Neg) U Benzodiazepines Scrn Neg (Neg) Urine Cocaine Screen Neg (Neg) U Cannabinoids Screen Pos H (Neg) 05/26/18 05/26/18 05/26/18 Range/Units 16:37 18:19 21:45 WBC (4.0-11.0) th/mm3 RBC (4.50-5.90) mil/mm3 Hgb (13.0-17.0) gm/dL Hct (39.0-51.0) % MCV (80.0-100.0) fL MCH (27.0-34.0) pg MCHC (32.0-36.0) % RDW (11.6-17.2) % Plt Count (150-450) th/mm3 MPV (7.0-11.0) fL Neut % (Auto) (16.0-70.0) % Lymph % (Auto) (9.0-44.0) % Villalba % (Auto) (0.0-8.0) % Eos % (Auto) (0.0-4.0) % Baso % (Auto) (0.0-2.0) % Neut # (Auto) (1.8-7.7) th/mm3 Lymph # (Auto) (1.0-4.8) th/mm3 Villalba # (Auto) (0.0-0.9) th/mm3 Eos # (Auto) (0.0-0.4) th/mm3 Baso # (Auto) (0.0-0.2) th/mm3 WBC Differential Differential Comment Sodium (136-145) meq/L Potassium (3.5-5.1) meq/L Chloride (98-107) meq/L Carbon Dioxide (21.0-32.0) meq/L Anion Gap (5-15) meq/L BUN (7-18) mg/dL Creatinine (0.60-1.30) mg/dL Estimated GFR (>89) mL/min POC Glucose (68-110) mg/dl Random Glucose (74-106) mg/dL Calcium (8.5-10.1) mg/dL Total Bilirubin (0.2-1.0) mg/dL AST (15-37) U/L ALT (12-78) U/L Alkaline Phosphatase (45-117) U/L Total Creatine Kinase 80 77 (39-308) U/L Troponin I Less than 0.02 L 0.02 (0.02-0.05) ng/mL Total Protein (6.4-8.2) g/dL Albumin (3.4-5.0) g/dL Lipase (73-393) U/L Urine Color Yellow (Yellw/Straw) Urine Clarity Hazy H (Clear) Urine pH 5.0 (5.0-8.5) Ur Specific [place] 1.017 (1.002-1.035) Urine Protein 500 or greater (Neg-Trace) mg/dL Urine Glucose (UA) 50 (Negative) mg/dL Urine Ketones Negative (Negative) mg/dL Urine Occult Blood Small H (Negative) Urine Nitrate Negative (Negative) Urine Bilirubin Negative (Negative) Urine Urobilinogen Less than 2 (Less than 2) mg/dL Ur Leukocyte Esterase Negative (Negative) Urine RBC 3 (0-3) /hpf Hyaline Casts 11 (0-3) /lpf Micro UA Comment Culture not ind Ur Microscopic Review Not Reportable Urine Culture Comments Culture not ind Urine Opiates Screen (Neg) Ur Barbiturates Screen (Neg) Ur Amphetamines Screen (Neg) U Benzodiazepines Scrn (Neg) Urine Cocaine Screen (Neg) U Cannabinoids Screen (Neg) 05/27/18 Range/Units 07:45 WBC (4.0-11.0) th/mm3 RBC (4.50-5.90) mil/mm3 Hgb (13.0-17.0) gm/dL Hct (39.0-51.0) % MCV (80.0-100.0) fL MCH (27.0-34.0) pg MCHC (32.0-36.0) % RDW (11.6-17.2) % Plt Count (150-450) th/mm3 MPV (7.0-11.0) fL Neut % (Auto) (16.0-70.0) % Lymph % (Auto) (9.0-44.0) % Villalba % (Auto) (0.0-8.0) % Eos % (Auto) (0.0-4.0) % Baso % (Auto) (0.0-2.0) % Neut # (Auto) (1.8-7.7) th/mm3 Lymph # (Auto) (1.0-4.8) th/mm3 Villalba # (Auto) (0.0-0.9) th/mm3 Eos # (Auto) (0.0-0.4) th/mm3 Baso # (Auto) (0.0-0.2) th/mm3 WBC Differential Differential Comment Sodium (136-145) meq/L Potassium (3.5-5.1) meq/L Chloride (98-107) meq/L Carbon Dioxide (21.0-32.0) meq/L Anion Gap (5-15) meq/L BUN (7-18) mg/dL Creatinine (0.60-1.30) mg/dL Estimated GFR (>89) mL/min POC Glucose 90 (68-110) mg/dl Random Glucose (74-106) mg/dL Calcium (8.5-10.1) mg/dL Total Bilirubin (0.2-1.0) mg/dL AST (15-37) U/L ALT (12-78) U/L Alkaline Phosphatase (45-117) U/L Total Creatine Kinase (39-308) U/L Troponin I (0.02-0.05) ng/mL Total Protein (6.4-8.2) g/dL Albumin (3.4-5.0) g/dL Lipase (73-393) U/L Urine Color (Yellw/Straw) Urine Clarity (Clear) Urine pH (5.0-8.5) Ur Specific [place] (1.002-1.035) Urine Protein (Neg-Trace) mg/dL Urine Glucose (UA) (Negative) mg/dL Urine Ketones (Negative) mg/dL Urine Occult Blood (Negative) Urine Nitrate (Negative) Urine Bilirubin (Negative) Urine Urobilinogen (Less than 2) mg/dL Ur Leukocyte Esterase (Negative) Urine RBC (0-3) /hpf Hyaline Casts (0-3) /lpf Micro UA Comment Ur Microscopic Review Urine Culture Comments Urine Opiates Screen (Neg) Ur Barbiturates Screen (Neg) Ur Amphetamines Screen (Neg) U Benzodiazepines Scrn (Neg) Urine Cocaine Screen (Neg) U Cannabinoids Screen (Neg) Imaging Data Radiologist's impression: Chest X-Ray 05/26/18 14:36 CONCLUSION: 1. No acute cardiopulmonary disease. Pelvis X-Ray 05/26/18 16:32 CONCLUSION: Negative examination. ECG Data Attestation: I personally reviewed and interpreted this ECG as follows: Interpretation: EKG rate 92, sinus rhythm. UT interval 128, QRS 92, QTC 391 ms. Similar to previous EKG. No acute ST changes reviewed by Dr. Dominguez. Discharge Plan Discharge Disposition Patient Disposition: 30 Still Patient Discharge Condition Condition: Stable Discharge Order Discharge Orders: Discharge Order (Routine); Ordered 05/27/18 Ordered By: Gibson Sotelo Physicians Team ED Provider: Enrique Dominguez ED Midlevel Provider: Casandra Alvarez Primary Care Provider: Tina Mccracken, Attending Provider: Yanna López ED Status: Left Department Discharge Information Discharge Date/Time: 05/26/18 23:43
[2018-05-26] MEDS ORDERED: Sodium Chlor 0.9% Inj 500 ML IV.SIG ONE (18:03)
[2018-05-26 19:20] LABS: Creatine Kinase 80 U/L (39-308)
--- NOTE | 2018-05-26 21:48 | ECG ---
Date Performed: 05/26/2018 Time Performed: 18:17:51 PTAGE: 52 years EKG: Sinus rhythm NONSPECIFIC T-WAVE ABNORMALITY ABNORMAL ECG No significant change from prior electrocardiogram. PREVIOUS TRACING : 04/28/2018 16.46 DOCTOR: Aung Michelle Interpretating Date/Time 05/26/2018 21:46:28
--- NOTE | 2018-05-26 21:55 | ECG ---
Date Performed: 05/26/2018 Time Performed: 14:40:32 PTAGE: 52 years EKG: Sinus rhythm Nonspecific T wave changes ABNORMAL ECG Compared to prior electrocardiogram, Prior electrocardiogram has baseline artifact although I do not see definite changes. DOCTOR: Aung Michelle Interpretating Date/Time 05/26/2018 21:54:56
[2018-05-26 22:29] LABS: Troponin I 0.02 ng/mL (0.02-0.05)
[2018-05-27] MEDS ORDERED: Morphine Inj 4 MG/ML Vial IV.PUSH PRN (01:26)
[2018-05-27 07:50] VITALS: RESP 16
[2018-05-27] MEDS ORDERED: Metoprolol Tartrate 25 MG Tablet PO SCH (09:00)
--- NOTE | 2018-05-27 10:58 | P.HPCA ---
History of Present Illness Primary Care Physician: Tina Mccracken Chief Complaint: Chest pain History of Present Illness: This is a 52-year-old male with history of CAD status post four-vessel CABG 04/06, hypertension, chronic kidney disease, diabetes, tobacco abuse that presents to ED claiming of 1 weeks constant chest discomfort. It is in the center of his chest. Has a hard time describing characteristic of the discomfort. He times short of breath with it. Denies nausea or diaphoresis. States that it is not similar to discomfort he had when needing bypass. He has followed up with his cardiovascular thoracic surgeon but has not followed up with a high school tutor to do the heart catheterization. He has seen his PCP, also attempted to see PCP yesterday but they were unable to fit him in. States he has appointment with his cardiovascular thoracic surgeon next week. Patient has history of CAD status post four-vessel bypass 03/2618. Also history of hypertension, hyperlipidemia, diabetes, tobacco abuse. Is been noncompliant with medication. Patient states that he flushed his medicines down the toilet. 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 Patient continues to smoke about 1 pack a series daily for the past month prior to smoking 1/2 pack of cigarettes daily for approximately 30-35 years. States he has had not used cocaine in several months. States he lives with his son. Denies any knowledge of family history of CAD. - Diagnosis (1) Atypical chest pain (2) History of coronary artery disease (3) History of coronary artery bypass graft (4) Diabetes (5) Hyperlipidemia (6) Tobacco abuse (7) Hypertension (8) Chronic kidney disease (CKD) Review of Systems General: Patient denies fevers, chills, and recent travel. HEENT: Patient denies headache, sore throat, difficulty swallowing. Cardiovascular: Has the chest discomfort as mentioned above. Denies sensation of heart beating rapidly or irregularly. No syncope. Denies diaphoresis. Respiratory: Intermittent shortness of breath. Denies inspirational chest discomfort. Denies coughing wheezing or hemoptysis. GI: Patient denies nausea, vomiting, diarrhea, abdominal pain, bloody stools. Musculoskeletal: Patient denies joint pain or edema. Denies calf pain or edema. Neurovascular: Patient denies numbness, tingling, weakness in extremities. Denies headache. Endocrine: Denies polyuria and polydipsia. Hematologic: Denies easy bruising. Skin: Denies rash or itching. PMFSH - History History Provided By: Patient - Medical History Medical History: Medical History (Last Reviewed 05/26/18 @ 14:27 by Susi Boston) Cervical radiculopathy due to degenerative joint disease of spine Coronary artery disease involving coronary bypass graft Diabetes Fibromyalgia Neuropathy - Surgical History Surgical History: Surgical History (Last Reviewed 05/26/18 @ 14:27 by Susi Boston) Hx of CABG Hx of shoulder surgery - Tobacco History Second Hand Smoke Exposure: Yes Tobacco Use In Past 30 Days: Yes Smoking Status: Current every day smoker Tobacco Type: Cigarettes - Alcohol History How Often Do You Have a Drink Containing Alcohol: 2 to 4 times a month - Substance Use History Substance History: Past History - Travel History Recent Travel in the [place] Within the Last 8 Weeks: No Recent Travel Out of the Country Within the Last 8 Weeks: No - Immunization History Tetanus Immunization: Unsure Medications and Allergies Active Medications: Active Medications Aspirin (Aspirin Chew) 81 mg PO DAILY [facility] Last Admin: 05/27/18 09:48 Dose: 81 mg Atorvastatin Calcium (Lipitor) 40 mg PO HS [facility] Clonidine HCl (Catapres) 0.2 mg PO Q6H PRN PRN Reason: SYSTOLIC BP > 170 Duloxetine HCl (Cymbalta) 30 mg PO DAILY [facility] Last Admin: 05/27/18 09:48 Dose: 30 mg Metoprolol Tartrate (Lopressor) 25 mg PO BID [facility] Last Admin: 05/27/18 09:48 Dose: 25 mg Morphine Sulfate (Morphine Inj) 4 mg IV.PUSH Q6H PRN PRN Reason: PAIN SCALE 5-10 Last Admin: 05/27/18 04:49 Dose: 4 mg Nitroglycerin (Nitro-Bid 2% Oint) 1 inch TOPICAL Q6H PRN PRN Reason: CHEST PAIN Pregabalin (Lyrica) 200 mg PO TID [facility] Last Admin: 05/27/18 09:48 Dose: 200 mg Sodium Chloride (Ns Flush) 2 ml IV.FLUSH BID [facility] Last Admin: 05/27/18 09:49 Dose: 2 ml Sodium Chloride (Ns Flush) 2 ml IV.FLUSH PRN PRN PRN Reason: FLUSH AFTER USING IV ACCESS Allergies Allergy/AdvReac Type Severity Reaction Status Date / Time Fish Containing Products Allergy Severe Swelling Verified 05/26/18 14:28 of Lip/Tongue/Throat Home Medications Medication Instructions Recorded Confirmed Type duloxetine 30 mg PO DAILY 03/31/18 05/26/18 History pregabalin [Lyrica] 200 mg PO TID 03/31/18 05/26/18 History insulin detemir U-100 [Levemir 16 unit SUBCUT BID 05/26/18 05/26/18 History U-100 Insulin] Exam Vital signs: Vital Signs 05/26/18 14:26 05/26/18 14:40 05/26/18 18:00 Temperature 97.7 F Pulse Rate 99 H 96 H 72 Respiratory Rate 20 22 17 Blood Pressure 163/86 H 156/87 H 159/84 H Pulse Oximetry 99 99 05/26/18 18:18 05/26/18 19:23 05/27/18 00:00 Temperature 98.0 F Pulse Rate 75 75 70 Respiratory Rate 21 18 18 Blood Pressure 169/86 H 156/78 H 195/98 H Pulse Oximetry 98 99 98 05/27/18 00:36 05/27/18 01:30 05/27/18 03:30 Temperature 98.2 F Pulse Rate 77 61 Respiratory Rate 18 Blood Pressure 188/86 H 132/70 Pulse Oximetry 97 05/27/18 04:00 05/27/18 07:49 05/27/18 08:00 Temperature 97.7 F Pulse Rate 60 66 Respiratory Rate 18 16 Blood Pressure 168/79 H Pulse Oximetry 99 Intake & Output 05/26/18 05/27/18 05/27/18 18:59 06:59 18:59 Intake Total 500 / 500 Balance 500 / 500 Weight 74.843 kg 74.843 kg Intake: IV 500 / 500 NS Inj 500 ML @ Wide Open IV. 500 / 500 SIG BOLUS ONE Rx#:[id number] Other: Date of Last Bowel Movement 05/26/18 Weight On Admission 74.843 kg Narrative: GENERAL: This is a well-nourished, well-developed patient, in no apparent distress. Patient speaks in clear complete sentences. Patient is pleasant. HEENT: Head is atraumatic and normocephalic. Neck is supple without lymphadenopathy and trachea is midline. No JVD or carotid bruits. CARDIOVASCULAR: Regular rate and rhythm without murmurs, gallops, or rubs. RESPIRATORY: Well-healed midline scar over sternum from prior sternotomy. Clear to auscultation. Breath sounds equal bilaterally. No wheezes, rales, or rhonchi. Chest wall is tender worsening the symptoms that he has had. No use of accessory muscles. GASTROINTESTINAL: Abdomen is nontender, nondistended. Abdomen soft. No obvious pulsatile mass or bruit. No CVA tenderness. Strong femoral pulses bilaterally. Normal bowel sounds in all quadrants. MUSCULOSKELETAL: Patient is moving upper and lower extremities freely. No calf tenderness or edema, no Homans sign. Strong pulses in upper and lower extremities. NEUROLOGICAL: Patient is alert and oriented. Cranial nerves 2-12 are grossly intact. No focal deficits and speech is clear. SKIN: No rash and turgor is normal. Results 05/26/18 14:55 05/26/18 14:55 Cardiac Enzymes 05/26/18 05/26/18 05/26/18 Range/Units 14:55 18:19 21:45 AST 50 H (15-37) U/L Troponin I Less than 0.02 L Less than 0.02 L 0.02 (0.02-0.05) ng/mL CBC 05/26/18 Range/Units 14:55 WBC 4.8 (4.0-11.0) th/mm3 RBC 3.90 L (4.50-5.90) mil/mm3 Hgb 11.7 L (13.0-17.0) gm/dL Hct 34.9 L (39.0-51.0) % Plt Count 169 (150-450) th/mm3 Neut # (Auto) 2.5 (1.8-7.7) th/mm3 Lymph # (Auto) 1.3 (1.0-4.8) th/mm3 [place] # (Auto) 0.4 (0.0-0.9) th/mm3 Eos # (Auto) 0.5 H (0.0-0.4) th/mm3 Baso # (Auto) 0.0 (0.0-0.2) th/mm3 Comprehensive Metabolic Panel 05/26/18 Range/Units 14:55 Sodium 141 (136-145) meq/L Potassium 4.0 (3.5-5.1) meq/L Chloride 107 (98-107) meq/L Carbon Dioxide 25.7 (21.0-32.0) meq/L BUN 37 H (7-18) mg/dL Creatinine 1.73 H (0.60-1.30) mg/dL Calcium 8.1 L (8.5-10.1) mg/dL AST 50 H (15-37) U/L ALT 50 (12-78) U/L Alkaline Phosphatase 141 H (45-117) U/L Total Protein 7.9 (6.4-8.2) g/dL Albumin 2.3 L (3.4-5.0) g/dL Intake and Output 05/26/18 05/27/18 05/27/18 22:59 06:59 14:59 Intake Total 500 / 500 Balance 500 / 500 Intake: IV 500 / 500 NS Inj 500 ML @ Wide Open IV. 500 / 500 SIG BOLUS ONE Rx#:[id number] Other: Date of Last Bowel Movement 05/26/18 Weight 74.843 kg Weight On Admission 74.843 kg - Imaging and Cardiology Imaging: Impressions Chest X-Ray 05/26/18 14:36 CONCLUSION: 1. No acute cardiopulmonary disease. Pelvis X-Ray 05/26/18 16:32 CONCLUSION: Negative examination. EKG interpretations - EKG EKG shows: sinus rhythm (EKGs are sinus rhythm with nonspecific T wave changes.) Caprini VTE Risk Assessment Caprini VTE Risk Assessment: No/Low Risk (score <= 1) Caprini Risk Assessment Model: Point Value = 1 Point Value = 2 Point Value = 3 Point Value = 5 Age 41-60 Minor surgery BMI > 25 kg/m2 Swollen legs Varicose veins or History of unexplained or recurrent spontaneous Oral contraceptives or hormone replacement Sepsis (< 1 month) Serious lung disease, including pneumonia (< 1 month) Abnormal pulmonary function Acute myocardial infarction Congestive heart failure (< 1 month) History of inflammatory bowel disease Medical patient at bed rest Age 61-74 Arthroscopic surgery Major open surgery (> 45 min) Laparoscopic surgery (> 45 min) Malignancy Confined to bed (> 72 hours) Immobilizing plaster cast Central venous access Age >= 75 History of VTE Family history of VTE Factor V Leiden Prothrombin [id number] Lupus anticoagulant Anticardiolipin antibodies Elevated serum homocysteine Heparin-induced thrombocytopenia Other congenital or acquired thrombophilia Stroke (< 1 month) Elective arthroplasty Hip, pelvis, or leg fracture Acute spinal cord injury (< 1 month) Prophylaxis Regimen: Total Risk Factor Score Risk Level Prophylaxis Regimen 0-1 Low Early ambulation 2 Moderate Order ONE of the following: *Sequential Compression Device (SCD) *Heparin 5000 units SQ BID 3-4 Higher Order ONE of the following medications: *Heparin 5000 units SQ TID *Enoxaparin/Lovenox 40 mg SQ daily (WT < 150 kg, CrCl > 30 mL/min) *Enoxaparin/Lovenox 30 mg SQ daily (WT < 150 kg, CrCl > 10-29 mL/min) *Enoxaparin/Lovenox 30 mg SQ BID (WT < 150 kg, CrCl > 30 mL/min) AND/OR *Sequential Compression Device (SCD) 5 or more Highest Order ONE of the following medications: *Heparin 5000 units SQ TID (Preferred with Epidurals) *Enoxaparin/Lovenox 40 mg SQ daily (WT < 150 kg, CrCl > 30 mL/min) *Enoxaparin/Lovenox 30 mg SQ daily (WT < 150 kg, CrCl > 10-29 mL/min) *Enoxaparin/Lovenox 30 mg SQ BID (WT < 150 kg, CrCl > 30 mL/min) AND *Sequential Compression Device (SCD) Assessment and Plan - Assessment (1) Atypical chest pain Code(s): R07.89 - Other chest pain Status: Acute (2) History of coronary artery disease Code(s): Z86.79 - Personal history of other diseases of the circulatory system Status: Acute (3) History of coronary artery bypass graft Code(s): Z95.1 - Presence of aortocoronary bypass graft Status: Acute (4) Diabetes Code(s): E11.9 - Type 2 diabetes mellitus without complications Status: Acute (5) Hyperlipidemia Code(s): E78.5 - Hyperlipidemia, unspecified Status: Acute (6) Tobacco abuse Code(s): Z72.0 - Tobacco use Status: Chronic (7) Hypertension Code(s): I10 - Essential (primary) hypertension Status: Chronic (8) Chronic kidney disease (CKD) Code(s): N18.9 - Chronic kidney disease, unspecified Status: Chronic - Plan * Atypical chest pain: Patient's discomfort seems musculoskeletal in nature. He had serial cardiac enzymes and EKGs for ruling out purposes. He was seen by Dr. Shearer of cardiology in the chest pain center and will be discharged home at this time. Is been advised to use Tylenol and moist heat or ice to the affected area. He needs to keep his appointment with his cardiovascular thoracic surgeon. He also needs to make arrangements to follow-up with a high school tutor Dr. Azael Reeder to perform heart catheterization and follow-up with his PCP. Return to ED for interval issues. * History of CAD: Patient has had CAD. Had four-vessel bypass. He is to keep his appoint with his surgeon and his high school tutor at the heart catheterization. Continue medications. * Hypertension: Continue medications. * Hyperlipidemia: Continue medications. * Diabetes: Sliding scale insulin coverage while in chest pain center. Resume medication at home. Follow diabetic diet. * Tobacco abuse: Patient counseled on the importance of smoking cessation. * Chronic kidney disease: Patient is to follow-up with his PCP. Patient is stable at this time. He is agreeable to this plan. H&P: Quality - VTE Deep Vein Thrombosis/Pulmonary Embolism Present on Admission: No (7) Hypertension Qualifiers:
[2018-05-27 11:41] VITALS: BP 156/75; PULSE 61; TEMP 97.6; O2SAT 98
--- NOTE | 2018-05-27 14:36 | ECG ---
Date Performed: 05/26/2018 Time Performed: 21:38:16 PTAGE: 52 years EKG: Sinus rhythm NONSPECIFIC T-WAVE ABNORMALITY ABNORMAL ECG PREVIOUS TRACING : 05/26/2018 18.17 Since previous tracing, no significant change noted DOCTOR: Griffin Shearer Interpretating Date/Time 05/27/2018 14:35:54
== END 2018-05-27 12:08 | disposition home or self-care (01) ==
LOC: NEPC 14:07 → NEDA 14:07 → NEPHCDU 23:48
PROVIDERS: ADMIT Internal Medicine Interventional Cardiology; ATTEND Internal Medicine Interventional Cardiology